=== PATIENT | male | born 1960 | race Caucasian/White ===

== ENCOUNTER 2024-09-05 13:45 | Outpatient (AMB) | payer OTHER, SELFPAY ==
--- NOTE | 2024-09-05 13:45 | MHC.PC.OV ---
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 Accompanied by: Self / Same As Patient Allergies No Known Allergies Allergy (Verified 09/05/24 13:48) Medication List - Last Reconciled 09/06/24 by Renny Burton MD dextroamphetamine sulfate 10 mg PO DAILY Tobacco use date assessed: 09/05/24 Fall risk assessment: No Falls in past year Last assessed Fall Risk: 09/05/24 Dental Screening Dental Screen Date: 09/05/24 Did you have a dental visit in the last 12 months?: Yes Did you have a dental problem in the last 6 months where you did not have access to dental care?: No Was dental information given to patient?: Patient has dentist HPI PE HPI Details ADHD on rx; doing well [facility] Medical History (Updated 09/06/24 @ 09:00 by Renny Burton MD) Elevated BP without diagnosis of hypertension Surgical History History of arthroscopy of right knee Family History Father No problems noted. Mother No problems noted. Family/Other Malignant hyperthermia Social History (Updated 11/08/20 @ 10:44 by MIHAELA Chapman) Housing: House Alcohol intake: current Alcohol intake frequency: a few times a week Alcohol type: beer Patient Tobacco Use Status: Never used Tobacco Tobacco use type: Cigarette e-Cigarette/Vaping Use: Never Used Second Hand Smoke Exposure: No service: No Current occupational status: employed Cognitive needs: No Hearing needs: No Vision needs: Yes Questionnaire PHQ-9 Over the last 2 weeks, how often have you been bothered by any of the following problems? 1. Little interest or pleasure in doing things: not at all 2. Feeling down, depressed, or hopeless: not at all 3. Trouble falling or staying asleep, or sleeping too much: not at all 4. Feeling tired or having little energy: not at all 5. Poor appetite or overeating: not at all 6. Feeling bad about yourself - or that you are a failure or have let yourself or your family down: not at all 7. Trouble concentrating on things, such as reading the newspaper or watching television: not at all 8. Moving or speaking so slowly that other people could have noticed. Or the opposite - being so fidgety or restless that you have been moving around a lot more than usual: not at all 9. Thoughts that you would be better off or of hurting yourself in some way: not at all Total score: 0 Depression Screening Interpretation: Negative Depression Screening Done: Yes 72948 - PHQ-9 Billing: Yes Source: Developed by Drs. George Dela Cruz, Ana Stanley, Clarence Sifuentes and colleagues, with an educational binta from [employer]. Thrive Questionnaire Date Thrive assessed: 09/05/24 I am a: Patient What is your living situation today?: I have a steady place to live Within the past 12 months, did the food you bought not last and you didn't have the money to get more?: Never true Within the past 12 months, did you worry whether your food would run out before you got money to buy more?: Never true THRIVE Score: 0 AUDIT C Alcohol Use Questionnaire (AUDIT-C) 1. How often do you have a drink containing alcohol?: Never Total Score: 0 Score Reviewed/Action Taken: Yes ANASTASIIA-7 AMB Questionnaire ANASTASIIA-7 Date ANASTASIIA - 7 assessed: 09/05/24 Feeling nervous, anxious, or on edge: 0 = Not at all Not being able to stop or control worryin = Not at all Worrying too much about different things: 0 = Not at all Trouble relaxin = Not at all Being so restless that it is hard to sit still: 0 = Not at all Becoming easily annoyed or irritable: 0 = Not at all Feeling afraid as if something awful might happen: 0 = Not at all Total ANASTASIIA-7 score (0-4 normal; 5-9 mild; 10-14 moderate; 15-21 severe): 0 Source: Developed by Drs. George Dela Cruz, Ana Stanley, Clarence Sifuentes and colleagues, with an educational binta from [employer]. ANASTASIIA-7 Assessment Billing ANASTASIIA-7 Assessment Tool: ANASTASIIA-7 Assessment 96698 Review of Systems Const Denies chills, Denies fatigue, Denies headache(s) and Denies weight loss Eyes Denies change in vision, Denies diplopia and Denies eye pain ENT Denies vertigo, Denies dizziness, Denies headache(s) and Denies nasal discharge Card Denies chest pain, Denies rapid heart rate and Denies dyspnea on exertion Resp Denies chest congestion, Denies cough, Denies pain with cough and Denies dyspnea on exertion GI Denies abdominal pain, Denies hematochezia and Denies change in bowel habits Musc Denies myalgias, Denies arthralgias and Denies joint swelling Skin/Breast Denies lesions and Denies unusual bruising Neuro Denies vertigo, Denies dizziness, Denies headache(s) and Denies focal weakness Endo Denies fatigue Physical exam (Primary Care) Vital Signs: Last Vital Signs Pulse 79 09/05/24 13:46 BP 156/102 H 09/05/24 13:46 Pulse Ox 92 09/05/24 13:46 Oxygen Delivery Method Room Air 09/05/24 13:46 BMI result Body Mass Index 24.8 Tobacco/Smoking Status: Tobacco use Status Tobacco use date assessed 09/05/24 09/05/24 13:51 Patient Tobacco Use Status Never used Tobacco 09/05/24 13:51 Tobacco use type Cigarette 09/05/24 13:51 e-Cigarette/Vaping Use Never Used 09/05/24 13:51 PHQ-9: PHQ-9 Score PHQ-9: Total score 0 09/05/24 13:51 Depression Screening Interpretation: Negative Thrive Assessment: Date of Thrive Assessment Date Thrive assessed 09/05/24 09/05/24 13:51 Const General: cooperative, healthy appearing and no acute distress Orientation/consciousness: oriented to person, oriented to place and oriented to time [facility] Head: Yes normal to inspection, Yes normocephalic and Yes atraumatic Mouth: Normal oral and palatal mucosa present and tongue normal Throat: Yes posterior oropharynx normal and Yes uvula midline Eyes General: appearance normal, both eyes and all related structures Neck Neck: Yes normal visual inspection, Yes full ROM and Yes no lymphadenopathy Thyroid: Thyroid normal Carotids: normal carotid upstroke Chest Chest palpation & inspection: normal inspection of the chest Resp Effort & Inspection: normal respiratory effort and able to speak in complete sentences Auscultation: clear to auscultation bilaterally Cardio Jugular venous distension: no JVD Palpation: normal PMI Rate: regular rate Rhythm: regular rhythm Heart sounds: S1 normal heart sound present and S2 normal heart sound present GI Inspection: Yes normal to inspection Palpation (GI): Soft to palpation and No hepatosplenomegaly present Auscultation: normal bowel sounds General: Yes no CVA tenderness Back/Spine/Pelvis Back: no CVA tenderness Skin General skin exam: no rashes or lesions noted Neuro General: oriented to person, oriented to place and oriented to time Extrem General: Yes normal to inspection and Yes full ROM Coding Level of Care Code Est Pt Prev Care >65y(24967) Diagnoses Physical exam Z00.00 ADHD F90.9 Additional Codes ANASTASIIA-7 Assessment Billing - ANASTASIIA-7 Assessment Tool: ANASTASIIA-7 Assessment 67840 ([id number]) Assessment & Plan Assessment & Plan (1) Physical exam: Code(s): Z00.00 - Encounter for general adult medical examination without abnormal findings Category: Medical Plan: stable; do labs (2) ADHD: Code(s): F90.9 - Attention-deficit hyperactivity disorder, unspecified type Category: Medical Plan: stable; same rx Orders: Orders Lipid Panel 09/05/24 Z13.220 - Encounter for screening for lipoid disorders Complete Blood Count Auto Diff 09/05/24 Z13.0 - Encounter for screening for diseases of the blood and blood-forming organs and certain disorders involving the immune mechanism Thyroid Stimulating Hormone 09/05/24 Z13.29 - Encounter for screening for other suspected endocrine disorder Comprehensive Shields. Panel Fast 09/05/24 Z13.9 - Encounter for screening, unspecified Medications: Refilled dextroamphetamine sulfate administer doses at least 4-6 hours apart 10 mg PO DAILY 30 tabs 0RF
[2024-09-05 13:46] VITALS: BP 156/102; PULSE 79; O2SAT 92; BMI 24.8
== END 2024-09-05 14:19 | disposition home or self-care (01) ==
PROVIDERS: PCP Internal Medicine; Visit Provider Internal Medicine
DX: Z00.00 Encounter for general adult medical examination without abnormal findings (principal); F90.9 Attention-deficit hyperactivity disorder, unspecified type

== ENCOUNTER → 2024-09-05 13:45 | Outpatient (BNVA) | payer OTHER, SELFPAY | PROVIDERS: PCP Internal Medicine; Visit Provider Internal Medicine | DX: Z00.00 Encounter for general adult medical examination without abnormal findings (principal); F90.9 Attention-deficit hyperactivity disorder, unspecified type | CPT/HCPCS: 96127 ==

== ENCOUNTER → 2024-09-29 08:03 | Outpatient (BNVA) | payer OTHER, SELFPAY | PROVIDERS: PCP Internal Medicine ==

== ENCOUNTER 2024-11-17 09:21 | Outpatient (AMB) | payer OTHER, SELFPAY ==
[2024-11-17 09:23] VITALS: BP 148/108; PULSE 84; O2SAT 98; BMI 25.6
--- NOTE | 2024-11-17 09:23 | MHC.PC.OV ---
Vital Signs 11/17/24 09:23 Height 6 ft 2 in Weight 199 lb 8 oz BMI 25.6 BP 148/108 H Blood Pressure Location Rt brachial Position Sitting Pulse 84 Pulse Source Pulse Oximeter Pulse Oximetry (%) 98 Oxygen Delivery Method Room Air Intake Visit Reasons: BP follow up Allergies No Known Allergies Allergy (Verified 11/17/24 09:27) Medication List - Last Reconciled 11/17/24 by Renny Burton MD dextroamphetamine sulfate 10 mg PO DAILY lisinopril 10 mg PO DAILY Tobacco use date assessed: 11/17/24 Fall risk assessment: No Falls in past year Last assessed Fall Risk: 11/17/24 Dental Screening Dental Screen Date: 11/17/24 Did you have a dental visit in the last 12 months?: Yes Did you have a dental problem in the last 6 months where you did not have access to dental care?: No Was dental information given to patient?: Patient has dentist HPI BP follow up HPI Details BP has been elevated for a few months [facility] Medical History Elevated BP without diagnosis of hypertension Surgical History History of arthroscopy of right knee Family History Father No problems noted. Mother No problems noted. Family/Other Malignant hyperthermia Social History Housing: House Alcohol intake: current Alcohol intake frequency: a few times a week Alcohol type: beer Patient Tobacco Use Status: Current everyday Tobacco user Tobacco use type: Cigar (2-3 a day) e-Cigarette/Vaping Use: Never Used Second Hand Smoke Exposure: No service: No Current occupational status: employed Cognitive needs: No Hearing needs: No Vision needs: Yes Questionnaire PHQ-9 Over the last 2 weeks, how often have you been bothered by any of the following problems? 1. Little interest or pleasure in doing things: not at all 2. Feeling down, depressed, or hopeless: not at all 3. Trouble falling or staying asleep, or sleeping too much: not at all 4. Feeling tired or having little energy: not at all 5. Poor appetite or overeating: not at all 6. Feeling bad about yourself - or that you are a failure or have let yourself or your family down: not at all 7. Trouble concentrating on things, such as reading the newspaper or watching television: not at all 8. Moving or speaking so slowly that other people could have noticed. Or the opposite - being so fidgety or restless that you have been moving around a lot more than usual: not at all 9. Thoughts that you would be better off or of hurting yourself in some way: not at all Total score: 0 Depression Screening Interpretation: Negative Depression Screening Done: Yes 16018 - PHQ-9 Billing: Yes Source: Developed by Drs. George Dela Cruz, Ana Stanley, Clarence Sifuentes and colleagues, with an educational binta from [employer]. Thrive Questionnaire Date Thrive assessed: 09/05/24 I am a: Patient What is your living situation today?: I have a steady place to live Within the past 12 months, did the food you bought not last and you didn't have the money to get more?: Never true Within the past 12 months, did you worry whether your food would run out before you got money to buy more?: Never true Do you have trouble paying for medicines?: No Do you have trouble getting transportation to medical appointments?: No Do you have trouble paying your heating and electricity bill?: No Do you have trouble taking care of your child, family member or friend?: No Do you have trouble with day-to-day activities such as bathing, preparing meals, shopping, managing finances, etc.?: No Are you currently unemployed and looking for a job?: No Are you interested in more education?: I choose not to answer this question Please select the resources that you would like help with: None Currently or been in a relationship where the following occur: No concerns reported THRIVE Score: 0 AUDIT C Alcohol Use Questionnaire (AUDIT-C) 1. How often do you have a drink containing alcohol?: 2-3 times a week 2. How many drinks containing alcohol do you have on a typical day when you are drinking?: 1 or 2 3. How often do you have six or more drinks on one occasion?: Never Total Score: 3 Score Reviewed/Action Taken: Yes ANASTASIIA-7 AMB Questionnaire ANASTASIIA-7 Date ANASTASIIA - 7 assessed: 09/05/24 Feeling nervous, anxious, or on edge: 0 = Not at all Not being able to stop or control worryin = Not at all Worrying too much about different things: 0 = Not at all Trouble relaxin = Not at all Being so restless that it is hard to sit still: 0 = Not at all Becoming easily annoyed or irritable: 0 = Not at all Feeling afraid as if something awful might happen: 0 = Not at all Total ANASTASIIA-7 score (0-4 normal; 5-9 mild; 10-14 moderate; 15-21 severe): 0 Source: Developed by Drs. George Dela Cruz, Ana Stanley, Clarence Sifuentes and colleagues, with an educational binta from [employer]. ANASTASIIA-7 Assessment Billing ANASTASIIA-7 Assessment Tool: ANASTASIIA-7 Assessment 70412 Review of Systems Const Denies chills, Denies headache(s) and Denies weight loss ENT Denies headache(s) Card Denies chest pain, Denies syncope, Denies irregular heart rhythm and Denies dyspnea Resp Denies chest congestion, Denies cough and Denies dyspnea GI Denies abdominal pain, Denies change in stool character, Denies nausea and Denies vomiting Musc Denies deformity and Denies joint swelling Neuro Denies syncope and Denies headache(s) Physical exam (Primary Care) Vital Signs: Last Vital Signs Pulse 84 11/17/24 09:23 BP 148/108 H 11/17/24 09:23 Pulse Ox 98 11/17/24 09:23 Oxygen Delivery Method Room Air 11/17/24 09:23 BMI result Body Mass Index 25.6 Tobacco/Smoking Status: Tobacco use Status Tobacco use date assessed 11/17/24 11/17/24 09:29 Patient Tobacco Use Status Current everyday Tobacco 11/17/24 09:29 Tobacco use type Cigar (2-3 a day) 11/17/24 09:29 e-Cigarette/Vaping Use Never Used 11/17/24 09:23 PHQ-9: PHQ-9 Score PHQ-9: Total score 0 11/17/24 09:29 Depression Screening Interpretation: Negative Thrive Assessment: Date of Thrive Assessment Date Thrive assessed 09/05/24 11/17/24 09:23 Currently or been in a relationship where the following occur: No concerns reported Const General: cooperative, comfortable, no acute distress and alert Neck Neck: Yes no lymphadenopathy Thyroid: Thyroid normal Resp Effort & Inspection: normal respiratory effort Auscultation: clear to auscultation bilaterally Percussion: percussion normal Cardio Jugular venous distension: no JVD Palpation: normal PMI Rate: regular rate Rhythm: regular rhythm Heart sounds: S1 normal heart sound present and S2 normal heart sound present GI Inspection: Yes normal to inspection Palpation (GI): No hepatosplenomegaly present Skin General skin exam: no rashes or lesions noted Extrem General: Yes no clubbing, cyanosis or edema Coding Level of Care Code Est Pt Level 3 (73710) Diagnoses Hypertension I10 Additional Codes ANASTASIIA-7 Assessment Billing - ANASTASIIA-7 Assessment Tool: ANASTASIIA-7 Assessment 34360 ([id number]) PHQ-9 - 89606 - PHQ-9 Billing: Yes ([id number]) Assessment & Plan Assessment & Plan (1) Hypertension: Code(s): I10 - Essential (primary) hypertension Category: Medical Plan: rx sent Medications: New lisinopril 10 mg PO DAILY 30 tabs 3RF Refilled dextroamphetamine sulfate administer doses at least 4-6 hours apart 10 mg PO DAILY 90 tabs 0RF
== END 2024-11-17 10:28 | disposition home or self-care (01) ==
PROVIDERS: PCP Internal Medicine; Visit Provider Internal Medicine
DX: I10 Essential (primary) hypertension (principal)

== ENCOUNTER → 2024-11-17 09:21 | Outpatient (BNVA) | payer OTHER, SELFPAY | PROVIDERS: PCP Internal Medicine; Visit Provider Internal Medicine | DX: I10 Essential (primary) hypertension (principal) | CPT/HCPCS: 96127 ==

== ENCOUNTER 2024-12-08 08:53 | Outpatient (AMB) | payer OTHER, SELFPAY ==
--- NOTE | 2024-12-08 09:00 | A.OFFPC_ITS ---
Vital Signs 12/08/24 09:02 Height 6 ft 2 in Weight 198 lb 6 oz BMI 25.5 BP 150/90 H Blood Pressure Location Lt brachial Position Sitting Pulse 141 H Pulse Source Pulse Oximeter Pulse Oximetry (%) 96 Oxygen Delivery Method Room Air Intake Visit Reasons: 3 week f/u Intake Note: Patient is here to follow up on HTN. 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 Response Group Officer: Not Required per policy Accompanied by: Self / Same As Patient Allergies No Known Allergies Allergy (Verified 12/08/24 09:02) Medication List - Last Reconciled 12/08/24 by Renny Burton MD dextroamphetamine sulfate 10 mg PO DAILY lisinopril 10 mg PO DAILY Tobacco use date assessed: 12/08/24 Fall risk assessment: No Falls in past year Last assessed Fall Risk: 12/08/24 Dental Screening Dental Screen Date: 12/08/24 Did you have a dental visit in the last 12 months?: Yes Did you have a dental problem in the last 6 months where you did not have access to dental care?: No Was dental information given to patient?: Patient has dentist HPI 3 week f/u HPI Details htn on rx; bp still too high [facility] Medical History Elevated BP without diagnosis of hypertension Surgical History History of arthroscopy of right knee Family History (Updated 12/08/24 @ 09:01 by MIHAELA Chapman) Father No problems noted. Mother No problems noted. Family/Other Malignant hyperthermia Social History Housing: House Alcohol intake: current Alcohol intake frequency: a few times a week Alcohol type: beer Patient Tobacco Use Status: Current everyday Tobacco user Tobacco use type: Cigar (2-3 a day) e-Cigarette/Vaping Use: Never Used Second Hand Smoke Exposure: No service: No Current occupational status: employed Cognitive needs: No Hearing needs: No Vision needs: Yes Questionnaire PHQ-9 Over the last 2 weeks, how often have you been bothered by any of the following problems? 1. Little interest or pleasure in doing things: not at all 2. Feeling down, depressed, or hopeless: not at all 3. Trouble falling or staying asleep, or sleeping too much: not at all 4. Feeling tired or having little energy: not at all 5. Poor appetite or overeating: not at all 6. Feeling bad about yourself - or that you are a failure or have let yourself or your family down: not at all 7. Trouble concentrating on things, such as reading the newspaper or watching television: not at all 8. Moving or speaking so slowly that other people could have noticed. Or the opposite - being so fidgety or restless that you have been moving around a lot more than usual: not at all 9. Thoughts that you would be better off or of hurting yourself in some way: not at all Total score: 0 Depression Screening Interpretation: Negative Depression Screening Done: Yes Source: Developed by Drs. George Dela Cruz, Ana Stanley, Clarence Sifuentes and colleagues, with an educational binta from [employer]. Thrive Questionnaire Date Thrive assessed: 12/08/24 AUDIT C Alcohol Use Questionnaire (AUDIT-C) 1. How often do you have a drink containing alcohol?: 2-3 times a week 2. How many drinks containing alcohol do you have on a typical day when you are drinking?: 1 or 2 Total Score: 3 ANASTASIIA-7 AMB Questionnaire ANASTASIIA-7 Date ANASTASIIA - 7 assessed: 12/08/24 Feeling nervous, anxious, or on edge: 0 = Not at all Not being able to stop or control worryin = Not at all Worrying too much about different things: 0 = Not at all Trouble relaxin = Not at all Being so restless that it is hard to sit still: 0 = Not at all Becoming easily annoyed or irritable: 0 = Not at all Feeling afraid as if something awful might happen: 0 = Not at all Total ANASTASIIA-7 score (0-4 normal; 5-9 mild; 10-14 moderate; 15-21 severe): 0 Source: Developed by Drs. George Dela Cruz, Ana Stanley, Clarence Sifuentes and colleagues, with an educational binta from [employer]. Review of Systems Const Denies chills, Denies headache(s) and Denies weight loss ENT Denies headache(s) Card Denies chest pain, Denies syncope, Denies irregular heart rhythm and Denies dyspnea Resp Denies chest congestion, Denies cough and Denies dyspnea GI Denies abdominal pain, Denies change in stool character, Denies nausea and Denies vomiting Musc Denies deformity and Denies joint swelling Neuro Denies syncope and Denies headache(s) Physical exam (Primary Care) Vital Signs: Last Vital Signs Pulse 141 H 12/08/24 09:02 BP 150/90 H 12/08/24 09:02 Pulse Ox 96 12/08/24 09:02 Oxygen Delivery Method Room Air 12/08/24 09:02 BMI result Body Mass Index 25.5 Tobacco/Smoking Status: Tobacco use Status Tobacco use date assessed 12/08/24 12/08/24 09:05 Patient Tobacco Use Status Current everyday Tobacco 12/08/24 09:00 Tobacco use type Cigar (2-3 a day) 12/08/24 09:00 e-Cigarette/Vaping Use Never Used 12/08/24 09:00 PHQ-9: PHQ-9 Score PHQ-9: Total score 0 12/08/24 09:05 Depression Screening Interpretation: Negative Thrive Assessment: Date of Thrive Assessment Date Thrive assessed 12/08/24 12/08/24 09:00 Const General: cooperative, comfortable, no acute distress and alert Neck Neck: Yes no lymphadenopathy Thyroid: Thyroid normal Resp Effort & Inspection: normal respiratory effort Auscultation: clear to auscultation bilaterally Percussion: percussion normal Cardio Jugular venous distension: no JVD Palpation: normal PMI Rate: regular rate Rhythm: regular rhythm Heart sounds: S1 normal heart sound present and S2 normal heart sound present GI Inspection: Yes normal to inspection Palpation (GI): No hepatosplenomegaly present Skin General skin exam: no rashes or lesions noted Extrem General: Yes no clubbing, cyanosis or edema Coding Level of Care Code Est Pt Level 3 (01399) Diagnoses Hypertension I10 Assessment & Plan Assessment & Plan (1) Hypertension: Code(s): I10 - Essential (primary) hypertension Category: Medical Plan: increase lisinopril to 20mg qd Medications: New lisinopril 20 mg PO DAILY 30 tabs 2RF lisinopril 20 mg PO DAILY 30 tabs 2RF Discontinued lisinopril Discontinued Reason: Doctor's Order 10 mg PO DAILY 30 tabs 3RF
[2024-12-08 09:02] VITALS: BP 150/90; PULSE 141; O2SAT 96; BMI 25.5
== END 2024-12-08 09:10 | disposition home or self-care (01) ==
PROVIDERS: PCP Internal Medicine; Visit Provider Internal Medicine
DX: I10 Essential (primary) hypertension (principal)

== ENCOUNTER 2025-01-12 10:20 | Outpatient (AMB) | payer OTHER, SELFPAY ==
--- NOTE | 2025-01-12 10:21 | MHC.PC.OV ---
Vital Signs 01/12/25 10:22 Height 6 ft 2 in Weight 188 lb 8 oz BMI 24.2 BP 110/70 Blood Pressure Location Lt brachial Position Sitting Pulse 78 Pulse Source Pulse Oximeter Temp 97.3 F Temp Source Temporal Artery Scan Pulse Oximetry (%) 98 Oxygen Delivery Method Room Air Intake Visit Reasons: 4 week f/u Intake Note: Patient is here to follow up on HTN. 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 Accompanied by: Self / Same As Patient Allergies No Known Allergies Allergy (Verified 01/12/25 10:22) Medication List - Last Reconciled 01/15/25 by Renny Burton MD apixaban (Eliquis) 5 mg PO BID carvedilol 12.5 mg PO BID dextroamphetamine sulfate 10 mg PO DAILY digoxin 0.125 mg PO DAILY folic acid 1 mg PO DAILY furosemide 20 mg PO DAILY lisinopril 20 mg PO DAILY magnesium oxide 400 mg PO DAILY nicotine topical DAILY sacubitril-valsartan 24-26 mg (Entresto) 1 tab PO BID spironolactone 12.5 mg PO DAILY thiamine HCl (vitamin B1) 100 mg PO DAILY Tobacco use date assessed: 01/12/25 Fall risk assessment: 1 Fall in past year Last assessed Fall Risk: 01/12/25 Dental Screening Dental Screen Date: 12/08/24 HPI 4 week f/u HPI Details had an admission for afib; converted to NSR ; sees cardiology; feels well [facility] Medical History Elevated BP without diagnosis of hypertension Surgical History History of arthroscopy of right knee Family History Father No problems noted. Mother No problems noted. Family/Other Malignant hyperthermia Social History Housing: House Alcohol intake: current Alcohol intake frequency: a few times a week Alcohol type: beer Patient Tobacco Use Status: Current everyday Tobacco user Tobacco use type: Cigar (2-3 a day) e-Cigarette/Vaping Use: Never Used Second Hand Smoke Exposure: No service: No Current occupational status: employed Cognitive needs: No Hearing needs: No Vision needs: Yes Questionnaire Thrive Questionnaire Date Thrive assessed: 12/08/24 ANASTASIIA-7 AMB Questionnaire ANASTASIIA-7 Date ANASTASIIA - 7 assessed: 12/08/24 Source: Developed by Drs. George Dela Cruz, Ana Stanley, Clarence Sifuentes and colleagues, with an educational binta from [employer]. Review of Systems Const Denies chills, Denies headache(s) and Denies weight loss ENT Denies headache(s) Card Denies chest pain, Denies syncope, Denies irregular heart rhythm and Denies dyspnea Resp Denies chest congestion, Denies cough and Denies dyspnea GI Denies abdominal pain, Denies change in stool character, Denies nausea and Denies vomiting Musc Denies deformity and Denies joint swelling Neuro Denies syncope and Denies headache(s) Physical exam (Primary Care) Vital Signs: Last Vital Signs Temp 97.3 F 01/12/25 10:22 Pulse 78 01/12/25 10:22 BP 110/70 01/12/25 10:22 Pulse Ox 98 01/12/25 10:22 Oxygen Delivery Method Room Air 01/12/25 10:22 BMI result Body Mass Index 24.2 Tobacco/Smoking Status: Tobacco use Status Tobacco use date assessed 01/12/25 01/12/25 10:31 Patient Tobacco Use Status Current everyday Tobacco 01/12/25 10:21 Tobacco use type Cigar (2-3 a day) 01/12/25 10:21 e-Cigarette/Vaping Use Never Used 01/12/25 10:21 Thrive Assessment: Date of Thrive Assessment Date Thrive assessed 12/08/24 01/12/25 10:21 Const General: cooperative, comfortable, no acute distress and alert Neck Neck: Yes no lymphadenopathy Thyroid: Thyroid normal Resp Effort & Inspection: normal respiratory effort Auscultation: clear to auscultation bilaterally Percussion: percussion normal Cardio Jugular venous distension: no JVD Palpation: normal PMI Rate: regular rate Rhythm: regular rhythm Heart sounds: S1 normal heart sound present and S2 normal heart sound present GI Inspection: Yes normal to inspection Palpation (GI): No hepatosplenomegaly present Skin General skin exam: no rashes or lesions noted Extrem General: Yes no clubbing, cyanosis or edema Coding Level of Care Code Est Pt Level 3 (33850) Diagnoses Atrial fibrillation I48.91 Assessment & Plan Assessment & Plan (1) Atrial fibrillation: Code(s): I48.91 - Unspecified atrial fibrillation Category: Medical Plan: as per cardiology
[2025-01-12 10:22] VITALS: BP 110/70; PULSE 78; TEMP 36.3; O2SAT 98; BMI 24.2
--- OUTSIDE RECORDS SUMMARY | 2025-01-12 11:08 | XMS_ITS | Encounter Summary ---
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 Repairer Apprentice Name Role Phone Renny Burton MD Primary Care Provider [phone] Reason for Visit * Reason Comments Shortness of Breath * Auth/Cert (Routine) Specialty Diagnoses / Procedures Referred By Contac t Referred To Contact Diagnoses Atrial fibrillation with RVR Acute heart failure, unspecified heart failure type Abnormal electrocardiogram (ECG) (EKG) Referral ID Status Reason Start Date Expiration Date Visits Re quested Visits Authorized [id number] 1 1 Encounter Details Date Type Department Care Team (Late st Contact Info) Description 12/30/2024 9:51 AM EST - 01/03/2025 12:48 PM [facility] Hospital Encounter [facility] Telemetry [address] [address] Harinder Mcleod MD [address] [place] [id number] [email or web address] Williamson MD [address] [place] [email or web address] Jocelyne Beck MD [address] [place] [id number] [email or web address] Onelia Guy MD [address] [place] [id number] [email or web address] April Martinez, DO [address] [place] [address] [email or web address] Discharge Disposition: Home or Self Care Social History Tobacco Use Types Packs/Day Years Used Date Smoking Tobacco: Every Day Cigarettes Smokeless Tobacco: Never Tobacco Cessation:Ready to Q uit: Not Asked; Counseling Given: Not Answered Alcohol Use Standard Drinks/Week Comments Yes 0 (1 standard drink = 0.6 oz pur e alcohol) Education Answer Date Recorded Are you interested in more education? Not on graciela e 12/30/2024 Are you concerned about learning? Not on file 12/30/2024 No 12/30/2024 No 12/30/2024 Digital Access Answer Date Recorded No 12/30/2024 No 12/30/2024 Reliable internet access at home? Not on file 12/30/2024 Device with a working camera? Not on file Intimate Partner Violence Answer Date R ecorded Are you denied basic needs s uch as food, clothing, or medical care? No 12/30/2024 In the past 12 months have y ou been in a relationship with a person who hurts, threatens, or tries to control you? No 12/30/2024 Are you denied basic needs s uch as food, clothing, or medical care? No 12/30/2024 In the past 12 months have y ou been in a relationship with a person who hurts, threatens, or tries to control you? No 12/30/2024 Sex and Gender Information Value Date Recorded Sex Assigned at Not on file Gender Identity Not on file Sexual Orientation Not on file documented as of this encounter Last Filed Vital Signs Vital Sign Reading Time Taken Comments Blood Pressure 113/82 01/03/2025 11:49 AM EST Pulse 84 01/03/2025 11:49 AM EST Temperature 36.6 ??C (97.9 ??F) 01/03/2025 1 1:49 AM EST Respiratory Rate 18 01/03/2025 11:4 9 AM EST Oxygen Saturation 95% 01/03/2025 11: 49 AM EST Inhaled Oxygen Concentration - - Weight 86.1 kg (189 lb 13.1 oz) 01/03/2025 4:58 AM EST Height 182.9 cm (6') 12/30/2024 9:43 AM EST Body Mass Index 25.74 12/30/2024 9:43 AM EST documented in this encounter Discharge Summaries * Michelle April Marisela, DO - 01/03/2025 11:44 AM EST Images from the original note were not included. Physician Discharge Summary Admit date: 12/30/2024 Discharge date: 01/03/2025 Patient Information Hector Gonzalez, 64 y.o. male ( = 1960) Home Address: [address] [place] [address] (home) Preferred Language: Ethiopian Written Language: Ethiopian Needs Birth Attendant: No Type of Advance Care Directive(s): Health Care Proxy Does patient have a Health Care Proxy form completed?: HCP is NOT available, patient/family will provide an existing copy Health Care Agents There are no Health Care Agents on file. Code Status at Discharge: Full Code To be discharged to: Discharged to home or self care (routine discharge) Patient/Family/Caregiver discharge preference/goals : Home Patient/Family/Caregiver participated and agreed with DC plan: Yes Historical information Reason for Admission Atrial fibrillation with RVR Acute heart failure, unspecified heart failure type Abnormal electrocardiogram (ECG) (EKG) Principal Problem: Atrial fibrillation with RVR Active Problems: Alcohol abuse Attention deficit hyperactivity disorder (ADHD), predominantly inattentive type Hyperlipidemia Hyponatremia Acute systolic heart failure Resolved Problems: * No resolved hospital problems. 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 He has a beside ECHO that showed an EF of 30%. He was seen by cards and loaded with dig for HR control. With diuresis and HR control, EF improved to 45%. Atrial fibrillation with RVR Patient presented with A-fib RVR and decompensated heart failure. He noticed increased SOB, orthopnea and edema about a week ago. 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 After a time his symptoms resolved spontaneously and patient was loaded with digoxin. He was started on Eliquis for [id number] score of 3. He was started on coreg and he tolerated it well, no digital vasoconstriction. His dose was titrated fro rate control and he is currently on 12.5 BID. He remains on Digoxin 0.125mg. Dig level 1. The plan is for cardioversion after 4 weeks of Eliquis. Acute systolic heart failure He had a bedside echo that showed an EF of around 30%. This was followed up by an official echo (after diuresis and better rate control) and EF was 45%. Likely tachycardia mediated due to A-fib from EtOH use Spironolactone and Entresto were initiated on admission. Symptoms improved with diuresis, he is currently -6 L He has a stress test that showed no ischemia/infarction. -Lisinopril stopped -Entrestos and spironolactone continued at d/c. -Lasix 20 mg PO, titrate as needed to maintain dry weight f 189lbs. Alcohol abuse This gentleman drinks daily and drinks varying amounts of alcohol including up to a pint of vodka per day or at times just some beers. Last hard alcohol was about a week ago. He is at risk for withdrawal, but given the fact he is never had any severe signs or symptoms of alcohol withdrawal in the past per his own history, no DTs or seizures we will start him on the CIWA scale with Ativan, can escalate to phenobarbital if needed, will replete thiamine multivitamin and folate Social work consult, he is quite motivated to stop and states that he would like to stop cold turkey. He has had no signs or symptoms of alcohol withdrawal He will look into o/p resources like the [facility]. Alcoholic hepatitis Patient does have a mild transaminitis, LFTs slightly increased today compared to yesterday infectious hepatitis serologies for hepatitis B and C are nonreactive. - Repeat LFTs in a.m. to continue to trend. - Abstain from alcohol use Hyponatremia Resolved. Presents tonight with a mild hyponatremia with sodium of 128. Hyponatremia is likely multifactorialincluding lisinopril, use of beer and CHF. Sodium has corrected to 138. Attention deficit hyperactivity disorder (ADHD), predominantly inattentive type patient's dextroamphetamine was held in the setting of A-fib with RVR. Patient remained stable. Hyperlipidemia Patient is not on a statin, lipid panel shows cholesterol of 108 with LDL of 50. No indication for statin at this time. Medications Allergies: Patient has no known allergies. Prior to Admission Medications Prescriptions dextroamphetamine sulfate 10 MG tablet Sig: Take 10 mg by mouth daily. lisinopril (PRINIVIL,ZESTRIL) 10 MG tablet Sig: Take 1 tablet by mouth every morning. Facility-Administered Medications: None Medication List STOP taking these medications lisinopril 10 MG tablet Commonly known as: PRINIVIL,ZESTRIL TAKE these medications Instructions apixaban 5 mg tablet Commonly known as: ELIQUIS Last time this was given: January 03, 2025 8:49 AM Take 1 tablet (5 mg total) by mouth 2 (two) times a day. carvedilol 12.5 MG tablet Commonly known as: COREG Last time this was given: January 03, 2025 8:48 AM Take 1 tablet (12.5 mg total) by mouth 2 (two) times a day with meals. dextroamphetamine sulfate 10 MG tablet Take 10 mg by mouth daily. digoxin 125 mcg tablet Commonly known as: LANOXIN Last time this was given: January 03, 2025 8:48 AM Take 1 tablet (0.125 mg total) by mouth daily. Start taking on: January 04, 2025 folic acid 1 MG tablet Commonly known as: FOLVITE Last time this was given: January 03, 2025 8:49 AM Take 1 tablet (1 mg total) by mouth daily. Start taking on: January 04, 2025 furosemide 40 MG tablet Commonly known as: LASIX Last time this was given: January 03, 2025 8:48 AM Take 0.5 tablets (20 mg total) by mouth daily. Start taking on: January 04, 2025 magnesium oxide 400 mg (241.3 mg elemental) tablet Commonly known as: MAG-OX Last time this was given: January 03, 2025 8:49 AM Take 1 tablet (400 mg total) by mouth daily. Start taking on: January 04, 2025 nicotine 21 mg/24 hr Commonly known as: NICODERM CQ Last time this was given: January 03, 2025 8:[address] 1 patch onto the skin daily. Start taking on: January 04, 2025 sacubitriL-valsartan 24-26 mg per tablet Commonly known as: ENTRESTO Last time this was given: January 03, 2025 8:48 AM Take 1 tablet by mouth 2 (two) times a day. spironolactone 25 MG tablet Commonly known as: ALDACTONE Last time this was given: January 03, 2025 8:49 AM Take 0.5 tablets (12.5 mg total) by mouth daily. Start taking on: January 04, 2025 thiamine 100 mg Tab tablet Commonly known as: Vitamin B-1 Last time this was given: January 03, 2025 9:29 AM Take 1 tablet (100 mg total) by mouth daily. Start taking on: January 04, 2025 Where to Get Your Medications These medications were sent to [facility]/pharmacy #[id number] - [place], [place] - [address] [facility] [address] [facility] [address] apixaban 5 mg tablet carvedilol 12.5 MG tablet digoxin 125 mcg tablet folic acid 1 MG tablet furosemide 40 MG tablet magnesium oxide 400 mg (241.3 mg elemental) tablet nicotine 21 mg/24 hr sacubitriL-valsartan 24-26 mg per tablet spironolactone 25 MG tablet thiamine 100 mg Tab tablet Hospital Care Team Service: Medicine Inpatient Attending: April Martinez DO Attending phys phone: Discharge Unit: [place] [address] Primary Care Physician: Renny Burton MD [phone] Transitional Plan Scheduled appointments: Your Follow-Up Appointments Renny Burton MD Specialty: Internal Medicine Relationship: PCP - [address] [place] [address] Follow up in 1 week(s) Signed Discharge Orders (From admission, onward) Ordered 01/03/25 1124 Activity as tolerated 01/03/25 1124 Discharge diet Comments: Diet Regular 01/03/25 1124 Wound care: Last inpatient order Comments: Wound Care None 01/03/25 1124 For immediate questions regarding your hospitalization, your medications, and any pending test results please contact your PCP: Renny Burton MD at [phone]. Comments: For immediate questions regarding your hospitalization, your medications, and any pendingtest results please contact your PCP: Renny Burton MD at [phone]. 01/03/25 1120 Reason for not ordering smoking cessation medication(s) Question: Reason for not ordering medication(s): Answer: Patient already on approved tobacco cessation medication Discharge instructions and important events and results You were found to have Atrial Fibrillation and a Cardiomyopathy due to chronic fast heart rate and alcohol use. You have been started on a number of new medications to control your heat rate and resolve your cardiomyopathy. You have also been started on a blood thinner to prevent stroke. Please continue to take all of your medications and follow up with Dr Barrett (cardiology) with you have questions. Dr Barrett will set you up for a cardioversion after you have been on blood thinners for 4 weeks. Exam Temperature: 36.5 ??C (97.7 ??F) (01/03/25735) Heart Rate: 94 (01/03/25 1027) BP: 122/74 (01/03/25 1027) Respiratory Rate: 18 (01/03/25 0900) SpO2: 98 % (01/03/25735) O2 Device: None (Room air) (01/03/25735) Weight: 86.1 kg (189 lb 13.1 oz) (01/03/25 0458) Height: 182.9 cm (6') (12/30/24942) BMI (Calculated): 27.12 (12/30/24942) Discharge Exam Significant Discharge Exam Findings: Alert, oriented and in no acute distress Heart, irr, irr, no murmur Lungs ctab Scant LE edema Disability Identity and Disability Accommodations Comments Disability Identity None Data/Results Results are shown for the following tests if performed (CBC, Chem 7, Mg, Coag). If the patient did not have any of these tests, no results will be shown here. Lab Results Component Value Date/Time WBC 7.19 01/02/2025516 RBC 4.98 01/02/2025516 HGB 15.2 01/02/2025516 HCT 46.8 01/02/2025516 MCH 30.5 01/02/2025516 MCV 94.0 01/02/2025516 PLT 237 01/02/2025516 RDW 13.3 01/02/2025516 Lab Results Component Value Date/Time NA 138 01/02/2025516 K 4.4 01/02/2025516 CL 101 01/02/2025516 CO2 26 01/02/2025516 BUN 16 01/02/2025516 CRE 0.90 01/02/2025516 CA 8.2 (L) 01/02/2025516 GLU 101 (H) 01/02/2025516 Lab Results Component Value Date/Time MG 1.6 2024 0607 >30 min documented in this encounter Discharge Instructions * Discharge Instructions* April Martinez DO - 01/03/2025 11:30 AM EST You were found to have Atrial Fibrillation and a Cardiomyopathy due to chronic fast heart rate and alcohol use. You have been started on a number of new medications to control your heat rate and resolve your cardiomyopathy. You have also been started on a blood thinner to prevent stroke. Please continue to take all of your medications and follow up with Dr Barrett (cardiology) with you have questions. Dr Barrett will set you up for a cardioversion after you have been on blood thinners for 4 weeks. * Attachments The following attachments cannot be sent through Care Everywhere. * Smoking Cessation: Health Benefits: General Info (Ethiopian) * 9 Ways to Cut Back on Drinking: Quick List (Ethiopian) * Sacubitril/Valsartan Oral Tablet (SACUBITRIL/VALSARTAN - ORAL) (Ethiopian) * Spironolactone Oral Tablet (SPIRONOLACTONE - ORAL) (Ethiopian) * Atrial Fibrillation (Ethiopian) * Apixaban Oral Tablet (APIXABAN - ORAL) (Ethiopian) documented in this encounter Medications at Time of Discharge Medication Sig Dispensed Refills Start Date End Date dextroamphetamine sulfate 10 MG tablet Take 10 mg by mouth daily. 12/12/2024 apixaban (ELIQUIS) 5 mg tablet Take 1 tablet (5 mg total) by mouth 2 (two) times a day. 60 tablet 1 01/03/2025 carvedilol (COREG) 12.5 MG tablet Take 1 tablet (12.5 mg total) by mouth 2 (two) times a day with meals. 60 tablet 1 01/03/2025 digoxin (LANOXIN) 125 mcg tablet Take 1 tablet (0.125 mg total) by mouth daily. 30 tablet 1 01/04/2025 folic acid (FOLVITE) 1 MG tablet Take 1 tablet (1 mg total) by mouth daily. 30 tablet 01/04/2025 furosemide (LASIX) 40 MG tablet Take 0.5 tablets (20 mg total) by mouth daily. 20 tablet 1 01/04/2025 magnesium oxide (MAG-OX) 400 mg (241.3 mg elemental) tablet Take 1 tablet (400 mg total) by mouth daily. 30 tablet 01/04/2025 nicotine (NICODERM CQ) 21 mg/[address] 1 patch onto the skin daily. 14 patch 01/04/2025 sacubitriL-valsartan (ENTRESTO) 24-26 mg per tablet Take 1 tablet by mouth 2 (two) times a day. 60 tablet 1 01/03/2025 spironolactone (ALDACTONE) 25 MG tablet Take 0.5 tablets (12.5 mg total) by mouth daily. 30 tablet 1 01/04/2025 thiamine (VITAMIN B-1) 100 mg Tab tablet Take 1 tablet (100 mg total) by mouth daily. 30 tablet 01/04/2025 documented as of this encounter Progress Notes Only the most recent of 14 notes is shown. * David Barrett MD - 01/03/2025 12:35 PM EST Images from the original note were not included. [facility] Cardiology Consultation Date: 01/03/2025 Referring Physician: No ref. provider found Primary Platform Material Handler Manager: YAMIL Reason for Initial Consultation: Atrial fibrillation History of Presenting Illness: Hector Gonzalez is a 64 y.o. male with past medical history of hypertension presenting with shortness of breath and new onset A-fib. Cardiology consulted for A-fib and possible heart failure exacerbation. Patient states has had worsening dyspnea, especially with exertion and now at rest over the past week. Patient states drinks almost on a daily basis. At least 2 beers and can be up to a pint of vodka on some days. Patient is accompanied by his . Patient states does have some chest tightness, but no relieving or exertional components. States has a fullness in his abdomen, is hungry but has no appetite. States needs to sit up to get obtain relief from shortness of breath. Patient deniesany vomiting, dizziness, palpitations, syncope, or other concerning symptoms at this time. Update 2024 Patient seen and examined. States feeling significantly better. Edema in the lower extremities has improved. Patient rate controlled in the 90s on telemetry. Patient denies any current chest pain, shortness of breath, abdominal pain, nausea, vomiting, palpitations, dizziness, syncope or other concerning symptoms. Update January 01, 2025 Patient seen and examined. States feeling significantly better. Edema in the lower extremities has improved. Patient rate controlled in the 90s on telemetry. Patient denies any current chest pain, shortness of breath, abdominal pain, nausea, vomiting, palpitations, dizziness, syncope or other concerning symptoms. Update January 03, 2025 Patient seen and examined. States feeling significantly better. Pt HR imporved on telemetry to 70'sto 80's. Has diuresed over 20lbs. Patient denies any current chest pain, shortness of breath, abdominal pain, nausea, vomiting, palpitations, dizziness, syncope or other concerning symptoms. Past Medical History: Past Medical History: Diagnosis Date ADD (attention deficit disorder) Hypertensive disorder Past Surgical History: No past surgical history on file. Current Medications: Outpatient Medications Marked as Taking for the 12/30/24 encounter (Hospital Encounter) Medication Sig Dispense Refill Last Dispense dextroamphetamine sulfate 10 MG tablet Take 10 mg by mouth daily. Unknown (patient-reported) lisinopril (PRINIVIL,ZESTRIL) 10 MG tablet Take 1 tablet by mouth every morning. Unknown (patient-reported) Allergies: No Known Allergies Family History: Family History Problem Relation Age of Onset Rheumatic fever Father Social History: Social History Social History Narrative Works in [employer] Social History Tobacco Use Smoking status: Every Day Types: Cigarettes Smokeless tobacco: Never Substance Use Topics Alcohol use: Yes Review of Systems: Constitutional: Denies subjective fever, weight loss, or chills. Eyes: Denies blurred vision or vision loss. Ear, Nose, & Throat: Denies dysphagia, sore throat, rhinorrhea, or otalgia. Respiratory: Denies cough, wheezing, or hemoptysis. Gastrointestinal: Denies diarrhea, vomiting, constipation, or abdominal pain. Genitourinary: Denies dysuria, frequency, urgency, rash, or flank pain. Musculoskeletal: Denies myalgias, arthralgias, or weakness. Hematologic: Denies abnormal bruising or bleeding. Skin: Denies rash or other lesions. Neurologic: Denies altered mental status, weakness, numbness, or paresthesias. Psychiatric: Denies agitation or psychosis. Physical Examination: Vital Signs: Vitals: 01/03/25 0736 01/03/25 0900 01/03/25 1027 01/03/25 1149 BP: 112/83 122/74 113/82 Pulse: 87 94 84 Resp: 18 18 18 Temp: 36.5 ??C (97.7 ??F) 36.6 ??C (97.9 ??F) TempSrc: Tympanic Tympanic SpO2: 98% 95% Weight: Height: BMI: Body mass index is 25.74 kg/m??. General Appearance: No acute distress, in mild discomfort due to respiratory distress Neurologic: Alert, awake, and oriented, normal affect. Eyes: No conjunctival pallor, xanthelasma, or arcus senilis. Pupils equal. ENT: Normal dentition, no pallor/cyanosis/inflammation of the oral mucosa. Neck: No JVD or hepatojugular reflux. No enlargement of the thyroid. Carotid pulse 2+ bilaterally. No carotid bruits. Cardiovascular: Irregular Respiratory: CTA B/L Musculoskeletal: Normal curvature of the spine without kyphosis or scoliosis. Normal gait. Extremities/Skin: no edema Relevant Testing: EKG: Echo: - Rhythm is atrial fibrillation - LV is normal in size - Mildly reduced LV systolic function - EF is estimated to 40 to 45% - Diffuse hypokinesis present with some regional variation-especially of the septum - Normal RV systolic function - Left atrium is mildly dilated - Right atrium is mildly dilated - Mild to moderate aortic stenosis-peak and mean gradients are 33 mmHg and 21 mmHg respectively with an area of 1.1 cm?? - Trace aortic valve regurgitation - Moderate mitral valve regurgitation - Trace tricuspid valve regurgitation - RVSP calculated at 32 mmHg no pericardial effusion present - IVC is normal Other Testing: IMPRESSION: 1. Qualitative Findings: The myocardial perfusion images reveal no evidence of ischemia or infarction. Mild inferior wall thinning is likely accounted for by diaphragmatic attenuation artifact. 2. There is diffuse hypokinesis, but the LVEF could not be accurately assessed due to significant R-R variability. 3. Stress EKG findings were interpreted by cardiology and are reported separately. Please refer to that report in Epic. Labs: Lab Results Component Value Date CHOL 108 2024 Lab Results Component Value Date HDL 44 2024 No results found for: LDLCALC Lab Results Component Value Date TRIG 72 2024 Lab Results Component Value Date CHOLHDL 2.5 (L) 2024 WBC Date Value Ref Range Status 01/02/2025 7.19 4.00 - 11.00 K/uL Final HGB Date Value Ref Range Status 01/02/2025 15.2 13.5 - 17.5 g/dL Final HCT Date Value Ref Range Status 01/02/2025 46.8 41.0 - 53.0 % Final Lab Results Component Value Date NA 138 01/02/2025 K 4.4 01/02/2025 CL 101 01/02/2025 CO2 26 01/02/2025 BUN 16 01/02/2025 CRE 0.90 01/02/2025 GLU 101 (H) 01/02/2025 CA 8.2 (L) 01/02/2025 GFR 94 01/02/2025 ANION 15 01/02/2025 Assessment: 63 y.o. male with past medical history of hypertension presenting with shortness of breath and new onset A-fib. Cardiology consulted for A-fib and possible heart failure exacerbation. Plan: Fibrillation/heart failure exacerbation - Patient with dyspnea on exertion worsening over the past week-significantly improved - EF on bedside echo 20%---> 40-45% on recent echo, thus likely tachycardia induced CM - ECG-A-fib, ventricular response of 141 bpm, possible anterior infarct, [id number] Jogre-fib on telemetry- but rate controlled - Patient unable to tolerate metoprolol tartrate due to Raynaud's phenomena - Continue Lasix 40mg oral daily - continue low-dose Entresto and spironolactone - continue coreg 12.5mg bid - PBS0CG4-ADCc score of at least 3 - Will start patient on Eliquis 5 mg twice daily - I previously had a discussion with the patient regarding anticoagulation-risks explained including those of bleeding-hematuria, melena, hematochezia, hemoptysis, arthralgias, intracranial hemorrhage versus benefits of those of stroke prevention given patient is high risk given [id number] 2 score - Patient agreeable with commencing anticoagulation - Ischemic workup needed prior to discharge---> nuclear stress test--> negative for ischemia - no need for life vest - Strict I's O's - Keep potassium above 4 and magnesium above 2 - Daily weights - Continue monitor on telemetry Thank you for allowing us to participate in the care of this patient. Will continue to follow throughout the patient is in house. Please call any questions or concerns. Electronically signed by: David Barrett MD [facility] 01/03/2025 documented in this encounter H&P Notes * Clarissa Bush NP - 12/30/2024 6:27 PM EST HOSPITALIST ADMINISTRATIVE JOB TITLES ADMIT NOTE ? Patient: Hector Gonzalez : 1960 PCP: Renny Burton MD Date of Admission: 12/30/2024 Attending Provider: Marv Soares MD History provided by: the patient Chief Complaint/Reason for Admission: Dyspnea edema History of Present Illness: This is a 63-year-old male with past medical history of ADD hypertension hyperlipidemia regular alcohol use and smoking who presented to [facility] with about a weeks worth of symptoms. Patient states he has been noticing shortness of breath, at first thought he might be coming down with a cold. His shortness of breath was present at first with activity and has progressed to being present at bedtime andwith lying flat, he has also noticed the onset of lower extremity edema which is completely new. He denies any fever or shaking chills, no cold-like symptoms. He has not had any chest pain or palpitations. The patient has not had a significant cough or body ache. He denies abdominal pain, nausea, vomiting, diarrhea although did have a decreased appetite, denies any dysuria or bleeding. Denies falls or head trauma. Patient was recently started on lisinopril for hypertension, does take medication for ADD's but that is not new. He does smoke regularly and alcohol use is fairly consistent although varies in amount, he will sometimes drink up to a pint of vodka a day that sometimes just a few beers. Denies any history of DTs seizures tremors or any severe withdrawal symptoms. ED Course: Bedside echocardiogram showed a reduced ejection fraction, chest x- ray showed small bilateral pleural effusions, proBNP was elevated at 2879, troponins in the 30s to 40s with no significant elevations, EKG showed A-fib with RVR rate 130s, questionable evidence of old infarct, patient didhave a transaminitis with an AST of 95 and ALT of 116. In the emergency department cardiology was consulted he received a dose of metoprolol and had some blue fingers and toes from this, Raynaud's phenomenon, optometric aide recommended digoxin loading Medical History: PMH PSH Patient Active Problem List Diagnosis Atrial fibrillation with RVR Alcohol abuse Attention deficit hyperactivity disorder (ADHD), predominantly inattentive type Hyperlipidemia Heart failure Hyponatremia Past Medical History: Diagnosis Date ADD (attention deficit disorder) Hypertensive disorder No past surgical history on file. 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 lisinopril (PRINIVIL,ZESTRIL) 10 MG tablet Sig: Take 1 tablet by mouth every morning. Facility-Administered Medications: None Allergies No Known Allergies Review of Systems: Review of Systems Except as above, comprehensive review of systems were performed and are negative Objective: Vitals: Vital signs with range T Temp Min: 35.9 ??C (96.6 ??F) Max: 36.4 ??C (97.5 ??F) P [109-142] 132 BP (111-168)/(84-149) 113/93 RR Respiratory Rate: [20-26] 24 SpO2 98 % O2 Flow Rate (L/min): -- FiO2 -- 90.7 kg (200 lb) Physical Exam: Gen: Alert and oriented x 3, cooperative at bedside HEENT: PERRLA EOMI, tongue midline speech clear head atraumatic CV: S1-S2 irregularly irregular heart rate around 130 no loud murmurs Neck: Supple, JVD is present Pulm: Diminished bilaterally Abd: Soft nontender positive bowel sounds Ext: Moderate edema warm and well-perfused Neuro: No tremor MSK: Independently moving on the stretcher Skin: Warm dry intact no jaundice Labs: CBC: Lab Results Component Value Date/Time WBC 8.14 12/30/2024 1140 RBC 4.73 12/30/2024 1140 HGB 14.6 12/30/2024 1140 HCT 44.2 12/30/2024 1140 MCH 30.9 12/30/2024 1140 MCV 93.4 12/30/2024 1140 PLT 237 12/30/2024 1140 RDW 13.2 12/30/2024 1140 BMP: Lab Results Component Value Date/Time NA 128 (L) 12/30/2024 1140 K 5.1 12/30/2024 1140 CL 91 (L) 12/30/2024 1140 CO2 22 12/30/2024 1140 BUN 23 (H) 12/30/2024 1140 CRE 0.90 12/30/2024 1140 CA 8.8 12/30/2024 1140 GLU 146 (H) 12/30/2024 1140 Coagulation: Cardiac markers: Lab Results Component Value Date/Time TROPTHS 48 (H) 12/30/2024 1524 LFTs: Lab Results Component Value Date/Time ALB 4.0 12/30/2024 1140 ALKP 147 (H) 12/30/2024 1140 TP 6.4 (L) 12/30/2024 1140 SGPT 116 (H) 12/30/2024 1140 SGOT 95 (H) 12/30/2024 1140 DBILI 0.3 12/30/2024 1140 TBILI 0.6 12/30/2024 1140 ABGs: : Estimated Creatinine Clearance: 90 mL/min (based on SCr of 0.9 mg/dL). Diagnostics:XR Chest Portable Result Date: 12/30/2024 XR CHEST PORTABLE Referring clinician's provided indication for this examination in Epic: Dyspnea (Shortness of Breath) COMPARISON: None FINDINGS: Devices/Tubes/Lines: None. Lungs: Bibasilar atelectasis. No focal consolidation or pulmonary edema. Pleura: Small bilateral pleural effusions. No pneumothorax. Heart/Mediastinum: Normal heart and mediastinum. Bones/Soft Tissues: No significant abnormality. Small bilateral pleural effusions. Assessment & Plan: Presented with new AFib RVR, give BB and became cyanotic in toes... Bedside echo ,EF about 30%, Cards seen in ER, rec load with Dig for HR control and admit . Assessment & Plan Atrial fibrillation with RVR Patient presented with A-fib RVR also in decompensated heart failure with volume overload orthopneaand edema. Patient thinks the symptoms have been going on for about a week but cannot be certain Heart rate noted to be in the 140s on admission, A-fib RVR. Blood pressure has been stable no significant hypotension, afebrile in the ED without hypoxia Patient does have significant risk factors of history of hypertension, hyperlipidemia and also alcohol abuse denies recent fever chills or acute illnesses Cardiology consult appreciated, patient apparently had side effect of cyanosis of the hands and feet after given metoprolol, at bedside, echocardiogram was done showing an EF of around 30%, avoid calcium channel gene, optometric aide recommended digoxin loading which we will continue overnight EKG showed possible anterior infarct age indeterminate Plan will institute recommendations as per cardiology, order formal echocardiogram, radiation monitor, continue digoxin, radiation monitor, check labs including TSH, electrolytes I will start anticoagulation, patient has normal platelet count normal CBC and no symptoms of bleeding, discussed with my attending physician, we will need to look at valvular function and echo is pending CHADS-VASc = 3 (3.2% risk of stroke per year) Congestive heart failure (1 point) Hypertension (1 point) Age 65-74 (1 point) Alcohol abuse This gentleman drinks daily and drinks varying amounts of alcohol including up to a pint of vodka per day or at times just some beers. Last hard alcohol was about a week ago. He is at risk for withdrawal, but given the fact he is never had any severe signs or symptoms of alcohol withdrawal in the past per his own history, no DTs or seizures we will start him on the CIWA scale with Ativan, can escalate to phenobarbital if needed, will replete thiamine multivitamin and folate Social work consult, he is quite motivated to stop Patient does have a mild transaminitis, will check infectious hepatitis serologies and follow closely Heart failure Patient appears to be in heart failure tonight with a bedside ultrasound showing an EF of 30%, chest x-ray shows small bilateral pleural effusions the patient has had symptoms of orthopnea as well asedema. We will order a formal echocardiogram as above, attempt rate control which may be driving decreasedcardiac output, diurese and cardiology has been consulted as above Hyponatremia Presents tonight with a mild hyponatremia, he is on lisinopril which we will hold as he is normotensive and currently receiving digoxin. Will check serum osmolality urine osmolality and urine sodium,follow BMP closely, avoid rapid overcorrection Attention deficit hyperactivity disorder (ADHD), predominantly inattentive type I will hold the patient's stimulant in the setting of A-fib RVR Hyperlipidemia Patient is not on a statin we will check a lipid panel DIET: No diet orders on file PPX: ac obs CODE STATUS: No Order Discussed with I spent a total of 65min. during this clinical encounter of which >50% was devoted to counselingand coordinating care including review of records, pertinent lab data and studies, as well as discussing diagnostic evaluation and work up, planned therapeutic interventions and future disposition ofcare. The patient agrees with the plan of care as described above. Signed: Clarissa Bush NP December 30, 2024 6:27 PM documented in this encounter Consult Notes Only the most recent of 2 notes is shown. * Mary Guardado, [facility] - 01/01/2025 2:20 PM ESTAssociated Order(s): IP CONSULT TO SOCIAL WORK [facility] Social Work Initial Note Hector Gonzalez is a 64 y.o. -speaking male who was admitted on 12/30/2024 with a chief complaint of Atrial fibrillation with RVR. The patient has a past medical history of ADD (attention deficit disorder) and Hypertensive disorder. The patient was referred to social work for CRUZ Advanced Directives No healthcare proxy on file. History of Issue PT is a 64 y/o male with a hx of alcohol abuse who presents with SOB and new onset A-fib. Pt lives in [place] with his and adult child with special needs. Pt has no hx of alcohol withdrawal symptoms and states he has periods of cessation that last one month. Pt states he can drink between a few beers and a pint of vodka, typically driven around his insomnia. Pt states he will drink shotsof vodka to get to sleep, but then feels unwell in the morning and it takes about half a day to feel good again. He states that not feeling well in the morning is the primary motivation to quit alcohol. He states it has been one week since he drank any alcohol. Pt feels his symptoms are not withdrawal related because he's never experienced withdrawal before. Current Status Met with pt at the bedside. His daughter is currently visiting. Pt has been discussing his alcohol use and his sx with his daughter and continues the conversation with this freelance copywriter. Pt alerts this freelance copywriter that I quit I'm not drinking again. He states he has never used any meetings, group or philosophy to stop drinking I just quit cold turkey. Pt is very concerned about what is happening with his heart, and he is having difficulty feeling that alcohol use has anything to do with this, especially one week out. This freelance copywriter reminded him his symptoms did not just begin and it is very possible that his withdrawal sx had an affect on his heart, however, advised him to speak to the doctor or card iologist about it. Offered him resources for continued abstinence. Pt is willing to accept them, but does not feel he needs it. Interview was interrupted by pt needing to be transported down to an echocardiogram. Interventions Met with pt and his daughter. Discussed hx of alcohol use and resources for recovery and abstinence. Pt is willing to accept resources in hand. PASRR Recommendations and Plan Expected d/c to home. Pt plans to abstain from alcohol. Contacts documented in this encounter Nursing Notes * Shante Cedeno RN - 01/03/2025 9:54 AM EST Pt alert and oriented, afib on tele monitor HR 80 - 110s while occasionally hitting 130s w/ ambulation, pt reports asymptomatic. IND in room w/ steady gait noted. CIWA scores low, no s/s of withdrawal. Educational papers and verbal information given to pt on new cardiac medications prior to discharge. A pleasure to care for. documented in this encounter ED Notes * Meghna Castellano RN - 12/30/2024 6:53 PM EST ED Admission Nursing Note ED RN Handoff (All Zhang Below Must Be Completed) Reason for Admission: SOB Diagnosis: Afib RVR, acute heart failure Type of Admission: []MedSurg [x]Telemetry []Remote Room Considerations/Precautions (ex.fever, cough, diarrhea,or any infectious process): NA Community Liaison: [x]Yes []No If yes, Cardiac Rhythm: afib Reason for Community Liaison: Current Mental Status: AOx4 Current Ambulation Status: unknown in ED IV Access: [x]Yes []No Field IV Present: []Yes [x]No History of Violence: []Yes [x]No []Unknown Fall Risk: [x]Yes []No Patient belongings inventoried []Yes [x]No Patient belongings stored in the Security closet []Yes [x]No ED Nurse Phone Number: [phone] ED Summary of Care: EKG, CXR, labs, bedside US, cardiology consult, medicated per JAN. Trops elevating, Pro BNP elevated. CIWA 7. Pt had adverse reaction to metoprolol- developed Reynauds. Submitted by: Meghna Castellano RN * Meghna Castellano RN - 12/30/2024 2:05 PM EST ED Nursing Progress Note optometric aide at bedside doing US. * Meghna Castellano RN - 12/30/2024 10:58 AM EST ED Nursing Progress Note Pt reports no hx of afib. Pt reports 10 years ago his BP machine told him he had an irregular HR, and he wore a heart monitor after that which did not show afib. * Jackie Villegas RN - 12/30/2024 9:41 AM EST Ambulated to triage c/o SOB x1 week, denies any cough, fevers or any other respiratory symptoms. Manager Diesel/ox4, speaking full sentences, tachypneac, reports dyspnea on exertion. HR in 140s new onset Afib.Bilateral lower extremitie edema noted. EKG done, read by Dr. Mcleod. PT roomed to 16 Report to Meghna BELL * Harinder Mcleod MD - 12/30/2024 9:26 AM EST Chief Complaint Chief Complaint Patient presents with Shortness of Breath History of Present Illness The patient, Hector Gonzalez,is a 63 y.o. male who presents for evaluation of Shortness of Breath 63-year-old male, history of hypertension, here today for evaluation of shortness of breath. Patient has been feeling short of breath for about a week. For the last 3 days, patient has been unable tosleep due to shortness of breath when he lies down. Patient notes increased leg swelling starting today. Patient denies chest pain. Denies fever. Denies cough. Denies muscle aches. Denies urinary symptoms. Patient was recently started on lisinopril. Patient does smoke cigars, although has not smoked for the last 2 days. Patient drinks daily, states he may have a few beers or may have a pint of vodka depending on the day. Unless otherwise specified, I have reviewed and agree with the triage and nursing notes. ROS A ten point review of systems was negative except what was noted in the HPI. Review of Systems Past Medical History No past medical history on file. Past Surgical History No past surgical history on file. Home Medications Prior to Admission medications Medication Sig dextroamphetamine sulfate 10 MG tablet 10 mg, Oral, Daily lisinopril (PRINIVIL,ZESTRIL) 10 MG tablet 1 tablet, Oral, Every morning Allergies No Known Allergies Social and Family History Social History Tobacco Use Smoking status: Not on file Smokeless tobacco: Not on file Substance Use Topics Alcohol use: Not on file Social History Substance and Sexual Activity Drug Use Not on file No family history on file. Physical Exam Vital Signs: ED Triage Vitals [12/30/24 0943] Encounter Vitals Group BP 135/84 Systolic BP Percentile Diastolic BP Percentile Heart Rate (!) 140 Respiratory Rate 24 Temperature 35.9 ??C (96.6 ??F) Temp Source Tympanic SpO2 100 % Weight 200 lb Height 6' Head Circumference Peak Flow Pain Score Pain Loc Pain Education Exclude from Growth Chart Physical Exam GENERAL APPEARANCE: Well developed, well nourished, alert and cooperative, in no acute distress. HEAD: normocephalic. Atraumatic EYES: PERRL, EOMI. Vision is grossly intact. EARS: Hearing grossly intact. External exam normal. NOSE: Midline, No nasal discharge. NECK: Neck supple, trachea midline. LUNGS: Clear to auscultation bilaterally without rales, rhonchi, wheezing or diminished breath sounds. CARDIAC: Irregularly irregular. Tachycardic. No murmurs Rubs or gallops ABDOMEN: Soft, nontender, nondistended, No guarding or rebound. No masses. BACK: No spinal tenderness. No CVA tenderness. EXTREMITIES: 2+ pitting edema bilaterally. NEUROLOGICAL: AAOX3. Normal strength and sensation. SKIN: Skin normal color, texture and turgor with no lesions or eruptions. Laboratory Testing Results for orders placed or performed during the hospital encounter of 12/30/24 ECG 12-LEAD Result Value Ref Range Ventricular Rate EKG/MIN 141 BPM Atrial Rate 85 BPM QRS Duration 90 ms QT Interval 328 ms QTC Interval 502 ms R Wave [place] -29 degrees T Wave [place] 48 degrees Troponin Specimen: Blood Result Value Ref Range Troponin-T, HS Gen5 48 (H) 0 - 14 ng/L Troponin Specimen: Blood Result Value Ref Range Troponin-T, HS Gen5 42 (H) 0 - 14 ng/L Ethanol, blood Specimen: Blood Result Value Ref Range ETHANOL <10 <10 mg/dL NT-proBNP Specimen: Blood Result Value Ref Range NT-PROBNP 2,879 (H) 0 - 125 pg/mL Troponin Specimen: Blood Result Value Ref Range Troponin-T, HS Gen5 38 (H) 0 - 14 ng/L Magnesium Specimen: Blood Result Value Ref Range MAGNESIUM 1.6 1.6 - 2.6 mg/dL LFTs (hepatic panel) Specimen: Blood Result Value Ref Range ALKALINE PHOSPHATASE 147 (H) 39 - 117 U/L TOTAL BILIRUBIN 0.6 0.0 - 1.2 mg/dL DIRECT BILIRUBIN 0.3 0 - 0.3 mg/dL Bilirubin (Indirect) 0.3 0 - 1.5 mg/dL AST 95 (H) 0 - 37 U/L ALT 116 (H) 0 - 40 U/L TOTAL PROTEIN 6.4 (L) 6.5 - 8.0 g/dL ALBUMIN 4.0 3.9 - 4.8 g/dL GLOBULIN 2.4 1 - 4.8 g/dL A/G Ratio 1.67 1.00 - 4.80 RATIO Basic metabolic panel Specimen: Blood Result Value Ref Range SODIUM 128 (L) 133 - 146 mmol/L CHLORIDE 91 (L) 96 - 108 mmol/L POTASSIUM 5.1 3.3 - 5.1 mmol/L CO2 22 21 - 35 mmol/L BUN 23 (H) 6 - 19 mg/dL CREATININE 0.90 0.5 - 1.5 mg/dL GLUCOSE 146 (H) 70 - 99 mg/dL CALCIUM 8.8 8.4 - 10.3 mg/dL EGFR 95 >59 mL/min/1.73m2 ANION GAP 20 10 - 20 mmol/L CBC and differential Specimen: Blood Result Value Ref Range WBC 8.14 4.00 - 11.00 K/uL RBC 4.73 4.50 - 5.90 M/uL HGB 14.6 13.5 - 17.5 g/dL HCT 44.2 41.0 - 53.0 % PLT 237 150 - 450 K/uL MCV 93.4 80.0 - 100.0 fL MCH 30.9 27.0 - 31.0 pg MCHC 33.0 32.0 - 36.0 g/dL RDW 13.2 11.5 - 14.5 % MPV 11.0 8.4 - 12.0 fL NRBC 0.00 0.00 /100 WBCs ABSOLUTE NRBC 0.00 0.00 K/uL DIFF METHOD Auto NEUTS 72.8 48.0 - 76.0 % LYMPHS 15.8 (L) 18.0 - 41.0 % MONOS 10.7 4.0 - 11.0 % EOS 0.2 0.0 - 5.0 % BASOS 0.4 0.0 - 1.5 % Granulocytes, immature (%) 0.1 0.0 - 0.9 % ABSOLUTE NEUTS 5.92 1.92 - 7.60 K/uL ABSOLUTE LYMPHS 1.29 0.72 - 4.10 K/uL ABSOLUTE MONOS 0.87 0.16 - 1.10 K/uL ABSOLUTE EOS 0.02 0.00 - 0.50 K/uL ABSOLUTE BASOS 0.03 0.00 - 0.15 K/uL Granulocytes, immature 0.01 0.00 - 0.09 K/uL Radiology Testing XR Chest Portable Final Result Small bilateral pleural effusions. Medication from 12/30/2024 0926 to 12/30/2024 1613 Date/Time Order Dose Route Action Action by Comments 12/30/2024 1203 EST metoprolol tartrate (LOPRESSOR) injection 5 mg 5 mg Intravenous Given Meghna Castellano RN -- 12/30/2024 1249 EST furosemide (LASIX) injection 20 mg 20 mg Intravenous Given Meghna Castellano RN -- 12/30/2024 1249 EST metoprolol tartrate (LOPRESSOR) IMMEDIATE release tablet 50 mg 50 mg Oral GivenMeghna Castellano RN -- [facility] Assessment and Plan: 63-year-old male here for evaluation of shortness of breath. Patient has 2+ pitting edema. Patient is in new A-fib with RVR. Unclear exactly when A-fib started, suspect it may have been a week ago. Patient is not a candidate for cardioversion for this reason. Will administer metoprolol for rate control. Update: Pt seen by Dr. Barrett from cardiology. Recommends 3rd troponin. Of note, patient had cyanosis of hands and feet after metoporolol. He performed bedside echo, pt has poor squeeze. Would not give diltiazem. Recommends deferring further metoprolol in favor of digoxin. Pt was evaluated by hospitalist, Dr. Owusu. Category 1: Tests, Studies or Independent Historians: Independent Historian: Independent history was obtained by spouse/partner. at bedside. Category 2 and 3: Independent Interpretation of Tests, Consideration of Tests, or External Discussion of Results: Labs: Laboratory studies were interpreted. ECG: EKG studies were independently interpreted. Rate: 141 Rhythm: atrial fibrillation Other Finding(s): No prior Risks of Complications, Morbidity, or Mortality: Risks: Risks and benefits of admission to the hospital discussed with patient. Critical Care: Total Critical Care Time (minutes) 35 is exclusive of otherwise billable procedures. Services: Tachydysrhythmia Indications: EKG showed atrial fibrillation with rapid ventricular rate, concerning for a malignant, potentially life-threatening tachyarrhythmia. Interventions: Mateus blockade was administered, to reduce heart rate and the associated myocardial oxygen demand. Course: Over the ED course, the patient???s heart rate responded to therapy. Clinical Impressions as of 12/30/24 1613 Atrial fibrillation with RVR Acute heart failure, unspecified heart failure type Critical Care Time: 35 minutes Clinical Impression Diagnosis Description Comment Final diagnoses Atrial fibrillation with RVR Atrial fibrillation with RVR -- Acute heart failure, unspecified heart failure type Acute heart failure, unspecified heart failure type -- Disposition: signed out Harinder Mcleod MD 12/30/24 1613 documented in this encounter Miscellaneous Notes Only the most recent note of each type is shown. * Hospital Course - April Martinez DO - 01/03/2025 11:43 AM EST Atrial fibrillation with RVR Patient presented with A-fib RVR and decompensated heart failure. He noticed increased SOB, orthopnea and edema about a week ago. 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 After a time his symptoms resolved spontaneously and patient was loaded with digoxin. He was started on Eliquis for [id number] score of 3. He was started on coreg and he tolerated it well, no digital vasoconstriction. His dose was titrated fro rate control and he is currently on 12.5 BID. He remains on Digoxin 0.125mg. Dig level 1. The plan is for cardioversion after 4 weeks of Eliquis. Acute systolic heart failure He had a bedside echo that showed an EF of around 30%. This was followed up by an official echo (after diuresis and better rate control) and EF was 45%. Likely tachycardia mediated due to A-fib from EtOH use Spironolactone and Entresto were initiated on admission. Symptoms improved with diuresis, he is currently -6 L He has a stress test that showed no ischemia/infarction. -Lisinopril stopped -Entrestos and spironolactone continued at d/c. -Lasix 20 mg PO, titrate as needed to maintain dry weight f 189lbs. Alcohol abuse This gentleman drinks daily and drinks varying amounts of alcohol including up to a pint of vodka per day or at times just some beers. Last hard alcohol was about a week ago. He is at risk for withdrawal, but given the fact he is never had any severe signs or symptoms of alcohol withdrawal in the past per his own history, no DTs or seizures we will start him on the CIWA scale with Ativan, can escalate to phenobarbital if needed, will replete thiamine multivitamin and folate Social work consult, he is quite motivated to stop and states that he would like to stop cold turkey. He has had no signs or symptoms of alcohol withdrawal He will look into o/p resources like the [facility]. Alcoholic hepatitis Patient does have a mild transaminitis, LFTs slightly increased today compared to yesterday infectious hepatitis serologies for hepatitis B and C are nonreactive. - Repeat LFTs in a.m. to continue to trend. - Abstain from alcohol use Hyponatremia Resolved. Presents tonight with a mild hyponatremia with sodium of 128. Hyponatremia is likely multifactorialincluding lisinopril, use of beer and CHF. Sodium has corrected to 138. Attention deficit hyperactivity disorder (ADHD), predominantly inattentive type patient's dextroamphetamine was held in the setting of A-fib with RVR. Patient remained stable. Hyperlipidemia Patient is not on a statin, lipid panel shows cholesterol of 108 with LDL of 50. No indication for statin at this time. * Plan of Care - Josette Deng RN - 01/03/2025 6:03 AM EST Patient not ready for DC at this time. Further diureses planned. Stress test results pending. No s/s of bleeding noted. BP and HR stable with HR improving from the 100s to the 70s overnight. No edema noted. Labs for the AM still pending. * Assessment & Plan Note - April Martinez DO - 01/02/2025 3:56 PM ESTOnly the most recent of 24 notes of type Assessment & Plan Note is shown. Associated Problem(s): Atrial fibrillation with RVR Patient presented with A-fib RVR and decompensated heart failure. He noticed increased SOB, orthopnea and edema about a week ago. 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 After a time his symptoms resolved spontaneously and patient was loaded with digoxin. He had a bedside echo that showed an EF of around 30%. Patient started on anticoagulation given [id number] score of 3. He tolerated coreg 3.125mg -Will continue with digoxin 0.125 mg daily -Continue to monitor on telemetry. -Follow-up formal echocardiogram. - Titrate Coreg for rate control -Continue apixaban 5 mg twice daily -rpt dig level documented in this encounter Plan of Treatment Upcoming Encounters Date Type Department Care Team (Late st Contact Info) Description 02/02/2025 2:40 PM EST Office Visit [facility] [address] [place] [address] [address] [place] [address] David Barrett MD [address] [place] [id number] [email or web address] documented as of this encounter Procedures Procedure Name Priority Date/Time Associated Diagnosis Comments DIGOXIN LEVEL Routine 01/03/2025 7:07 AM EST NC MYOCARDIAL PERFUSION PHARMACOLOGIC STRESS MULTIPLE Routine 01/02/2025 2:20 PM EST Acute heart failure, unspecified heart failure type NC100 (TECH ORDER ONLY) NC STRESS TEST WITH NUCLEAR IMAGING Routine 01/02/2025 12:13 PM EST Acute heart failure, unspecified heart failure type CBC Routine 01/02/2025 5:17 AM EST BASIC METABOLIC PANEL Routine 01/02/2025 5:17 AM EST TTE COMPREHENSIVE Routine 01/01/2025 2:4 7 PM EST Abnormal electrocardiogram (ECG) (EKG) LFTS (HEPATIC PANEL) Routine 01/01/2025 5:33 AM EST CBC Routine 01/01/2025 5:33 AM EST BASIC METABOLIC PANEL Routine 01/01/2025 5:33 AM EST SODIUM, RANDOM URINE Routine 2024 8:00 AM EST OSMOLALITY (URINE, RANDOM) Routine 2024 8:00 AM EST COMPREHENSIVE METABOLIC PANEL Routine 2024 6:07 AM EST HEPATITIS C ANTIBODY, QUALITATIVE Routine 2024 6:07 AM EST HEPATITIS B CORE ANTIBODY, TOTAL Routine 2024 6:07 AM EST HEPATITIS B SURFACE ANTIGEN Routine 2024 6:07 AM EST CBC AND DIFFERENTIAL Routine 2024 6:07 AM EST TSH Routine 2024 6:07 AM EST PHOSPHORUS Routine 2024 6:07 AM EST OSMOLALITY, SERUM Routine 2024 6:0 7 AM EST MAGNESIUM Routine 2024 6:07 AM EST DIGOXIN LEVEL Routine 2024 6:07 AM EST LIPID PANEL Routine 2024 6:07 AM EST TROPONIN STAT 12/30/2024 3:24 PM EST TROPONIN STAT 12/30/2024 12:41 PM EST XR CHEST PORTABLE Routine 12/30/2024 11: 55 AM EST ETHANOL, BLOOD STAT 12/30/2024 11:40 AM EST LFTS (HEPATIC PANEL) STAT 12/30/2024 11:40 AM EST CBC AND DIFFERENTIAL STAT 12/30/2024 11:40 AM EST TROPONIN STAT 12/30/2024 11:40 AM EST NT-PROBNP STAT 12/30/2024 11:40 AM EST MAGNESIUM STAT 12/30/2024 11:40 AM EST BASIC METABOLIC PANEL STAT 12/30/2024 11:40 AM EST ECG 12-LEAD STAT 12/30/2024 9:49 AM EST documented in this encounter Results * Digoxin level (01/03/2025 7:07 AM EST) DIGOXIN 1.0 0.9 - 2.0 ng/mL [facility] Blood 01/03/2025 7:07 AM EST 01/03/2025 7:19 AM EST April Martinez DO LAB BLOOD ORDERABL ES [facility] [address] [place] [address] * NC Myocardial Perfusion Pharmacologic Stress Multiple (01/02/2025 2:20 PM EST) Anatomical Region Laterality Modality Heart, Vascular Nuclear Medicine 01/02/2025 2:30 PM EST Impressions 01/02/2025 2:37 PM EST 1. ??Qualitative Findings: The myocardial perfusion images reveal no evidence of ischemia or infarction. Mild inferior wall thinning is likely accounted for by diaphragmatic attenuation artifact. 2. ??There is diffuse hypokinesis, but the LVEF could not be accurately assessed due to significant R-R variability. 3. ??Stress EKG findings were interpreted by cardiology and are reported separately. Please refer to that report in [facility]. Narrative 01/02/2025 2:37 PM EST Dictate modality (CT, fluoro, IR, MR, ultrasound, or X-Ray) or choose one from the echo NM EXAM: NC MYOCARDIAL PERFUSION PHARMACOLOGIC STRESS MULTIPLE CLINICAL INDICATION: * Dyspnea on exertion (FARRAR). TECHNIQUE: According to standard departmental protocol, the patient was injected with 10.9 mCi of TC-99M Sestamibi IV at rest and ungated SPECT myocardial images were obtained. Subsequently, a stress test was performed and 30.8 mCi of TC-99M Sestamibi was injected at peak stress. After 30 to 60 minutes, gated SPECT images were obtained and assessed for myocardial perfusion and left ventricular function. Stress EKG findings were interpreted by cardiology and are reported separately. Please refer to that report in [facility]. COMPARISON: None. FINDINGS: Imaging Findings Myocardial Perfusion Zone ??Defect/Change Inferior ??Thinning. Perfusion: Regional Wall Motion: Diffuse hypokinesis. Ventricular Size and Global Function: Left ventricular contractile function cannot be accurately assessed due to variable R-R intervals. Normal left ventricular size. TID Stress 1.02 TID greater than 1.2-1.25 is generally considered abnormal. Incidental Findings: Artifacts: Patient motion. Diaphragm. Image Quality: Good. Procedure Note Cresencio Hamilton MD - 01/02/2025 Dictate modality (CT, fluoro, IR, MR, ultrasound, or X-Ray) or choose onefrom the echo NM EXAM: NC MYOCARDIAL PERFUSION PHARMACOLOGIC STRESSMULTIPLE CLINICAL INDICATION: * Dyspnea on exertion (FARRAR). TECHNIQUE: According to standard departmental protocol, the patient wasinjected with 10.9 mCi of TC-99M Sestamibi IV at rest and ungated SPECTmyocardial images were obtained. Subsequently, a stress test was performedand 30.8 mCi of TC-99M Sestamibi was injected at peak stress. After 30 to60 minutes, gated SPECT images were obtained and assessed for myocardialperfusion and left ventricular function. Stress EKG findings were interpreted by cardiology and are reportedseparately. Please refer to that report in [facility]. COMPARISON: None. FINDINGS: Imaging Findings Myocardial Perfusion Zone Defect/Change Inferior Thinning. Perfusion: Regional Wall Motion: Diffuse hypokinesis. Ventricular Size and Global Function: Left ventricular contractilefunction cannot be accurately assessed due to variable R-R intervals.Normal left ventricular size. TID Stress 1.02 TID greater than 1.2-1.25 is generally considered abnormal. Incidental Findings: Artifacts: Patient motion. Diaphragm. Image Quality: Good. IMPRESSION: 1. Qualitative Findings: The myocardial perfusion images reveal noevidence of ischemia or infarction. Mild inferior wall thinning is likelyaccounted for by diaphragmatic attenuation artifact. 2. There is diffuse hypokinesis, but the LVEF could not be accuratelyassessed due to significant R-R variability. 3. Stress EKG findings were interpreted by cardiology and are reportedseparately. Please refer to that report in [facility]. David Barrett MD CV NM CARDIAC * NC Stress Result for Nuclear Stress Test (01/02/2025 12:13 PM EST) Max Predicted Heart Rate 154 bpm [facility] Max BP Systolic 130 mmHg [facility] Max BP Diastolic 80 mmHg [facility] Max HR 164 BPM [facility] Resting HR 111 BPM [facility] Resting BP Systolic 122 mmHg [facility] Resting BP Diastolic 80 mmHg [facility] Peak METS 1.0 METS [facility] Peak HR 117 BPM [facility] Peak BP Systolic 130 mmHg [facility] Peak BP Diastolic 80 mmHg [facility] Anatomical Region Laterality Modality Heart Other 01/02/2025 10:4 3 AM EST 01/02/2025 12:12 PM EST Narrative 01/02/2025 3:27 PM EST Stress Findings The resting heart rate was 111 BPM. The resting BP was 122/80 mmHg. A peak heart rate of 117 BPM was achieved. Peak BP was 130/80 mmHg. 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 Test done as a pharmacologic test due to rapid ventricular rates. 1. EKG - Baseline EKG showed A-fib with RVR, LAD, nonspecific ST-T wave abnormalities. After the injection of Lexiscan, there were no EKG changes that met strict criteria for ischemia. 2. SYMPTOMS - After the injection of Lexiscan, the patient reported some heavy breathing which spontaneously resolved by 2 to 3 minutes into the recovery period. 3. PHYSIOLOGY - Resting HR was 127 bpm. After Lexiscan injection, HR 164 bpm. 4. ARRHYTHMIAS - Atrial fibrillation throughout. Occasional isolated PACs. Conclusion - There were no ischemic EKG changes with pharmacologic testing. Rapid ventricular rates noted throughout testing. Nuclear images pending and will be reported separately. See attached stress report for full details. Kay Sheehan PA-C with Dr. Barrett Response to Stress The patient exercised for minutes and seconds, achieving 1.0 METS at peak exercise. Baseline blood pressure was 122/80 mmHg, and baseline heart rate was 111 bpm. Peak blood pressure was 130/80 mmHg. The patient achieved a peak heart rate of 117 bpm, which is% of their maximum predicted heart rate. Rate pressure product was [id number]. David Barrett MD CV NM CARDIAC * (ABNORMAL) Basic metabolic panel (01/02/2025 5:17 AM EST) SODIUM 138 133 - 146 mmol/L [facility] CHLORIDE 101 96 - 108 mmol/L [facility] POTASSIUM 4.4 3.3 - 5.1 mmol/L [facility] CO2 26 21 - 35 mmol/L [facility] BUN 16 6 - 19 mg/dL [facility] CREATININE 0.90 0.5 - 1.5 mg/dL [facility] GLUCOSE 101(H) 70 - 99 mg/dL [facility] CALCIUM 8.2(L) 8.4 - 10.3 mg/dL [facility] EGFR 94 >59 mL/min/1.7 3m2 [facility] Comment:Estimated glomerular filtration rate calculated using the CKD-EPI refit equation. ANION GAP 15 10 - 20 mmol/L [facility] Blood 01/02/2025 5:17 AM EST 01/02/2025 6:15 AM EST April Martinez DO LAB BLOOD ORDERABL ES Performing Organization Address City/State/[facility] Co de Phone Number [address] [phone] * CBC (01/02/2025 5:17 AM EST) WBC 7.19 4.00 - 11.00 K/uL [facility] RBC 4.98 4.50 - 5.90 M/uL [facility] HGB 15.2 13.5 - 17.5 g/dL [facility] HCT 46.8 41.0 - 53.0 % [facility] PLT 237 150 - 450 K/uL [facility] MCV 94.0 80.0 - 100.0 [facility] MCH 30.5 27.0 - 31.0 pg [facility] MCHC 32.5 32.0 - 36.0 g/dL [facility] RDW 13.3 11.5 - 14.5 % [facility] MPV 10.8 8.4 - 12.0 [facility] NRBC 0.00 0.00 /100 WBCs [facility] ABSOLUTE NRBC 0.00 0.00 K/uL [facility] Blood 01/02/2025 5:17 AM EST 01/02/2025 6:15 AM EST April Martinez DO LAB BLOOD ORDERABL ES [address] [address] * TTE COMPREHENSIVE (01/01/2025 2:47 PM EST) Body Surface Area 2.16 m2 Height 183 cm Weight 94 kg Interventricular Septum Thickness 10 6 - 11 mm Left Ventricle Internal Diameter End Diastole 55 42 - 58 mm Left Ventricle Internal Diameter End Systole 40 <40 mm Left Ventricular Outflow Tract Diameter 21.0 mm LVOT VTI REST 147.0 mm Left Ventricular Outflow Tract Velocity 0.9 m/s Left Ventricular Outflow Tract Gradient at Rest 3 mmHg Left Ventricular Posterior Wall Thickness 11 6 - 11 mm Ejection Fraction 42 50 - 75 Percent Aortic Valve Mean Gradient 21 mmHg Aortic Valve Time Velocity Integral 507.0 mm Aortic Valve Peak Velocity 288.0 cm/s Aortic Valve Peak Gradient 33 mmHg Aortic Sinus Diameter 34 <40 mm Ascending Aorta Diameter 39 <36 mm Tricuspid Valve Peak Velocity 2.7 m/s Raw LV EF% 47 % Relative Wall Thickness 0.40 0.22 - 0.42 Aortic Valve Prosthetic Peak Gradient 33 mmHg Aortic Valve Prosthetic Mean Gradient 21 mmHg Aortic Valve Sinus Index by BSA 16 mm/m2 Aorta Sinus Index by Height 1.86 cm/m Aorta Sinus CSA index by Height 4.96 cm2/m Ascending Aorta Index 18 mm/m2 Asc Aorta CSA Index by Height 6.52 cm2/m Right Ventricle to Right Atrium Pressure Gradient 29 mmHg Right Ventricle Peak Systolic Pressure (Assuming RAP 10) 39 mmHg MGB CV ECHO TV RVSP (ASSUMING RAP OF 5) 34 mmHg RVSP (Exclusive of RAP) 29 mmHg Ascending Aorta Index 18 mm Aortic Sinus Index 16 mm Ascending Aorta Diameter 18 mm Aortic Valve Sinus Index 1 16 20 - 32 mm AO ASC DIAM BSA INDEX 18.06 Right Ventricle Peak Systolic Pressure 32 mmHg Aortic Valve Peak Velocity 33.0 m/s Right Atrium Pressure Estimated 3 mmHg Anatomical Region Laterality Modality Heart Ultrasound Narrative 01/02/2025 12:00 AM EST Images from the original result were not included. - Rhythm is atrial fibrillation - LV is normal in size - Mildly reduced LV systolic function - EF is estimated to 40 to 45% - Diffuse hypokinesis present with some regional variation-especially of the septum - Normal RV systolic function - Left atrium is mildly dilated - Right atrium is mildly dilated - Mild to moderate aortic stenosis-peak and mean gradients are 33 mmHg and 21 mmHg respectively with an area of 1.1 cm?? - Trace aortic valve regurgitation - Moderate mitral valve regurgitation - Trace tricuspid valve regurgitation - RVSP calculated at 32 mmHg no pericardial effusion present - IVC is normal Left Ventricle The left ventricle is normal in size. There is mildly reduced left ventricular systolic function. The LV ejection fraction is 42% (calculated via biplane measurement). There is mild diffuse hypokinesis with regional variation. Right Ventricle The right ventricle is normal in size. There is normal right ventricular systolic function. Left Atrium The left atrium is moderately dilated. Right Atrium The right atrium is moderately dilated. Mitral Valve The mitral valve appears normal without prolapse. There is moderate mitral regurgitation with a posterolaterally eccentrically directed jet. Tricuspid Valve The tricuspid valve appears normal. There is trace tricuspid regurgitation. The RV systolic pressure was calculated at 32 mmHg (using TR peak velocity of 2.7 m/s and assuming an RA pressure of 3 mmHg). Aortic Valve The morphology of the valve cannot be determined (cannot rule out bicuspid valve). There is mild leaflet thickening. There is [id number]-cs-varccmmi aortic stenosis. The peak and mean aortic valve gradients are 33 mmHg and 21 mmHg respectively. The maximal transaortic gradients were obtained in the apical 5 view. The aortic valve area is 1.1 cm2. There is trace aortic regurgitation. The aortic sinuses are normal in size. The ascending aorta is mildly dilated. Pulmonic Valve The pulmonic valve appears normal. There is trace to mild pulmonic regurgitation. Pericardium There is no pericardial effusion. There is a pleural effusion. General Findings The image quality was fair (3). The predominant rhythm during the study was atrial fibrillation. Comparison Findings There are no prior studies for comparison. Clarissa Bush NP CV ECHO ORDERAB LES * (ABNORMAL) LFTs (hepatic panel) (01/01/2025 5:33 AM EST) ALKALINE PHOSPHATASE 116 39 - 117 U/L [facility] TOTAL BILIRUBIN 0.4 0.0 - 1.2 mg/dL [facility] DIRECT BILIRUBIN <0.2 0 - 0.3 mg/dL [facility] Bilirubin (Indirect) NOT CALCULATED 0 - 1.5 mg/dL [facility] AST 96(H) 0 - 37 U/L [facility] ALT 142(H) 0 - 40 U/L [facility] TOTAL PROTEIN 5.3(L) 6.5 - 8.0 g/dL [facility] ALBUMIN 3.2(L) 3.9 - 4.8 g/dL [facility] GLOBULIN 2.1 1 - 4.8 g/dL [facility] A/G Ratio 1.52 1.00 - 4.80 RATIO [facility] Blood 01/01/2025 5:33 AM EST 01/01/2025 6:19 AM EST Onelia Guy MD LAB BLOOD ORDERABLES Performing Organization Address City/State/[facility] Co de Phone Number [address] [address] * CBC (01/01/2025 5:33 AM EST) WBC 8.18 4.00 - 11.00 K/uL [facility] RBC 4.86 4.50 - 5.90 M/uL [facility] HGB 15.0 13.5 - 17.5 g/dL [facility] HCT 45.2 41.0 - 53.0 % [facility] PLT 230 150 - 450 K/uL [facility] MCV 93.0 80.0 - 100.0 fL [facility] MCH 30.9 27.0 - 31.0 pg [facility] MCHC 33.2 32.0 - 36.0 g/dL [facility] RDW 13.2 11.5 - 14.5 % [facility] MPV 11.0 8.4 - 12.0 fL [facility] NRBC 0.00 0.00 /100 WBCs [facility] ABSOLUTE NRBC 0.00 0.00 K/uL [facility] Blood 01/01/2025 5:33 AM EST 01/01/2025 6:19 AM EST Onelia Guy MD LAB BLOOD ORDERABLES [address] [address] * (ABNORMAL) Basic metabolic panel (01/01/2025 5:33 AM EST) SODIUM 136 133 - 146 mmol/L [facility] CHLORIDE 100 96 - 108 mmol/L [facility] POTASSIUM 4.0 3.3 - 5.1 mmol/L [facility] CO2 25 21 - 35 mmol/L [facility] BUN 17 6 - 19 mg/dL [facility] CREATININE 0.80 0.5 - 1.5 mg/dL [facility] GLUCOSE 107(H) 70 - 99 mg/dL [facility] CALCIUM 8.3(L) 8.4 - 10.3 mg/dL [facility] EGFR 98 >59 mL/min/1.7 3m2 [facility] Comment:Estimated glomerular filtration rate calculated using the CKD-EPI refit equation. ANION GAP 15 10 - 20 mmol/L [facility] Blood 01/01/2025 5:33 AM EST 01/01/2025 6:19 AM EST Onelia Guy MD LAB BLOOD ORDERABLES [address] [address] * Sodium, random urine (2024 8:00 AM EST) URINE SODIUM <20 mmol/L [facility] Urine (Urine) 2024 8:0 0 AM EST 2024 10:30 AM EST Clarissa Bush ADMINISTRATIVE JOB [employer]ITLES URINE ORDERABLE S [address] [address] * Osmolality, Random Urine (2024 8:00 AM EST) URINE OSMOLALITY 249 mOsm/kg water [facility] Urine (Urine) 2024 8:0 0 AM EST 2024 10:30 AM EST Clarissa Lyn Rachelle ADMINISTRATIVE JOB TITLES URINE ORDERABLE S Performing Organization Address [facility] Co de Phone Number [address] [address] * Digoxin level (2024 6:07 AM EST) DIGOXIN 1.4 0.9 - 2.0 ng/mL [facility] 2024 6:07 AM EST 2024 6:13 AM EST Clarissa Farrisperance ADMINISTRATIVE JOB TITLES LAB BLOOD ORDER MALLY Performing Organization Address [facility] de Phone Number [address] [address] * (ABNORMAL) Lipid panel (2024 6:07 AM EST) HDL 44 mg/dL [facility] Comment: ? Interpretation <40 mg/dL: Low HDL cholesterol (major risk factor for CHD) Greater than or equal to 60 mg/dL: High HDL cholesterol ( negative risk factor for CHD) HDL - cholesterol is affected by a number of factors, e.g. smoking, excerise, hormones, sex and age. CHOLESTEROL 108 0 - 240 mg/dL [facility] TRIGLYCERIDES 72 30 - 160 mg/dL [facility] LDL 50 50 - 129 mg/dL [facility] Comment: LDL levels in terms of risk for coronary heart disease: <100 mg/dL: Optimal 100-129 mg/dL: Near or above optimal 130-159 mg/dL: Borderline high 160-189 mg/dL: High >190 mg/dL: Very High CARDIAC RISK RATIO 2.5(L) 3.4 - 5.0 [facility] Blood 2024 6:07 AM EST 2024 6:13 AM EST Clarissa Ferminance ADMINISTRATIVE JOB TITLES LAB BLOOD ORDER MALLY [address] [address] * Hepatitis B core antibody, total (2024 6:07 AM EST) HEP B CORE AB, TOT NON-REACTI VE NON-REACTI VE [facility] Blood 2024 6:07 AM EST 2024 6:13 AM EST Clarissa Bush ADMINISTRATIVE J[employer] TITLES LAB BLOOD ORDER MALLY Performing Organization Address City/[facility]/ZIP Co de Phone Number [address] [address] * Hepatitis B surface antigen (2024 6:07 AM EST) HBV SURFACE ANTIGEN NON-REACTI VE NON-REACTI VE [facility] Blood 2024 6:07 AM EST 2024 6:13 AM EST Clarissa Bush ADMINISTRATIVE JOB TITLES LAB BLOOD ORDER MALLY Performing Organization Address City/[facility]/ZIP Co de Phone Number [address] [address] * Hepatitis C antibody, qualitative (2024 6:07 AM EST) HCV NON-REACTIV E NON-REACTI VE [facility] Blood 2024 6:07 AM EST 2024 6:13 AM EST Clarissa Ferminance ADMINISTRATIVE JOB TITLES LAB BLOOD ORDER MALLY Performing Organization Address City/[facility]/ZIP Co de Phone Number [address] [address] * (ABNORMAL) Osmolality, serum (2024 6:07 AM EST) OSMOLALITY 279(L) 289 - 308 mOsm/kg water [facility] Blood 2024 6:07 AM EST 2024 6:13 AM EST Clarissa Bush ADMINISTRATIVE JOB TITLES LAB BLOOD ORDER MALLY Performing Organization Address City/State/[facility] Co de Phone Number [address] [address] * (ABNORMAL) Comprehensive metabolic panel (2024 6:07 AM EST) SODIUM 131(L) 133 - 146 mmol/L [facility] POTASSIUM 4.9 3.3 - 5.1 mmol/L [facility] CHLORIDE 96 96 - 108 mmol/L [facility] CO2 25 21 - 35 mmol/L [facility] BUN 23(H) 6 - 19 mg/dL [facility] CREATININE 1.10 0.5 - 1.5 mg/dL [facility] GLUCOSE 112(H) 70 - 99 mg/dL [facility] ALBUMIN 3.2(L) 3.9 - 4.8 g/dL [facility] TOTAL PROTEIN 5.4(L) 6.5 - 8.0 g/dL [facility] CALCIUM 8.6 8.4 - 10.3 mg/dL [facility] ALKALINE PHOSPHATASE 127(H) 39 - 117 U/L [facility] TOTAL BILIRUBIN 0.8 0.0 - 1.2 mg/dL [facility] AST 159(H) 0 - 37 U/L [facility] ALT 156(H) 0 - 40 U/L [facility] GLOBULIN 2.2 1 - 4.8 g/dL [facility] EGFR 74 >59 mL/min/1.7 3m2 [facility] Comment:Estimated glomerular filtration rate calculated using the CKD-EPI refit equation. ANION GAP 15 10 - 20 mmol/L [facility] Blood 2024 6:07 AM EST 2024 6:13 AM EST Clarissa Bush ADMINISTRATIVE JOB TITLES LAB BLOOD ORDER MALLY [facility] [address] [place] [address] * (ABNORMAL) CBC and differential (2024 6:07 AM EST) WBC 9.35 4.00 - 11.00 K/uL [facility] RBC 4.40(L) 4.50 - 5.90 M/uL [facility] HGB 13.6 13.5 - 17.5 g/dL [facility] HCT 39.9(L) 41.0 - 53.0 % [facility] PLT 217 150 - 450 K/uL [facility] MCV 90.7 80.0 - 100.0 fL [facility] MCH 30.9 27.0 - 31.0 pg [facility] MCHC 34.1 32.0 - 36.0 g/dL [facility] RDW 13.1 11.5 - 14.5 % [facility] MPV 10.7 8.4 - 12.0 fL [facility] NRBC 0.00 0.00 /100 WBCs [facility] ABSOLUTE NRBC 0.00 0.00 K/uL [facility] DIFF METHOD Auto [facility] NEUTS 70.3 48.0 - 76.0 % [facility] LYMPHS 16.5(L) 18.0 - 41.0 % [facility] MONOS 11.9(H) 4.0 - 11.0 % [facility] EOS 0.6 0.0 - 5.0 % [facility] [facility] BASOS 0.4 0.0 - 1.5 % [facility] Granulocytes, immature (%) 0.3 0.0 - 0.9 % [facility] ABSOLUTE NEUTS 6.57 1.92 - 7.60 K/uL [facility] ABSOLUTE LYMPHS 1.54 0.72 - 4.10 K/uL [facility] ABSOLUTE MONOS 1.11(H) 0.16 - 1.10 K/uL [facility] ABSOLUTE EOS 0.06 0.00 - 0.50 K/uL [facility] ABSOLUTE BASOS 0.04 0.00 - 0.15 K/uL [facility] Granulocytes, immature 0.03 0.00 - 0.09 K/uL [facility] Blood 2024 6:07 AM EST 2024 6:13 AM EST Clarissa Bush ADMINISTRATIVE JOB TITLES LAB BLOOD ORDER MALLY Performing Organization Address City/[facility] Co de Phone Number [address] [address] * Phosphorus (2024 6:07 AM EST) PHOSPHORUS 4.1 2.7 - 4.5 mg/dL [facility] Blood 2024 6:07 AM EST 2024 6:13 AM EST Clarissa Ferminance ADMINISTRATIVE JOB TITLES LAB BLOOD ORDER MALLY Performing Organization Address [facility] Co pa Phone Number [address] [address] * TSH (2024 6:07 AM EST) TSH 2.60 0.27 - 4.20 uIU/mL [facility] Blood 2024 6:07 AM EST 2024 6:13 AM EST Clarissa Bush ADMINISTRATIVE JOB TITLES LAB BLOOD ORDER MALLY Performing Organization Address City/[facility]/ZIP Co de Phone Number [address] [address] * Magnesium (2024 6:07 AM EST) MAGNESIUM 1.6 1.6 - 2.6 mg/dL [facility] Blood 2024 6:07 AM EST 2024 6:13 AM EST Clarissa Ferminance ADMINISTRATIVE JOB TITLES LAB BLOOD ORDER MALLY Performing Organization Address City/[facility]/ZIP Co de Phone Number [address] [address] * (ABNORMAL) Troponin (12/30/2024 3:24 PM EST) Troponin-T, HS Gen5 48(H) 0 - 14 ng/L [facility] Blood 12/30/2024 3:24 PM EST 12/30/2024 3:27 PM EST Harinder Mcleod MD LAB BLOOD ORDERABLES [address] [address] * (ABNORMAL) Troponin (12/30/2024 12:41 PM EST) Troponin-T, HS Gen5 42(H) 0 - 14 ng/L [facility] Blood 12/30/2024 12:4 1 PM EST 12/30/2024 1:00 PM EST Harinder Mcleod MD LAB BLOOD ORDERABLES [address] [address] * XR Chest Portable (12/30/2024 11:55 AM EST) Anatomical Region Laterality Modality Chest Computed Radiogr aphy 12/30/2024 1:26 PM EST Impressions 12/30/2024 1:27 PM EST Small bilateral pleural effusions. Narrative 12/30/2024 1:27 PM EST XR CHEST PORTABLE Referring clinician's provided indication for this examination in [facility]: Dyspnea (Shortness of Breath) COMPARISON: None FINDINGS: Devices/Tubes/Lines: None. Lungs: Bibasilar atelectasis. No focal consolidation or pulmonary edema. Pleura: Small bilateral pleural effusions. No pneumothorax. Heart/Mediastinum: Normal heart and mediastinum. Bones/Soft Tissues: No significant abnormality. Procedure Note Clarissa Donovan MD - 12/30/2024 XR CHEST PORTABLE Referring clinician's provided indication for this examination in Epic:Dyspnea (Shortness of Breath) COMPARISON: None FINDINGS: Devices/Tubes/Lines: None. Lungs: Bibasilar atelectasis. No focal consolidation or pulmonary edema. Pleura: Small bilateral pleural effusions. No pneumothorax. Heart/Mediastinum: Normal heart and mediastinum. Bones/Soft Tissues: No significant abnormality. IMPRESSION: Small bilateral pleural effusions. Harinder Mcleod MD IMG XR CH EST * Ethanol, blood (12/30/2024 11:40 AM EST) ETHANOL <10 <10 mg/dL [facility] Blood 12/30/2024 11:4 0 AM EST 12/30/2024 11:49 AM EST Harinder Mcleod MD LAB BLOOD ORDERABLES [address] [address] * (ABNORMAL) NT-proBNP (12/30/2024 11:40 AM EST) NT-PROBNP 2,879(H) 0 - 125 pg/mL [facility] Blood 12/30/2024 11:4 0 AM EST 12/30/2024 11:49 AM EST Harinder Mcleod MD LAB BLOOD ORDERABLES Performing Organization Address City/[facility]/ZIP Co de Phone Number [address] [address] * (ABNORMAL) Troponin (12/30/2024 11:40 AM EST) Troponin-T, HS Gen5 38(H) 0 - 14 ng/L [facility] Blood 12/30/2024 11:4 0 AM EST 12/30/2024 11:49 AM EST Harinder Mcleod MD LAB BLOOD ORDERABLES Performing Organization Address [facility] Co de Phone Number [address] [address] * Magnesium (12/30/2024 11:40 AM EST) MAGNESIUM 1.6 1.6 - 2.6 mg/dL [facility] Blood 12/30/2024 11:4 0 AM EST 12/30/2024 11:49 AM EST Harinder Mcleod MD LAB BLOOD ORDERABLES Performing Organization Address [facility] Phone Number [address] [address] * (ABNORMAL) LFTs (hepatic panel) (12/30/2024 11:40 AM EST) ALKALINE PHOSPHATASE 147(H) 39 - 117 U/L [facility] TOTAL BILIRUBIN 0.6 0.0 - 1.2 mg/dL [facility] DIRECT BILIRUBIN 0.3 0 - 0.3 mg/dL [facility] Bilirubin (Indirect) 0.3 0 - 1.5 mg/dL [facility] AST 95(H) 0 - 37 U/L [facility] ALT 116(H) 0 - 40 U/L [facility] TOTAL PROTEIN 6.4(L) 6.5 - 8.0 g/dL [facility] ALBUMIN 4.0 3.9 - 4.8 g/dL [facility] GLOBULIN 2.4 1 - 4.8 g/dL [facility] A/G Ratio 1.67 1.00 - 4.80 RATIO [facility] Blood 12/30/2024 11:4 0 AM EST 12/30/2024 11:49 AM EST Harinder Mcleod MD LAB BLOOD ORDERABLES Performing Organization Address City/[facility] Co pa Phone Number [address] [address] * (ABNORMAL) Basic metabolic panel (12/30/2024 11:40 AM EST) SODIUM 128(L) 133 - 146 mmol/L [facility] CHLORIDE 91(L) 96 - 108 mmol/L [facility] POTASSIUM 5.1 3.3 - 5.1 mmol/L [facility] CO2 22 21 - 35 mmol/L [facility] BUN 23(H) 6 - 19 mg/dL [facility] CREATININE 0.90 0.5 - 1.5 mg/dL [facility] GLUCOSE 146(H) 70 - 99 mg/dL [facility] CALCIUM 8.8 8.4 - 10.3 mg/dL [facility] EGFR 95 >59 mL/min/1.7 3m2 [facility] Comment:Estimated glomerular filtration rate calculated using the CKD-EPI refit equation. ANION GAP 20 10 - 20 mmol/L [facility] Blood 12/30/2024 11:4 0 AM EST 12/30/2024 11:49 AM EST Harinder Mcleod MD LAB BLOOD ORDERABLES [address] [address] * (ABNORMAL) CBC and differential (12/30/2024 11:40 AM EST) WBC 8.14 4.00 - 11.00 K/uL [facility] RBC 4.73 4.50 - 5.90 M/uL [facility] HGB 14.6 13.5 - 17.5 g/dL [facility] HCT 44.2 41.0 - 53.0 % [facility] PLT 237 150 - 450 K/uL [facility] MCV 93.4 80.0 - 100.0 fL [facility] MCH 30.9 27.0 - 31.0 pg [facility] MCHC 33.0 32.0 - 36.0 g/dL [facility] RDW 13.2 11.5 - 14.5 % [facility] MPV 11.0 8.4 - 12.0 fL [facility] NRBC 0.00 0.00 /100 WBCs [facility] ABSOLUTE NRBC 0.00 0.00 K/uL [facility] DIFF METHOD Auto [facility] NEUTS 72.8 48.0 - 76.0 % [facility] LYMPHS 15.8(L) 18.0 - 41.0 % [facility] MONOS 10.7 4.0 - 11.0 % [facility] EOS 0.2 0.0 - 5.0 % [facility] BASOS 0.4 0.0 - 1.5 % [facility] Granulocytes, immature (%) 0.1 0.0 - 0.9 % [facility] ABSOLUTE NEUTS 5.92 1.92 - 7.60 K/uL [facility] ABSOLUTE LYMPHS 1.29 0.72 - 4.10 K/uL [facility] ABSOLUTE MONOS 0.87 0.16 - 1.10 K/uL [facility] ABSOLUTE EOS 0.02 0.00 - 0.50 K/uL [facility] ABSOLUTE BASOS 0.03 0.00 - 0.15 K/uL [facility] Granulocytes, immature 0.01 0.00 - 0.09 K/uL [facility] Blood 12/30/2024 11:4 0 AM EST 12/30/2024 11:49 AM EST Harinder Mcleod MD LAB BLOOD ORDERABLES Performing Organization Address City/State/[facility] Co de Phone Number [address] [address] * ECG 12-LEAD (12/30/2024 9:49 AM EST) Ventricular Rate EKG/MIN 141 BPM [facility] Atrial Rate 85 BPM [facility] QRS Duration 90 ms [facility] QT Interval 328 ms [facility] QTC Interval 502 ms [facility] R Wave [place] -29 degrees [facility] T Wave [place] 48 degrees [facility] 12/30/2024 9:49 AM EST 12/30/2024 11:44 AM EST Narrative [facility] - 12/30/2024 11:44 AM EST Critical Test Result: High HR Atrial fibrillation with rapid ventricular response with premature ventricular or aberrantly conducted complexes Possible Anterior infarct , age undetermined Abnormal ECG No previous ECGs available Confirmed by David BARRETT ([id number]) on 12/30/2024 11:44:08 AM Harinder Mcleod MD ECG ORDER MALLY TODD_MYESHA documented in this encounter Visit Diagnoses Diagnosis Atrial fibrillation with RVR- Primary Atrial fibrillation with RVR Acute heart failure, unspecified heart failure type Abnormal electrocardiogram (ECG) (EKG) Alcohol abuse Nondependent alcohol abuse, unspecified drinking behavior Hyperlipidemia Other and unspecified hyperlipidemia Attention deficit hyperactivity disorder (ADHD), predominantly inattentive type Hyponatremia Hyposmolality and/or hyponatremia Acute systolic heart failure documented in this encounter Admitting Diagnoses Diagnosis Atrial fibrillation with RVR documented in this encounter Administered Medications Inactive Administered Medications - up to 3 most recent administrations Medication Order MAR Action Action Date Dose Rate Site apixaban (ELIQUIS) tablet 5 mg 5 mg, Oral, 2 times daily, First dose on Wed12/30/24 at 2100, Take with or without food Given 01/03/2025 8:49 AM EST 5 mg Given 01/02/2025 8:28 PM EST 5 mg Given 01/02/2025 1:10 PM EST 5 mg carvedilol (COREG) tablet 12.5 mg 12.5 mg, Oral, 2 times daily with meals, First dose (after last modification) on Wed01/02/25 at 2100, Hold Parameters: Systolic BP LESS than 100 mmHg, Hold Parameters: Heart Rate LESS than 60 bpm Given 01/03/2025 8:48 AM EST 12.5 mg Given 01/02/2025 8:28 PM EST 12.5 mg carvedilol (COREG) tablet 3.125 mg 3.125 mg, Oral, 2 times daily with meals, First dose (after last modification) on Wed01/01/25 at 1500 Given 01/01/2025 2:10 PM EST 3.125 mg carvedilol (COREG) tablet 6.25 mg 6.25 mg, Oral, 2 times daily with meals, First dose (after last modification) on Wed01/02/25 at 1100, Hold Parameters: Systolic BP LESS than 100 mmHg, Hold Parameters: Heart Rate LESS than 60 bpm Given 01/02/2025 1:10 PM EST 6.25 mg digoxin (LANOXIN) injection 0.25 mg 0.25 mg, Intravenous, Once, On 12/31/24 at 0100, For 1 dose Given 2024 1:30 AM EST 0.25 mg digoxin (LANOXIN) injection 0.25 mg 0.25 mg, Intravenous, Once, On 12/30/24 at 1900, For 1 dose Given 12/30/2024 9:12 PM EST 0.25 mg digoxin (LANOXIN) injection 0.5 mg 0.5 mg, Intravenous, Once, On 12/30/24 at 1645, For 1 dose Given 12/30/2024 5:33 PM EST 0.5 mg digoxin (LANOXIN) tablet 0.125 mg 0.125 mg, Oral, Daily, First dose on Maud 12/31/24 at 1015 Given 01/03/2025 8:48 AM EST 0.125 mg Given 01/02/2025 1:10 PM EST 0.125 mg Given 01/01/2025 8:45 AM EST 0.125 mg folic acid (FOLVITE) tablet 1 mg 1 mg, Oral, Daily, First dose on 12/30/24 at 1900 Given 01/03/2025 8:49 AM EST 1 mg Given 01/02/2025 1:10 PM EST 1 mg Given 01/01/2025 8:45 AM EST 1 mg furosemide (LASIX) injection 20 mg 20 mg, Intravenous, Once, On 12/30/24 at 1245, For 1 dose Given 12/30/2024 12:49 PM EST 20 mg furosemide (LASIX) injection 20 mg 20 mg, Intravenous, Every 12 hours, First dose on 12/30/24 at 2200 Given 01/01/2025 8:17 PM EST 20 mg Given 01/01/2025 8:44 AM EST 20 mg Given 2024 9:19 PM EST 20 mg furosemide (LASIX) tablet 40 mg 40 mg, Oral, Daily, First dose on 01/02/25 at 1130 Given 01/03/2025 8:48 AM EST 40 mg Given 01/02/2025 1:10 PM EST 40 mg LORazepam (ATIVAN) tablet 0-4 mg 0-4 mg, Oral, Every 4 hours PRN, withdrawal signs/symptoms, Starting on Wed12/30/24 at 1852, CIWA 0 to 7 = no medication needed Continue administering CIWA every 4 hours. Stop CIWA after 6 consecutive scores less than 8. CIWA 8 to 15 = 2 mg Continue CIWA every 4 hours. If no improvement in CIWA after 2 consecutive dosings or if patient shows worsening of symptoms, contact RC to change regimen. CIWA greater than 15 = 4 mg Call RC to reassess. Given 01/02/2025 1:58 AM EST 1 mg LORazepam (ATIVAN) tablet 0.5 mg 0.5 mg, Oral, Once, On Wed01/02/25 at 2245, For 1 dose Given 01/02/2025 10:08 PM EST 0.5 mg magnesium oxide (MAG-OX) tablet 400 mg 400 mg, Oral, Daily, First dose on Wed12/30/24 at 1730, Dose is expressed in magnesium oxide salt. Magnesium oxide salt 1.67 mg = elemental magnesium 1 mg. Given 01/03/2025 8:49 AM EST 400 mg Given 01/02/2025 1:10 PM EST 400 mg Given 01/01/2025 8:45 AM EST 400 mg metoprolol tartrate (LOPRESSOR) IMMEDIATE release tablet 25 mg 25 mg, Oral, Once, On Wed12/31/24 at 2300, For 1 dose Given 2024 10:31 PM EST 25 mg metoprolol tartrate (LOPRESSOR) IMMEDIATE release tablet 50 mg 50 mg, Oral, Once, On Wed12/30/24 at 1245, For 1 dose Given 12/30/2024 12:49 PM EST 50 mg metoprolol tartrate (LOPRESSOR) injection 5 mg 5 mg, Intravenous, Every 5 min PRN, other (free text field), HR>100, Starting on Wed12/30/24 at 1121, For 3 doses, Hold for systolic bp <100 or HR<100 Given 12/30/2024 12:03 PM EST 5 mg multivitamin (MVI) oral 1 each 1 each, Oral, Daily, First dose on Wed12/30/24 at 1900 Given 01/03/2025 8:48 AM EST 1 each Given 01/02/2025 1:10 PM EST 1 each Given 01/01/2025 8:45 AM EST 1 each nicotine (NICODERM CQ) 21 mg/24 hr 1 patch 1 patch, Transdermal, Administer over 24 Hours, Daily, First dose on Wed12/31/24 at 0900 Patch Applied 01/03/2025 8:55 AM EST 1 patch Ri ght Arm Patch Applied 01/02/2025 1:14 PM EST 1 patch Left Shoulder Patch Applied 01/01/2025 8:49 AM EST 1 patch Right Shoulder regadenoson (LEXISCAN) injection syringe 0.4 mg 0.4 mg, Intravenous, Once as needed, pre procedure/treatment, Starting on Wed01/02/25 at 1033, For 1 dose, Cardiology Procedural Contrast Given 01/02/2025 11:58 AM EST 0.4 mg sacubitriL-valsartan (ENTRESTO) 24-26 mg per tablet 1 tablet 1 tablet, Oral, 2 times daily, First dose on Wed12/31/24 at 1200 Given 01/03/2025 8:48 AM EST 1 tablet Given 01/02/2025 8:28 PM EST 1 tablet Given 01/02/2025 1:10 PM EST 1 tablet spironolactone (ALDACTONE) tablet 12.5 mg 12.5 mg, Oral, Daily, First dose on Wed12/31/24 at 1200, Administer with meals. THIS IS A LOW RISK HAZARDOUS AGENT. Must use appropriate precautions when handling and disposing of this agent. Given 01/03/2025 8:49 AM EST 12.5 mg Given 01/02/2025 1:10 PM EST 12.5 mg Given 01/01/2025 8:45 AM EST 12.5 mg technetium Tc-99m sestamibi (CARDIOLITE/MIRALUMA) injection kit 10.9 millicurie 10.9 millicurie, Intravenous, Once as needed, pre procedure/treatment, Starting on Wed01/02/25 at 0845, For 1 dose, Procedural Contrast/Med Active Now, Is this dose derived from a Low Enriched Uranium (HILLARY) generator? Yes Given 01/02/2025 8:45 AM EST 10.9 millicuries technetium Tc-99m sestamibi (CARDIOLITE/MIRALUMA) injection kit 30.8 millicurie 30.8 millicurie, Intravenous, Once as needed, pre procedure/treatment, Starting on Wed01/02/25 at 1140, For 1 dose, Procedural Contrast/Med Active Now, Is this dose derived from a Low Enriched Uranium (HILLARY) generator? Yes Given 01/02/2025 11:40 AM EST 30.8 millicuries thiamine (Vitamin B-1) tablet 100 mg 100 mg, Oral, Daily, First dose on Wed12/30/24 at 1900 Given 01/03/2025 9:29 AM EST 100 mg Given 01/02/2025 1:10 PM EST 100 mg Given 01/01/2025 8:45 AM EST 100 mg documented in this encounter Active and Recently Administered Medications Times are shown in EST. Scheduled Medication Order 01/01/2025 01/02/2025 01/03/2025 apixaban (ELIQUIS) tablet 5 mg 5 mg, Oral, 2 times daily, First dose on Wed12/30/24 at 2100, Take with or without food 0845 (Given - Provider: Shante Cedeno, ARABELLA)2016 (Given - Provider: Garrett Gallardo RN) 1310 (Given - Provider: Shante Cedeno, ARABELLA)2027 (Given - Provider: Josette Deng, ARABELLA) 0849 (Given - Provider: Lisa Carter) carvedilol (COREG) tablet 12.5 mg 12.5 mg, Oral, 2 times daily with meals, First dose (after last modification) on Wed01/02/25 at 2100, Hold Parameters: Systolic BP LESS than 100 mmHg, Hold Parameters: Heart Rate LESS than 60 bpm 2027 (Given - Provider: Josette Deng, ARABELLA) 0848 (Given - Provider: Lisa Carter) carvedilol (COREG) tablet 3.125 mg (CANCELED) 3.125 mg, Oral, 2 times daily with meals, First dose (after last modification) on Wed01/01/25 at 1500 1410 (Given - Provider: Shante Cedeno, ARABELLA) 1112 (Not Given - Provider: Shante Cedeno, ARABELLA - Reason: Per MD/MOUSTAPHA Order) carvedilol (COREG) tablet 6.25 mg (CANCELED) 6.25 mg, Oral, 2 times daily with meals, First dose (after last modification) on Wed01/02/25 at 1100, Hold Parameters: Systolic BP LESS than 100 mmHg, Hold Parameters: Heart Rate LESS than 60 bpm 1310 (Given - Provider: Shante Cedeno RN)1731 (Not Given - Provider: Shante Cedeno RN - Reason: Contraindicated - Comment: AM dose given late, approx 1300.. rescheduled dose) digoxin (LANOXIN) tablet 0.125 mg 0.125 mg, Oral, Daily, First dose on Wed12/31/24 at 1015 0845 (Given - Provider: Shante Cedeno RN) 1310 (Given - Provider: Shante Cedeno RN) 0848 (Given - Provider: Lisa Carter) folic acid (FOLVITE) tablet 1 mg 1 mg, Oral, Daily, First dose on Wed12/30/24 at 1900 0845 (Given - Provider: Shante Cedeno RN) 1310 (Given - Provider: Shante Cedeno RN) 0849 (Given - Provider: Lisa Carter) furosemide (LASIX) injection 20 mg (CANCELED) 20 mg, Intravenous, Every 12 hours, First dose on Wed12/30/24 at 2200 0844 (Given - Provider: Shante Cedeno RN)2017 (Given - Provider: Garrett Gallardo RN) 1113 (Not Given - Provider: Shante Cedeno RN - Reason: Per MD/MOUSTAPHA Order) furosemide (LASIX) tablet 40 mg 40 mg, Oral, Daily, First dose on Wed01/02/25 at 1130 1310 (Given - Provider: Shante Cedeno RN) 0848 (Given - Provider: Lisa Carter) LORazepam (ATIVAN) tablet 0.5 mg (COMPLETED) 0.5 mg, Oral, Once, On Wed01/02/25 at 2245, For 1 dose 2208 (Given - Provider: Garrett Gallardo RN) magnesium oxide (MAG-OX) tablet 400 mg 400 mg, Oral, Daily, First dose on Wed12/30/24 at 1730, Dose is expressed in magnesium oxide salt. Magnesium oxide salt 1.67 mg = elemental magnesium 1 mg. 0845 (Given - Provider: Shante Cdeeno RN) 1310 (Given - Provider: Shante Cedeno RN) 0849 (Given - Provider: Lisa Carter) multivitamin (MVI) oral 1 each 1 each, Oral, Daily, First dose on 12/30/24 at 1900 0845 (Given - Provider: Shante Cedeno RN) 1310 (Given - Provider: Shante Cedeno RN) 0848 (Given - Provider: Lisa Carter) nicotine (NICODERM CQ) 21 mg/24 hr 1 patch 1 patch, Transdermal, Administer over 24 Hours, Daily, First dose on 12/31/24 at 0900 0848 (Patch Removed - Provider: Shante Cedeno RN)0849 (Patch Applied - Provider: Shante Cedeno RN) 1313 (Patch Removed - Provider: Shante Cedeno RN)1314 (Patch Applied - Provider: Shante Cedeno RN) 0849 (Patch Removed - Provider: Lisa Carter)0855 (Patch Applied - Provider: Lisa Carter)1248 (Due: Patch Removed - Provider: Automatic Discharge Provider - Comment: Time automatically adjusted from order being discontinued) sacubitriL-valsartan (ENTRESTO) 24-26 mg per tablet 1 tablet 1 tablet, Oral, 2 times daily, First dose on 12/31/24 at 1200 0845 (Given - Provider: Shante Cedeno RN)2017 (Given - Provider: Garrett Gallardo RN) 1310 (Given - Provider: Shante Cedeno RN)2027 (Given - Provider: Josette Deng RN) 0848 (Given - Provider: Lisa Carter) spironolactone (ALDACTONE) tablet 12.5 mg 12.5 mg, Oral, Daily, First dose on 12/31/24 at 1200, Administer with meals. THIS IS A LOW RISK HAZARDOUS AGENT. Must use appropriate precautions when handling and disposing of this agent. 0845 (Given - Provider: Shante Cedeno RN) 1310 (Given - Provider: Shante Cedeno RN) 0849 (Given - Provider: Lisa Carter) thiamine (Vitamin B-1) tablet 100 mg 100 mg, Oral, Daily, First dose on 12/30/24 at 1900 0845 (Given - Provider: Shante Cedeno RN) 1310 (Given - Provider: Shante Cedeno RN) 7834 (Given - Provider: Lisa Carter) PRN Medication Order 01/01/2025 01/02/2025 01/03/2025 LORazepam (ATIVAN) tablet 0-4 mg 0-4 mg, Oral, Every 4 hours PRN, withdrawal signs/symptoms, Starting on 12/30/24 at 1852, CIWA 0 to 7 = no medication needed Continue administering CIWA every 4 hours. Stop CIWA after 6 consecutive scores less than 8. CIWA 8 to 15 = 2 mg Continue CIWA every 4 hours. If no improvement in CIWA after 2 consecutive dosings or if patient shows worsening of symptoms, contact RC to change regimen. CIWA greater than 15 = 4 mg Call RC to reassess. 0158 (Given - Provider: Garrett Gallardo RN - Comment: 2mg per ciwa scale, pt requested 1mg) regadenoson (LEXISCAN) injection syringe 0.4 mg (COMPLETED) 0.4 mg, Intravenous, Once as needed, pre procedure/treatment, Starting on Wed01/02/25 at 1033, For 1 dose, Cardiology Procedural Contrast 1158 (Given - Provider: Kay Sheehan PA-C) sodium chloride (NS) 0.9 % syringe flush 3 mL 3 mL, Intravenous, As needed, line care, Starting on 12/30/24 at 1852, Per Institutional IV Line Care Policy. technetium Tc-99m sestamibi (CARDIOLITE/MIRALUMA) injection kit 10.9 millicurie (COMPLETED) 10.9 millicurie, Intravenous, Once as needed, pre procedure/treatment, Starting on Wed01/02/25 at 0845, For 1 dose, Procedural Contrast/Med Active Now, Is this dose derived from a Low Enriched Uranium (HILLARY) generator? Yes 0845 (Given - Provider: Jose Ramon Saab) technetium Tc-99m sestamibi (CARDIOLITE/MIRALUMA) injection kit 30.8 millicurie (COMPLETED) 30.8 millicurie, Intravenous, Once as needed, pre procedure/treatment, Starting on Wed01/02/25 at 1140, For 1 dose, Procedural Contrast/Med Active Now, Is this dose derived from a Low Enriched Uranium (HILLARY) generator? 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 It is not the complete legal health record.[facility]
--- OUTSIDE RECORDS SUMMARY | 2025-01-12 11:08 | XMS_ITS | Clinical Summary ---
Author Organization [facility] Address [phone] [facility] [place] [address] Care Team Providers Care Jewel Cupping Machine Operator Name Role Phone Renny Burton MD Primary Care Provider [phone] Allergies No known active allergies Medications Medication Sig Dispensed Refills Start Date End Date Status dextroamphetamine sulfate 10 MG tablet Take 10 mg by mouth daily. 12/12/2024 Active apixaban (ELIQUIS) 5 mg tablet Take 1 tablet (5 mg total) by mouth 2 (two) times a day. 60 tablet 1 01/03/2025 Active carvedilol (COREG) 12.5 MG tablet Take 1 tablet (12.5 mg total) by mouth 2 (two) times a day with meals. 60 tablet 1 01/03/2025 Active digoxin (LANOXIN) 125 mcg tablet Take 1 tablet (0.125 mg total) by mouth daily. 30 tablet 1 01/04/2025 Active folic acid (FOLVITE) 1 MG tablet Take 1 tablet (1 mg total) by mouth daily. 30 tablet 01/04/2025 Active furosemide (LASIX) 40 MG tablet Take 0.5 tablets (20 mg total) by mouth daily. 20 tablet 1 01/04/2025 Active magnesium oxide (MAG-OX) 400 mg (241.3 mg elemental) tablet Take 1 tablet (400 mg total) by mouth daily. 30 tablet 01/04/2025 Active nicotine (NICODERM CQ) 21 mg/[address] 1 patch onto the skin daily. 14 patch 01/04/2025 Active sacubitriL-valsar almaguer (ENTRESTO) 24-26 mg per tablet Take 1 tablet by mouth 2 (two) times a day. 60 tablet 1 01/03/2025 Active spironolactone (ALDACTONE) 25 MG tablet Take 0.5 tablets (12.5 mg total) by mouth daily. 30 tablet 1 01/04/2025 Active thiamine (VITAMIN B-1) 100 mg Tab tablet Take 1 tablet (100 mg total) by mouth daily. 30 tablet 01/04/2025 Active lisinopril (PRINIVIL,ZESTRIL ) 10 MG tablet Take 1 tablet by mouth every morning. 11/17/2024 01/03/2025 Discontinued (Stop Taking at Discharge) Active Problems Problem Noted Date Diagnosed Date Acute systolic heart failure 2024 Assessment & Plan (01/02/2025 3:56 PM EST): Bedside echo indicated EF of 30%. Likely tachycardia mediated due to A-fib from EtOH use Spironolactone and Entresto were initiated on admission. Symptoms improved with diuresis, he is currently -6 L -transition to lasix 40 mg po daily -Will need an outpatient ischemic workup Assessment & Plan (01/01/2025 6:26 PM EST): Bedside echo indicated EF of 30%. Likely tachycardia mediated due to A-fib from EtOH use Spironolactone and Entresto were initiated on admission. Symptoms improved with diuresis, he is currently -6 L -Continue diuresis with IV Lasix 20 mg twice daily. -Will need an outpatient ischemic workup Assessment & Plan (2024 5:08 PM EST): Bedside echo indicated EF of 30%. Formal echo pending Discussed with cardiology and plans to start on spironolactone and Entresto. Patient continues with shortness of breath is diuresed overnight approximately 1700 mL. Legs show 1+ edema lungs with fine rales at the bases indicating continued volume overload. chest x-ray shows small bilateral pleural effusions the patient has had symptoms of orthopnea as well as edema. -Continue diuresis with IV Lasix 20 mg twice daily. Atrial fibrillation with RVR 12/30/2024 Assessment & Plan (01/02/2025 3:56 PM EST): Patient presented with A-fib RVR and decompensated [...] around 30%. Patient started on anticoagulation given [id number] score of 3. He tolerated coreg 3.125mg -Will continue with digoxin 0.125 mg daily -Continue to monitor on telemetry. -Follow-up formal echocardiogram. - Titrate Coreg for rate control -Continue apixaban 5 mg twice daily -rpt dig level Assessment & Plan (01/01/2025 6:26 PM EST): Patient presented with A-fib RVR (HR 140s) and decompensated heart failure. He noticed increased SOB, orthopnea and edema about a week ago. 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 After a time his symptoms resolved spontaneously and patient was loaded with digoxin. He had a bedside echo that showed an EF of around 30%. Patient started on anticoagulation given [id number] score of 3. - Will continue with digoxin 0.125 mg daily -Continue to monitor on telemetry. -Follow-up formal echocardiogram. -trial low dose coreg fro improved rate control -Continue apixaban 5 mg twice daily Assessment & Plan (2024 5:08 PM EST): Patient presented with A-fib RVR also in decompensated heart failure with volume overload orthopnea and edema. Patient thinks the symptoms have been [...] denies recent fever chills or acute illnesses Seen by cardiology in the ED and given metoprolol- had side effect of cyanosis of the hands and feet after given metoprolol. Symptoms resolved spontaneously and patient was loaded with digoxin for rate control. Bedside, echocardiogram was done showing an EF of around 30%, avoid calcium channel gene, supervisor dehydrogenation recommended digoxin loading which we will continue overnight EKG revealed A-fib, ventricular response rate of 141 bpm, possible anterior infarct age-indeterminate. TSH is 2.60 Dig level is 1.4 after load. Patient with increased heart rates in 140s with ambulation this morning. - Will continue with digoxin 0.125 mg daily -Continue to monitor on telemetry. -Follow-up formal echocardiogram. Patient started on anticoagulation given [id number] score of 3. -Continue apixaban 5 mg twice daily Assessment & Plan (12/30/2024 6:32 PM EST): Patient presented with A-fib RVR also in decompensated heart failure with volume overload orthopnea and edema. Patient thinks the symptoms have been [...] of around 30%, avoid calcium channel gene, supervisor dehydrogenation recommended digoxin loading which we will continue overnight EKG showed possible anterior infarct age indeterminate Plan will institute recommendations as per cardiology, order formal echocardiogram, salesperson used cars, continue digoxin, salesperson used cars, check labs including TSH, electrolytes I will start anticoagulation, patient has normal platelet count normal CBC and no symptoms of bleeding, discussed with my attending physician, we will need to look at valvular function and echo is pending CHADS-VASc = 3 (3.2% risk of stroke per year) Congestive heart failure (1 point) Hypertension (1 point) Age 65-74 (1 point) Alcohol abuse 12/30/2024 Assessment & Plan (01/02/2025 3:56 PM EST): This gentleman drinks daily and drinks varying [...] no signs or symptoms of alcohol withdrawal - Keep monitoring on CIWA scale Alcoholic hepatitis Patient does have a mild transaminitis, LFTs slightly increased today compared to yesterday infectious hepatitis serologies for hepatitis B and C are nonreactive. - Repeat LFTs in a.m. to continue to trend. - Abstain from alcohol use Assessment & Plan (01/01/2025 6:26 PM EST): This gentleman drinks daily and drinks varying [...] no signs or symptoms of alcohol withdrawal - Keep monitoring on CIWA scale Alcoholic hepatitis Patient does have a mild transaminitis, LFTs slightly increased today compared to yesterday infectious hepatitis serologies for hepatitis B and C are nonreactive. - Repeat LFTs in a.m. to continue to trend. - Abstain from alcohol use Assessment & Plan (2024 5:08 PM EST): This gentleman drinks daily and drinks varying [...] no signs or symptoms of alcohol withdrawal - Keep monitoring on CIWA scale Alcoholic hepatitis Patient does have a mild transaminitis, LFTs slightly increased today compared to yesterday infectious hepatitis serologies for hepatitis B and C are nonreactive. - Repeat LFTs in a.m. to continue to trend. - Abstain from alcohol use Assessment & Plan (12/30/2024 6:32 PM EST): This gentleman drinks daily and drinks varying [...] check infectious hepatitis serologies and follow closely Attention deficit hyperactiv ity disorder (ADHD), predominantly inattentive type 12/30/2024 Assessment & Plan (01/02/2025 3:56 PM EST): patient's dextroamphetamine was held in the setting of A-fib with RVR. Patient remained stable. Assessment & Plan (01/01/2025 6:26 PM EST): patient's dextroamphetamine was held in the setting of A-fib with RVR. Patient remained stable. Assessment & Plan (2024 5:08 PM EST): patient's dextroamphetamine was held in the setting of A-fib with RVR. Patient remained stable. Assessment & Plan (12/30/2024 6:32 PM EST): I will hold the patient's stimulant in the setting of A-fib RVR Hyperlipidemia 12/30/2024 Assessment & Plan (01/02/2025 3:56 PM EST): Patient is not on a statin, lipid panel shows cholesterol of 108 with LDL of 50. No indication for statin at this time. Assessment & Plan (01/01/2025 6:26 PM EST): Patient is not on a statin, lipid panel shows cholesterol of 108 with LDL of 50. No indication for statin at this time. Assessment & Plan (2024 5:08 PM EST): Patient is not on a statin, lipid panel shows cholesterol of 108 with LDL of 50. No indication for statin at this time. Assessment & Plan (12/30/2024 6:32 PM EST): Patient is not on a statin we will check a lipid panel Hyponatremia 12/30/2024 Assessment & Plan (01/02/2025 3:56 PM EST): Resolved. Presents tonight with a mild hyponatremia with sodium of 128. Hyponatremia is likely multifactorial including lisinopril, use of beer and CHF. Sodium has corrected to 138. - Repeat labs in AM. Assessment & Plan (01/01/2025 6:26 PM EST): Presents tonight with a mild hyponatremia with sodium of 128. Hyponatremia is likely multifactorial including lisinopril, use of beer and CHF. Sodium has corrected to 131 with treatment. - Repeat labs in AM. Assessment & Plan (2024 5:08 PM EST): Presents tonight with a mild hyponatremia with sodium of 128. Hyponatremia is likely multifactorial including lisinopril, use of beer and CHF. Sodium has corrected to 131 with treatment. - Repeat labs in AM. Assessment & Plan (12/30/2024 6:32 PM EST): Presents tami with a mild hyponatremia, he is on lisinopril which we will hold as he is normotensive and currently receiving digoxin. Will check serum osmolality urine osmolality and urine sodium, follow BMP closely, avoid rapid overcorrection Encounters Date Type Department Care Team Description 12/30/2024 9:51 AM EST - 01/03/2025 12:48 PM EST Hospital Encounter [facility] [address] [place] [address] Harinder Mcleod MD Devries, Marv Choi, MD Beck, MD Malena Marin, Onelia Antonio, MD Martinez, April C, DO Discharge Disposition: Home or Self Care 12/30/2024 Procedure Pass [facility] [address] [place] [address] from Last 3 Months Family History Medical History Relation Comments Rheumatic fever Father Relation Status Comments Father Social History Tobacco Use Types Packs/Day Years [...] on file Sexual Orientation Not on file Last Filed Vital Signs Vital Sign Reading [...] Mass Index 25.74 12/30/2024 9:43 AM EST Plan of Treatment Upcoming Encounters Date Type Department Care Team (Late st Contact Info) Description 02/02/2025 2:40 PM EST Office Visit [facility] [address] [place] [address] [facility] [address] [place] [address] David Barrett MD [address] [place] [phone] [email or web address] Health Maintenance Due Date Last Done Comments Adult Td,Tdap Booster 1958 DEPRESSION SCREENING 1970 SMOKING Hx and SMOKELESS TOBACCO SCREENING 1971 PNEUMOCOCCAL VACCINES (50+ years) (1 of 2 - PCV) 1977 COLOGUARD 2003 COLONOSCOPY 2003 COLORECTAL CANCER SCREENING 2003 FIT TEST 2003 FOBT 2003 SIGMOIDOSCOPY 2003 VIRTUAL COLONOSCOPY 2003 ZOSTER VACCINES (1 of 2) 2008 RSV VACCINE (1 - Risk 60-74 years 1-dose series) 2018 ABDOMINAL AORTIC ANEURYSM (AAA) SCREENING 2023 INFLUENZA VACCINE (#1) 2024 COVID-19 VACCINE ( season) 2024 CREATININE LEVEL 01/02/2026 01/02/2025, 01/2025, 2024, Additional history exists POTASSIUM LEVEL 01/02/2026 01/02/2025, 01/2025, 2024, Additional history exists SCREENING FOR DIABETES 01/02/2028 01/02/2025 LIPID PANEL 2029 2024 HEPATITIS B SCREENING Completed 2024 HEPATITIS C SCREENING Completed 2024 HEPATITIS A VACCINES Aged Out No long er eligible based on patient's age to complete this topic HEPATITIS B VACCINES Aged Out No long er eligible based on patient's age to complete this topic HIB VACCINES Aged Out No longer eligi ble based on patient's age to complete this topic MENINGOCOCCAL VACCINES (ACWY) Aged Out No longer eligible based on patient's age to complete this topic Medical Devices Not on file Procedures Procedure Name Priority Date/Time Associated Diagnosis Comments DIGOXIN LEVEL Routine 01/03/2025 7:07 AM EST NC MYOCARDIAL PERFUSION PHARMACOLOGIC STRESS MULTIPLE Routine 01/02/2025 2:20 PM EST Acute heart failure, unspecified heart failure type NC100 (TECH ORDER ONLY) NC STRESS TEST WITH NUCLEAR IMAGING Routine 01/02/2025 12:13 PM EST Acute heart failure, unspecified heart failure type BASIC METABOLIC PANEL Routine 01/02/2025 5:17 AM EST CBC Routine 01/02/2025 5:17 AM EST TTE COMPREHENSIVE Routine 01/01/2025 2:4 7 PM EST Abnormal electrocardiogram (ECG) (EKG) LFTS (HEPATIC PANEL) Routine 01/01/2025 5:33 AM EST CBC Routine 01/01/2025 5:33 AM EST BASIC METABOLIC PANEL Routine 01/01/2025 5:33 AM EST SODIUM, RANDOM URINE Routine 2024 8:00 AM EST OSMOLALITY (URINE, RANDOM) Routine 2024 8:00 AM EST DIGOXIN LEVEL Routine 2024 6:07 AM EST LIPID PANEL Routine 2024 6:07 AM EST OSMOLALITY, SERUM Routine 2024 6:0 7 AM EST COMPREHENSIVE METABOLIC PANEL Routine 2024 6:07 AM EST CBC AND DIFFERENTIAL Routine 2024 6:07 AM EST PHOSPHORUS Routine 2024 6:07 AM EST TSH Routine 2024 6:07 AM EST MAGNESIUM Routine 2024 6:07 AM EST HEPATITIS B CORE ANTIBODY, TOTAL Routine 2024 6:07 AM EST HEPATITIS B SURFACE ANTIGEN Routine 2024 6:07 AM EST HEPATITIS C ANTIBODY, QUALITATIVE Routine 2024 6:07 AM EST TROPONIN STAT 12/30/2024 3:24 PM EST TROPONIN STAT 12/30/2024 12:41 PM EST XR CHEST PORTABLE Routine 12/30/2024 11: 55 AM EST ETHANOL, BLOOD STAT 12/30/2024 11:40 AM EST NT-PROBNP STAT 12/30/2024 11:40 AM EST TROPONIN STAT 12/30/2024 11:40 AM EST MAGNESIUM STAT 12/30/2024 11:40 AM EST LFTS (HEPATIC PANEL) STAT 12/30/2024 11:40 AM EST BASIC METABOLIC PANEL STAT 12/30/2024 11:40 AM EST CBC AND DIFFERENTIAL STAT 12/30/2024 11:40 AM EST ECG 12-LEAD STAT 12/30/2024 9:49 AM EST from Last 3 Months Results * Digoxin level (01/03/2025 7:07 AM EST) Only the most recent of2 resultswithin the time period is included. DIGOXIN 1.0 0.9 - 2.0 ng/mL [facility] Blood 01/03/2025 7:07 AM EST 01/03/2025 7:19 AM EST April Martinez DO LAB BLOOD ORDERABL ES Performing Organization Address City/State/[facility] Co de Phone Number [address] [address] * NC Myocardial Perfusion Pharmacologic Stress Multiple [...] Please refer to that report in Epic. Narrative 01/02/2025 2:37 PM EST Dictate modality [...] separately. Please refer to that report in [facility]. COMPARISON: None. FINDINGS: Imaging Findings Myocardial [...] reportedseparately. Please refer to that report in [facility]. COMPARISON: None. FINDINGS: Imaging Findings Myocardial [...] reportedseparately. Please refer to that report in [facility]. David Barrett MD CV NM CARDIAC * NC Stress Result for Nuclear Stress Test (01/02/2025 12:13 PM EST) Max Predicted Heart Rate 154 bpm [facility] Max BP Systolic 130 mmHg [facility] Max BP Diastolic 80 mmHg [facility] Max HR 164 BPM [facility] Resting HR 111 BPM [facility] Resting BP Systolic 122 mmHg [facility] Resting BP Diastolic 80 mmHg [facility] Peak METS 1.0 METS [facility] Peak HR 117 BPM [facility] Peak BP Systolic 130 mmHg [facility] Peak BP Diastolic 80 mmHg [facility] Anatomical Region Laterality Modality Heart Other 01/02/2025 [...] injection of Tc99m Sestamibi by Lauryn nuclear physics teacher. Test done as a pharmacologic test due [...] predicted heart rate. Rate pressure product was [id number]. David Barrett MD CV NM CARDIAC * CBC (01/02/2025 5:17 AM EST) Only the most recent of2 resultswithin the time period is included. WBC 7.19 4.00 - 11.00 K/uL [facility] RBC 4.98 4.50 - 5.90 M/uL [facility] HGB 15.2 13.5 - 17.5 g/dL [facility] HCT 46.8 41.0 - 53.0 % [facility] PLT 237 150 - 450 K/uL [facility] MCV 94.0 80.0 - 100.0 fL [facility] MCH 30.5 27.0 - 31.0 pg [facility] MCHC 32.5 32.0 - 36.0 g/dL [facility] RDW 13.3 11.5 - 14.5 % [facility] MPV 10.8 8.4 - 12.0 fL [facility] NRBC 0.00 0.00 /100 WBCs [facility] ABSOLUTE NRBC 0.00 0.00 K/uL [facility] Blood 01/02/2025 5:17 AM EST 01/02/2025 6:15 AM EST April Martinez DO LAB BLOOD ORDERABL ES [address] [address] * (ABNORMAL) Basic metabolic panel (01/02/2025 5:17 AM EST) Only the most recent of3 resultswithin the time period is included. SODIUM 138 133 - 146 mmol/L [facility] CHLORIDE 101 96 - 108 mmol/L [facility] POTASSIUM 4.4 3.3 - 5.1 mmol/L [facility] CO2 26 21 - 35 mmol/L [facility] BUN 16 6 - 19 mg/dL [facility] CREATININE 0.90 0.5 - 1.5 mg/dL [facility] GLUCOSE 101(H) 70 - 99 mg/dL [facility] CALCIUM 8.2(L) 8.4 - 10.3 mg/dL [facility] EGFR 94 >59 mL/min/1.7 3m2 [facility] Comment:Estimated glomerular filtration rate calculated using the CKD-EPI refit equation. ANION GAP 15 10 - 20 mmol/L [facility] Blood 01/02/2025 5:17 AM EST 01/02/2025 6:15 AM EST April Martinez DO LAB BLOOD ORDERABL ES [address] [address] * TTE COMPREHENSIVE (01/01/2025 2:47 PM EST) [...] There is mild leaflet thickening. There is jagb-la-bafbjhkz aortic stenosis. The peak and mean aortic [...] no prior studies for comparison. Clarissa Bush CAR SEALER CV ECHO ORDERAB LES * (ABNORMAL) LFTs (hepatic panel) (01/01/2025 5:33 AM EST) Only the most recent of2 resultswithin the time period is included. ALKALINE PHOSPHATASE 116 39 - 117 U/L [facility] TOTAL BILIRUBIN 0.4 0.0 - 1.2 mg/dL [facility] DIRECT BILIRUBIN <0.2 0 - 0.3 mg/dL [facility] Bilirubin (Indirect) NOT CALCULATED 0 - 1.5 mg/dL [facility] AST 96(H) 0 - 37 U/L [facility] ALT 142(H) 0 - 40 U/L [facility] TOTAL PROTEIN 5.3(L) 6.5 - 8.0 g/dL [facility] ALBUMIN 3.2(L) 3.9 - 4.8 g/dL [facility] GLOBULIN 2.1 1 - 4.8 g/dL [facility] A/G Ratio 1.52 1.00 - 4.80 RATIO [facility] Blood 01/01/2025 5:33 AM EST 01/01/2025 6:19 AM EST Onelia Guy MD LAB BLOOD ORDERABLES [address] [address] * Sodium, random urine (2024 8:00 AM EST) URINE SODIUM <20 mmol/L [facility] Urine (Urine) 2024 8:0 0 AM EST 2024 10:30 AM EST Clarissa Bush CAR SEALER URINE ORDERABLE S [address] [place] [address] * Osmolality, Random Urine (2024 8:00 AM EST) URINE OSMOLALITY 249 mOsm/kg water [facility] Urine (Urine) 2024 8:0 0 AM EST 2024 10:30 AM EST Clarissa Bush CAR SEALER URINE ORDERABLE S [address] [address] * (ABNORMAL) Comprehensive metabolic panel (2024 6:07 AM EST) SODIUM 131(L) 133 - 146 mmol/L [facility] POTASSIUM 4.9 3.3 - 5.1 mmol/L [facility] CHLORIDE 96 96 - 108 mmol/L [facility] CO2 25 21 - 35 mmol/L [facility] BUN 23(H) 6 - 19 mg/dL [facility] CREATININE 1.10 0.5 - 1.5 mg/dL [facility] GLUCOSE 112(H) 70 - 99 mg/dL [facility] ALBUMIN 3.2(L) 3.9 - 4.8 g/dL [facility] TOTAL PROTEIN 5.4(L) 6.5 - 8.0 g/dL [facility] CALCIUM 8.6 8.4 - 10.3 mg/dL [facility] ALKALINE PHOSPHATASE 127(H) 39 - 117 U/L [facility] TOTAL BILIRUBIN 0.8 0.0 - 1.2 mg/dL [facility] AST 159(H) 0 - 37 U/L [facility] ALT 156(H) 0 - 40 U/L [facility] GLOBULIN 2.2 1 - 4.8 g/dL [facility] EGFR 74 >59 mL/min/1.7 3m2 [facility] Comment:Estimated glomerular filtration rate calculated using the CKD-EPI refit equation. ANION GAP 15 10 - 20 mmol/L [facility] Blood 2024 6:07 AM EST 2024 6:13 AM EST Clarissa Bush CAR SEALER LAB BLOOD ORDER MALLY Performing Organization Address City/[facility]/ZIP Co de Phone Number [address] [address] * Hepatitis C antibody, qualitative (2024 6:07 AM EST) HCV NON-REACTIV E NON-REACTI VE [facility] Blood 2024 6:07 AM EST 2024 6:13 AM EST Clarissa Bush CAR SEALER LAB BLOOD ORDER MALLY Performing Organization Address [facility] Co de Phone Number [address] [address] * Hepatitis B core antibody, total (2024 6:07 AM EST) HEP B CORE AB, TOT NON-REACTI VE NON-REACTI VE [facility] Blood 2024 6:07 AM EST 2024 6:13 AM EST Clarissa Bush CAR SEALER LAB BLOOD ORDER MALLY Performing Organization Address City/[facility] Co de Phone Number [address] [address] * Hepatitis B surface antigen (2024 6:07 AM EST) HBV SURFACE ANTIGEN NON-REACTI VE NON-REACTI VE [facility] Blood 2024 6:07 AM EST 2024 6:13 AM EST Clarissa Ferminance CAR SEALER LAB BLOOD ORDER MALLY Performing Organization Address City/[facility]/ZIP Co de Phone Number [address] [address] * (ABNORMAL) CBC and differential (2024 6:07 AM EST) Only the most recent of2 resultswithin the time period is included. WBC 9.35 4.00 - 11.00 K/uL [facility] RBC 4.40(L) 4.50 - 5.90 M/uL [facility] HGB 13.6 13.5 - 17.5 g/dL [facility] HCT 39.9(L) 41.0 - 53.0 % [facility] PLT 217 150 - 450 K/uL [facility] MCV 90.7 80.0 - 100.0 fL [facility] MCH 30.9 27.0 - 31.0 pg [facility] MCHC 34.1 32.0 - 36.0 g/dL [facility] RDW 13.1 11.5 - 14.5 % [facility] MPV 10.7 8.4 - 12.0 fL [facility] NRBC 0.00 0.00 /100 WBCs [facility] ABSOLUTE NRBC 0.00 0.00 K/uL [facility] DIFF METHOD Auto [facility] NEUTS 70.3 48.0 - 76.0 % [facility] LYMPHS 16.5(L) 18.0 - 41.0 % [facility] MONOS 11.9(H) 4.0 - 11.0 % [facility] EOS 0.6 0.0 - 5.0 % [facility] BASOS 0.4 0.0 - 1.5 % [facility] Granulocytes, immature (%) 0.3 0.0 - 0.9 % [facility] ABSOLUTE NEUTS 6.57 1.92 - 7.60 K/uL [facility] ABSOLUTE LYMPHS 1.54 0.72 - 4.10 K/uL [facility] ABSOLUTE MONOS 1.11(H) 0.16 - 1.10 K/uL [facility] ABSOLUTE EOS 0.06 0.00 - 0.50 K/uL [facility] ABSOLUTE BASOS 0.04 0.00 - 0.15 K/uL [facility] Granulocytes, immature 0.03 0.00 - 0.09 K/uL [facility] Blood 2024 6:07 AM EST 2024 6:13 AM EST Clarissa Ferminance CAR SEALER LAB BLOOD ORDER MALLY Performing Organization Address City/[facility] Co de Phone Number [address] [address] * TSH (2024 6:07 AM EST) TSH 2.60 0.27 - 4.20 uIU/mL [facility] Blood 2024 6:07 AM EST 2024 6:13 AM EST Clarissa Ferminance CAR SEALER LAB BLOOD ORDER MALLY Performing Organization Address [facility] Phone Number [address] [address] * Phosphorus (2024 6:07 AM EST) PHOSPHORUS 4.1 2.7 - 4.5 mg/dL [facility] Blood 2024 6:07 AM EST 2024 6:13 AM EST Clarissa Ferminance CAR SEALER LAB BLOOD ORDER MALLY Performing Organization Address [facility] Phone Number [address] [address] * (ABNORMAL) Osmolality, serum (2024 6:07 AM EST) OSMOLALITY 279(L) 289 - 308 mOsm/kg water [facility] Blood 2024 6:07 AM EST 2024 6:13 AM EST Clarissa Farrisperance CAR SEALER LAB BLOOD ORDER MALLY Performing Organization Address [facility] [facility] Co de Phone Number [address] [address] * Magnesium (2024 6:07 AM EST) Only the most recent of2 resultswithin the time period is included. MAGNESIUM 1.6 1.6 - 2.6 mg/dL [facility] Blood 2024 6:07 AM EST 2024 6:13 AM EST Clarissa Bush CAR SEALER LAB BLOOD ORDER MALLY [address] [address] * (ABNORMAL) Lipid panel (2024 6:07 AM EST) [facility] HDL 44 mg/dL [facility] Comment: ? Interpretation <40 mg/dL: Low HDL cholesterol (major risk factor for CHD) Greater than or equal to 60 mg/dL: High HDL cholesterol ( negative risk factor for CHD) HDL - cholesterol is affected by a number of factors, e.g. smoking, excerise, hormones, sex and age. CHOLESTEROL 108 0 - 240 mg/dL [facility] TRIGLYCERIDES 72 30 - 160 mg/dL [facility] LDL 50 50 - 129 mg/dL [facility] Comment: LDL levels in terms of risk for coronary heart disease: <100 mg/dL: Optimal 100-129 mg/dL: Near or above optimal 130-159 mg/dL: Borderline high 160-189 mg/dL: High >190 mg/dL: Very High CARDIAC RISK RATIO 2.5(L) 3.4 - 5.0 [facility] Blood 2024 6:07 AM EST 2024 6:13 AM EST Clarissa Bush NP LAB BLOOD ORDER MALLY [address] [address] * (ABNORMAL) Troponin (12/30/2024 3:24 PM EST) Only the most recent of3 resultswithin the time period is included. Troponin-T, HS Gen5 48(H) 0 - 14 ng/L [facility] Blood 12/30/2024 3:24 PM EST 12/30/2024 3:27 PM EST Harinder Mcleod MD LAB BLOOD ORDERABLES [address] [address] * XR Chest Portable (12/30/2024 11:55 AM EST) Anatomical Region Laterality Modality Chest Computed Radiogr aphy 12/30/2024 1:26 PM EST Impressions 12/30/2024 1:27 PM EST Small bilateral pleural effusions. Narrative 12/30/2024 1:27 PM EST XR CHEST PORTABLE Referring clinician's provided indication for this examination in [facility]: Dyspnea (Shortness of Breath) COMPARISON: None FINDINGS: Devices/Tubes/Lines: None. Lungs: Bibasilar atelectasis. No focal consolidation or pulmonary edema. Pleura: Small bilateral pleural effusions. No pneumothorax. Heart/Mediastinum: Normal heart and mediastinum. Bones/Soft Tissues: No significant abnormality. Procedure Note Clarissa Donovan MD - 12/30/2024 XR CHEST PORTABLE Referring clinician's provided indication for this examination in [facility]:Dyspnea (Shortness of Breath) COMPARISON: None FINDINGS: Devices/Tubes/Lines: None. Lungs: Bibasilar atelectasis. No focal consolidation or pulmonary edema. Pleura: Small bilateral pleural effusions. No pneumothorax. Heart/Mediastinum: Normal heart and mediastinum. Bones/Soft Tissues: No significant abnormality. IMPRESSION: Small bilateral pleural effusions. Harinder Mcleod MD IMG XR CH EST * Ethanol, blood (12/30/2024 11:40 AM EST) ETHANOL <10 <10 mg/dL [facility] Blood 12/30/2024 11:4 0 AM EST 12/30/2024 11:49 AM EST Harinder Mcleod MD LAB BLOOD ORDERABLES Performing Organization Address City/[facility] Co de Phone Number [address] [address] * (ABNORMAL) NT-proBNP (12/30/2024 11:40 AM EST) NT-PROBNP 2,879(H) 0 - 125 pg/mL [facility] Blood 12/30/2024 11:4 0 AM EST 12/30/2024 11:49 AM EST Harinder Mcleod MD LAB BLOOD ORDERABLES Performing Organization Address [facility] Co de Phone Number [address] [address] * ECG 12-LEAD (12/30/2024 9:49 AM EST) Ventricular Rate EKG/MIN 141 BPM [facility] Atrial Rate 85 BPM [facility] QRS Duration 90 ms [facility] QT Interval 328 ms [facility] QTC Interval 502 ms [facility] R Wave [place] -29 degrees [facility] T Wave [place] 48 degrees [facility] 12/30/2024 9:49 AM EST 12/30/2024 11:44 AM EST Narrative [facility] - 12/30/2024 11:44 AM EST Critical Test Result: High HR Atrial fibrillation with rapid ventricular response with premature ventricular or aberrantly conducted complexes Possible Anterior infarct , age undetermined Abnormal ECG No previous ECGs available Confirmed by David BARRETT ([id number]) on 12/30/2024 11:44:08 AM Harinder Mcleod MD ECG ORDER MALLY Performing Organization Address City/[facility] Co de Phone Number [facility] from Last 3 Months Advance Directives Documents on File Type Date Recorded Patient Recruiting Consultant Expl anation Healthcare Proxy 01/04/2025 2:52 PM * Full Code (Latest Code Status on File) Date Activated Date Inactivated Comments 12/30/2024 6:52 PM Question Answer Comments Code Status Confirmed With: Patient Care Teams 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 It is not the complete legal health record.[facility]
--- OUTSIDE RECORDS SUMMARY | 2025-01-12 11:10 | XMS_ITS | Encounter Summary ---
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 Name Role Phone Renny Burton MD Primary Care Provider [phone] Encounter Details Date Type Department Care Team (Late st Contact Info) Description 12/30/2024 Procedure Pass [facility] [address] [place] [address] Social History Tobacco Use Types Packs/Day Years Used Date Smoking Tobacco: Every Day Cigarettes Smokeless Tobacco: Never Alcohol Use Standard Drinks/Week Comments Yes 0 [...] on file documented as of this encounter Plan of Treatment Upcoming Encounters Date Type Department Care Team (Late st Contact Info) Description 02/02/2025 2:40 PM EST Office Visit [facility] [address] [place] [address] [address] [place] [address] David Barrett MD [address] [place] [phone] documented as of this encounter Visit Diagnoses Not on filedocumented in this encounter Care Teams Sql Server Architect Relationship Specialty Start Date End Date Renny Burton MD [address] [place] [address] [address] [place] [address] PCP - General Internal Medicine 12/30/24 documented as of this encounter Additional Source Comments The information contained in this document represents components of the legal health record. It is not the complete legal health record.[facility]
== END 2025-01-12 10:52 | disposition home or self-care (01) ==
LOC: HO.HMCH 10:20
PROVIDERS: PCP Internal Medicine; Visit Provider Internal Medicine
DX: I48.91 Unspecified atrial fibrillation (principal)

== ENCOUNTER → 2025-01-12 10:20 | Outpatient (BNVA) | payer OTHER, SELFPAY | PROVIDERS: PCP Internal Medicine; Visit Provider Internal Medicine ==

== ENCOUNTER 2025-01-26 08:36 | Outpatient (AMB) | payer OTHER, SELFPAY ==
[2025-01-26 08:41] VITALS: BP 120/84; BMI 24.3
--- NOTE | 2025-01-26 08:41 | A.OFFPC_ITS ---
Vital Signs 01/26/25 08:41 Height 6 ft 2 in Weight 189 lb BMI 24.3 BP 120/84 Blood Pressure Location Lt brachial Position Sitting Pulse Source Pulse Oximeter Oxygen Delivery Method Room Air Intake Visit Reasons: Follow Up Publishing Agent Required: No Accompanied by: Self / Same As Patient Allergies No Known Allergies Allergy (Verified 01/26/25 08:41) Medication List - Last Reconciled 01/26/25 by Renny Burton MD apixaban (Eliquis) 5 mg PO BID carvedilol 12.5 mg PO BID dextroamphetamine sulfate 10 mg PO DAILY digoxin 0.125 mg PO DAILY folic acid 1 mg PO DAILY furosemide 20 mg PO DAILY lisinopril 20 mg PO DAILY magnesium oxide 400 mg PO DAILY nicotine topical DAILY sacubitril-valsartan 24-26 mg (Entresto) 1 tab PO BID spironolactone 12.5 mg PO DAILY thiamine HCl (vitamin B1) 100 mg PO DAILY Tobacco use date assessed: 01/26/25 Fall risk assessment: 2 + Falls in past year Last assessed Fall Risk: 01/26/25 Dental Screening Dental Screen Date: 01/26/25 Did you have a dental visit in the last 12 months?: Yes Did you have a dental problem in the last 6 months where you did not have access to dental care?: No Was dental information given to patient?: Patient has dentist HPI Follow Up HPI Details Afib on rx; seeing cardiology; feels well [facility] Medical History Elevated BP without diagnosis of hypertension Surgical History History of arthroscopy of right knee Family History Father No problems noted. Mother No problems noted. Family/Other Malignant hyperthermia Social History Housing: House Alcohol intake: current Alcohol intake frequency: a few times a week Alcohol type: beer Patient Tobacco Use Status: Current everyday Tobacco user Tobacco use type: Cigar (2-3 a day) e-Cigarette/Vaping Use: Never Used Second Hand Smoke Exposure: No service: No Current occupational status: employed Cognitive needs: No Hearing needs: No Vision needs: Yes Questionnaire PHQ-9 Over the last 2 weeks, how often have you been bothered by any of the following problems? 1. Little interest or pleasure in doing things: not at all 2. Feeling down, depressed, or hopeless: not at all 3. Trouble falling or staying asleep, or sleeping too much: not at all 4. Feeling tired or having little energy: not at all 5. Poor appetite or overeating: not at all 6. Feeling bad about yourself - or that you are a failure or have let yourself or your family down: not at all 7. Trouble concentrating on things, such as reading the newspaper or watching television: not at all 8. Moving or speaking so slowly that other people could have noticed. Or the opposite - being so fidgety or restless that you have been moving around a lot more than usual: not at all 9. Thoughts that you would be better off or of hurting yourself in some way: not at all Total score: 0 Depression Screening Interpretation: Negative Depression Screening Done: Yes Source: Developed by Drs. George Dela Cruz, Ana Stanley, Clarence Sifuentes and colleagues, with an educational binta from [employer]. Thrive Questionnaire Date Thrive assessed: 01/26/25 I am a: Patient What is your living situation today?: I have a steady place to live Within the past 12 months, did the food you bought not last and you didn't have the money to get more?: Never true Within the past 12 months, did you worry whether your food would run out before you got money to buy more?: Never true Do you have trouble paying for medicines?: No Do you have trouble getting transportation to medical appointments?: No Do you have trouble paying your heating and electricity bill?: No Do you have trouble taking care of your child, family member or friend?: No Do you have trouble with day-to-day activities such as bathing, preparing meals, shopping, managing finances, etc.?: No Are you currently unemployed and looking for a job?: No Are you interested in more education?: No Please select the resources that you would like help with: None Currently or been in a relationship where the following occur: No concerns reported THRIVE Score: 0 AUDIT C Alcohol Use Questionnaire (AUDIT-C) 1. How often do you have a drink containing alcohol?: 2-3 times a week 2. How many drinks containing alcohol do you have on a typical day when you are drinking?: 1 or 2 Total Score: 3 ANASTASIIA-7 AMB Questionnaire ANASTASIIA-7 Date ANASTASIIA - 7 assessed: 01/26/25 Feeling nervous, anxious, or on edge: 0 = Not at all Not being able to stop or control worryin = Not at all Worrying too much about different things: 0 = Not at all Trouble relaxin = Not at all Being so restless that it is hard to sit still: 0 = Not at all Becoming easily annoyed or irritable: 0 = Not at all Feeling afraid as if something awful might happen: 0 = Not at all Total ANASTASIIA-7 score (0-4 normal; 5-9 mild; 10-14 moderate; 15-21 severe): 0 Source: Developed by Drs. George Dela Cruz, Ana Stanley, Clarence Sifuentes and colleagues, with an educational binta from [employer]. Review of Systems Const Denies chills, Denies headache(s) and Denies weight loss ENT Denies headache(s) Card Denies chest pain, Denies syncope, Denies irregular heart rhythm and Denies dyspnea Resp Denies chest congestion, Denies cough and Denies dyspnea GI Denies abdominal pain, Denies change in stool character, Denies nausea and Denies vomiting Musc Denies deformity and Denies joint swelling Neuro Denies syncope and Denies headache(s) Physical exam (Primary Care) Vital Signs: Last Vital Signs BP 120/84 01/26/25 08:41 Oxygen Delivery Method Room Air 01/26/25 08:41 BMI result Body Mass Index 24.3 Tobacco/Smoking Status: Tobacco use Status Tobacco use date assessed 01/26/25 01/26/25 08:47 Patient Tobacco Use Status Current everyday Tobacco 01/26/25 08:47 Tobacco use type Cigar (2-3 a day) 01/26/25 08:47 e-Cigarette/Vaping Use Never Used 01/26/25 08:47 PHQ-9: PHQ-9 Score PHQ-9: Total score 0 01/26/25 08:47 Depression Screening Interpretation: Negative Thrive Assessment: Date of Thrive Assessment Date Thrive assessed 01/26/25 01/26/25 08:47 Currently or been in a relationship where the following occur: No concerns reported Const General: cooperative, comfortable, no acute distress and alert Neck Neck: Yes no lymphadenopathy Thyroid: Thyroid normal Resp Effort & Inspection: normal respiratory effort Auscultation: clear to auscultation bilaterally Percussion: percussion normal Cardio Jugular venous distension: no JVD Palpation: normal PMI Rate: regular rate Rhythm: regular rhythm Heart sounds: S1 normal heart sound present and S2 normal heart sound present GI Inspection: Yes normal to inspection Palpation (GI): No hepatosplenomegaly present Skin General skin exam: no rashes or lesions noted Extrem General: Yes no clubbing, cyanosis or edema Coding Level of Care Code Est Pt Level 3 (73521) Diagnoses Atrial fibrillation I48.91 Assessment & Plan Assessment & Plan (1) Atrial fibrillation: Code(s): I48.91 - Unspecified atrial fibrillation Category: Medical Plan: per cardiology
--- OUTSIDE RECORDS SUMMARY | 2025-01-26 08:49 | XMS_ITS | Clinical Summary ---
Author Organization [facility] Address [phone] [facility] [place] [address] Care Team Providers Care Criminal Investigator Name Role Phone Renny Burton MD Primary Care Provider [phone] Allergies No known active allergies Medications Medication [...] around 30%. Patient started on anticoagulation given [id number] score of 3. He tolerated coreg 3.125mg [...] around 30%. Patient started on anticoagulation given [id number] score of 3. - Will continue with [...] of around 30%, avoid calcium channel gene, corporate statistical financial analyst recommended digoxin loading which we will continue overnight EKG revealed A-fib, ventricular response rate of 141 bpm, possible anterior infarct age-indeterminate. TSH is 2.60 Dig level is 1.4 after load. Patient with increased heart rates in 140s with ambulation this morning. - Will continue with digoxin 0.125 mg daily -Continue to monitor on telemetry. -Follow-up formal echocardiogram. Patient started on anticoagulation given [id number] score of 3. -Continue apixaban 5 mg [...] of around 30%, avoid calcium channel gene, corporate statistical financial analyst recommended digoxin loading which we will continue overnight EKG showed possible anterior infarct age indeterminate Plan will institute recommendations as per cardiology, order formal echocardiogram, school lunch monitor, continue digoxin, school lunch monitor, check labs including TSH, electrolytes I [...] Hospital Encounter [facility] [address] [place] [address] Harinder Mcleod MD Devries, Marv Choi, MD Beck, MD Malena Marin, Onelia Antonio, MD Martinez, April C, DO Discharge Disposition: Home or Self Care 12/30/2024 Procedure Pass [facility] [address] [place] [address] from Last 3 Months Family History Medical [...] Description 02/02/2025 2:40 PM EST Office Visit [facility] [address] [place] [address] [facility] [address] [place] [address] David Barrett MD [address] [place] [email or web address] Health Maintenance Due Date Last Done Comments [...] included. DIGOXIN 1.0 0.9 - 2.0 ng/mL [facility] Blood 01/03/2025 7:07 AM EST 01/03/2025 7:19 AM EST April Martinez DO LAB BLOOD ORDERABL ES Performing Organization Address City/State/[facility] Co de Phone Number [address] [address] * NC Myocardial Perfusion Pharmacologic Stress Multiple [...] separately. Please refer to that report in [facility]. COMPARISON: None. FINDINGS: Imaging Findings [...] reportedseparately. Please refer to that report in [facility]. COMPARISON: None. FINDINGS: Imaging Findings [...] reportedseparately. Please refer to that report in [facility]. David Barrett MD CV NM CARDIAC * NC Stress Result for Nuclear Stress Test (01/02/2025 12:13 PM EST) Max Predicted Heart Rate 154 bpm [facility] Max BP Systolic 130 mmHg [facility] Max BP Diastolic 80 mmHg [facility] Max HR 164 BPM [facility] Resting HR 111 BPM [facility] Resting BP Systolic 122 mmHg [facility] Resting BP Diastolic 80 mmHg [facility] Peak METS 1.0 METS [facility] Peak HR 117 BPM [facility] Peak BP Systolic 130 mmHg [facility] Peak BP Diastolic 80 mmHg [facility] Anatomical Region Laterality Modality Heart Other 01/02/2025 [...] by injection of Tc99m Sestamibi by Lauryn licensed nuclear operator. Test done as a pharmacologic test [...] predicted heart rate. [place] was [id number]. David Barrett MD CV NM CARDIAC * CBC (01/02/2025 5:17 AM EST) Only the most recent of2 resultswithin the time period is included. WBC 7.19 4.00 - 11.00 K/uL [facility] RBC 4.98 4.50 - 5.90 M/uL [facility] HGB 15.2 13.5 - 17.5 g/dL [facility] HCT 46.8 41.0 - 53.0 % [facility] PLT 237 150 - 450 K/uL [facility] MCV 94.0 80.0 - 100.0 fL [facility] MCH 30.5 27.0 - 31.0 pg [facility] MCHC 32.5 32.0 - 36.0 g/dL [facility] RDW 13.3 11.5 - 14.5 % [facility] MPV 10.8 8.4 - 12.0 fL [facility] NRBC 0.00 0.00 /100 WBCs [facility] ABSOLUTE NRBC 0.00 0.00 K/uL [facility] Blood 01/02/2025 5:17 AM EST 01/02/2025 6:15 AM EST April Martinez DO LAB BLOOD ORDERABL ES [address] [address] * (ABNORMAL) Basic metabolic panel (01/02/2025 5:17 AM EST) Only the most recent of3 resultswithin the time period is included. SODIUM 138 133 - 146 mmol/L [facility] CHLORIDE 101 96 - 108 mmol/L [facility] POTASSIUM 4.4 3.3 - 5.1 mmol/L [facility] CO2 26 21 - 35 mmol/L [facility] BUN 16 6 - 19 mg/dL [facility] CREATININE 0.90 0.5 - 1.5 mg/dL [facility] GLUCOSE 101(H) 70 - 99 mg/dL [facility] CALCIUM 8.2(L) 8.4 - 10.3 mg/dL [facility] EGFR 94 >59 mL/min/1.7 3m2 [facility] Comment:Estimated glomerular filtration rate calculated using the CKD-EPI refit equation. ANION GAP 15 10 - 20 mmol/L [facility] Blood 01/02/2025 5:17 AM EST 01/02/2025 6:15 AM EST April Martinez DO LAB BLOOD ORDERABL ES [address] [address] * TTE COMPREHENSIVE (01/01/2025 2:47 PM EST) [...] There is mild leaflet thickening. There is wokz-oc-slwujley aortic stenosis. The peak and mean aortic [...] no prior studies for comparison. Clarissa Bush CATEGORY DIRECTOR CV ECHO ORDERAB LES * (ABNORMAL) LFTs (hepatic panel) (01/01/2025 5:33 AM EST) Only the most recent of2 resultswithin the time period is included. ALKALINE PHOSPHATASE 116 39 - 117 U/L [facility] TOTAL BILIRUBIN 0.4 0.0 - 1.2 mg/dL [facility] DIRECT BILIRUBIN <0.2 0 - 0.3 mg/dL [facility] Bilirubin (Indirect) NOT CALCULATED 0 - 1.5 mg/dL [facility] AST 96(H) 0 - 37 U/L [facility] ALT 142(H) 0 - 40 U/L [facility] TOTAL PROTEIN 5.3(L) 6.5 - 8.0 g/dL [facility] ALBUMIN 3.2(L) 3.9 - 4.8 g/dL [facility] GLOBULIN 2.1 1 - 4.8 g/dL [facility] A/G Ratio 1.52 1.00 - 4.80 RATIO [facility] Blood 01/01/2025 5:33 AM EST 01/01/2025 6:19 AM EST Onelia Guy MD LAB BLOOD ORDERABLES [address] [address] * Sodium, random urine (2024 8:00 AM EST) URINE SODIUM <20 mmol/L [facility] Urine (Urine) 2024 8:0 0 AM EST 2024 10:30 AM EST Clarissa Bush CATEGORY DIRECTOR URINE ORDERABLE S [address] [place] [address] * Osmolality, Random Urine (2024 8:00 AM EST) URINE OSMOLALITY 249 mOsm/kg water [facility] Urine (Urine) 2024 8:0 0 AM EST 2024 10:30 AM EST Clarissa Bush CATEGORY DIRECTOR URINE ORDERABLE S [address] [address] * (ABNORMAL) Comprehensive metabolic panel (2024 6:07 AM EST) SODIUM 131(L) 133 - 146 mmol/L [facility] POTASSIUM 4.9 3.3 - 5.1 mmol/L [facility] CHLORIDE 96 96 - 108 mmol/L [facility] CO2 25 21 - 35 mmol/L [facility] BUN 23(H) 6 - 19 mg/dL [facility] CREATININE 1.10 0.5 - 1.5 mg/dL [facility] GLUCOSE 112(H) 70 - 99 mg/dL [facility] ALBUMIN 3.2(L) 3.9 - 4.8 g/dL [facility] TOTAL PROTEIN 5.4(L) 6.5 - 8.0 g/dL [facility] CALCIUM 8.6 8.4 - 10.3 mg/dL [facility] ALKALINE PHOSPHATASE 127(H) 39 - 117 U/L [facility] TOTAL BILIRUBIN 0.8 0.0 - 1.2 mg/dL [facility] AST 159(H) 0 - 37 U/L [facility] ALT 156(H) 0 - 40 U/L [facility] GLOBULIN 2.2 1 - 4.8 g/dL [facility] EGFR 74 >59 mL/min/1.7 3m2 [facility] Comment:Estimated glomerular filtration rate calculated using the CKD-EPI refit equation. ANION GAP 15 10 - 20 mmol/L [facility] Blood 2024 6:07 AM EST 2024 6:13 AM EST Clarissa Bush CATEGORY DIRECTOR LAB BLOOD ORDER MALLY Performing Organization Address City/[facility]/ZIP Co de Phone Number [address] [address] * Hepatitis C antibody, qualitative (2024 6:07 AM EST) HCV NON-REACTIV E NON-REACTI VE [facility] Blood 2024 6:07 AM EST 2024 6:13 AM EST Clarissa Bush CATEGORY DIRECTOR LAB BLOOD ORDER MALLY Performing Organization Address [facility] Co de Phone Number [address] [address] * Hepatitis B core antibody, total (2024 6:07 AM EST) HEP B CORE AB, TOT NON-REACTI VE NON-REACTI VE [facility] Blood 2024 6:07 AM EST 2024 6:13 AM EST Clarissa Bush CATEGORY DIRECTOR LAB BLOOD ORDER MALLY Performing Organization Address City/[facility] Co de Phone Number [address] [address] * Hepatitis B surface antigen (2024 6:07 AM EST) HBV SURFACE ANTIGEN NON-REACTI VE NON-REACTI VE [facility] Blood 2024 6:07 AM EST 2024 6:13 AM EST Clarissa Ferminance CATEGORY DIRECTOR LAB BLOOD ORDER MALLY Performing Organization Address City/[facility]/ZIP Co de Phone Number [address] [address] * (ABNORMAL) CBC and differential (2024 6:07 AM EST) Only the most recent of2 resultswithin the time period is included. WBC 9.35 4.00 - 11.00 K/uL [facility] RBC 4.40(L) 4.50 - 5.90 M/uL [facility] HGB 13.6 13.5 - 17.5 g/dL [facility] HCT 39.9(L) 41.0 - 53.0 % [facility] PLT 217 150 - 450 K/uL [facility] MCV 90.7 80.0 - 100.0 fL [facility] MCH 30.9 27.0 - 31.0 pg [facility] MCHC 34.1 32.0 - 36.0 g/dL [facility] RDW 13.1 11.5 - 14.5 % [facility] MPV 10.7 8.4 - 12.0 fL [facility] NRBC 0.00 0.00 /100 WBCs [facility] ABSOLUTE NRBC 0.00 0.00 K/uL [facility] DIFF METHOD Auto [facility] NEUTS 70.3 48.0 - 76.0 % [facility] LYMPHS 16.5(L) 18.0 - 41.0 % [facility] MONOS 11.9(H) 4.0 - 11.0 % [facility] EOS 0.6 0.0 - 5.0 % [facility] BASOS 0.4 0.0 - 1.5 % [facility] Granulocytes, immature (%) 0.3 0.0 - 0.9 % [facility] ABSOLUTE NEUTS 6.57 1.92 - 7.60 K/uL [facility] ABSOLUTE LYMPHS 1.54 0.72 - 4.10 K/uL [facility] ABSOLUTE MONOS 1.11(H) 0.16 - 1.10 K/uL [facility] ABSOLUTE EOS 0.06 0.00 - 0.50 K/uL [facility] ABSOLUTE BASOS 0.04 0.00 - 0.15 K/uL [facility] Granulocytes, immature 0.03 0.00 - 0.09 K/uL [facility] Blood 2024 6:07 AM EST 2024 6:13 AM EST Clarissa Ferminance CATEGORY DIRECTOR LAB BLOOD ORDER MALLY Performing Organization Address City/[facility] Co de Phone Number [address] [address] * TSH (2024 6:07 AM EST) TSH 2.60 0.27 - 4.20 uIU/mL [facility] Blood 2024 6:07 AM EST 2024 6:13 AM EST Clarissa Ferminance CATEGORY DIRECTOR LAB BLOOD ORDER MALLY Performing Organization Address [facility] Phone Number [address] [address] * Phosphorus (2024 6:07 AM EST) PHOSPHORUS 4.1 2.7 - 4.5 mg/dL [facility] Blood 2024 6:07 AM EST 2024 6:13 AM EST Clarissa Ferminance CATEGORY DIRECTOR LAB BLOOD ORDER MALLY Performing Organization Address [facility] Phone Number [address] [address] * (ABNORMAL) Osmolality, serum (2024 6:07 AM EST) OSMOLALITY 279(L) 289 - 308 mOsm/kg water [facility] Blood 2024 6:07 AM EST 2024 6:13 AM EST Clarissa Farrisperance CATEGORY DIRECTOR LAB BLOOD ORDER MALLY Performing Organization Address [facility] Co de Phone Number [address] [address] * Magnesium (2024 6:07 AM EST) Only the most recent of2 resultswithin the time period is included. MAGNESIUM 1.6 1.6 - 2.6 mg/dL [facility] Blood 2024 6:07 AM EST 2024 6:13 AM EST Clarissa Bush CATEGORY DIRECTOR LAB BLOOD ORDER MALLY [address] [address] * (ABNORMAL) Lipid panel (2024 6:07 AM EST) [facility] HDL 44 mg/dL [facility] Comment: ? Interpretation <40 mg/dL: Low HDL cholesterol (major risk factor for CHD) Greater than or equal to 60 mg/dL: High HDL cholesterol ( negative risk factor for CHD) HDL - cholesterol is affected by a number of factors, e.g. smoking, excerise, hormones, sex and age. CHOLESTEROL 108 0 - 240 mg/dL [facility] TRIGLYCERIDES 72 30 - 160 mg/dL [facility] LDL 50 50 - 129 mg/dL [facility] Comment: LDL levels in terms of risk for coronary heart disease: <100 mg/dL: Optimal 100-129 mg/dL: Near or above optimal 130-159 mg/dL: Borderline high 160-189 mg/dL: High >190 mg/dL: Very High CARDIAC RISK RATIO 2.5(L) 3.4 - 5.0 C [facility] Blood 2024 6:07 AM EST 2024 6:13 AM EST Clarissa Bush NP LAB BLOOD ORDER MALLY [address] [address] * (ABNORMAL) Troponin (12/30/2024 3:24 PM EST) Only the most recent of3 resultswithin the time period is included. Troponin-T, HS Gen5 48(H) 0 - 14 ng/L [facility] Blood 12/30/2024 3:24 PM EST 12/30/2024 3:27 PM EST Harinder Mcleod MD LAB BLOOD ORDERABLES [address] [address] * XR Chest Portable (12/30/2024 11:55 AM EST) Anatomical Region Laterality Modality Chest Computed Radiogr aphy 12/30/2024 1:26 PM EST Impressions 12/30/2024 1:27 PM EST Small bilateral pleural effusions. Narrative 12/30/2024 1:27 PM EST XR CHEST PORTABLE Referring clinician's provided indication for this examination in [facility]: Dyspnea (Shortness of Breath) COMPARISON: None FINDINGS: Devices/Tubes/Lines: None. Lungs: Bibasilar atelectasis. No focal consolidation or pulmonary edema. Pleura: Small bilateral pleural effusions. No pneumothorax. Heart/Mediastinum: Normal heart and mediastinum. Bones/Soft Tissues: No significant abnormality. Procedure Note Clarissa Donovan MD - 12/30/2024 XR CHEST PORTABLE Referring clinician's provided indication for this examination in [facility]:Dyspnea (Shortness of Breath) COMPARISON: None FINDINGS: Devices/Tubes/Lines: None. Lungs: Bibasilar atelectasis. No focal consolidation or pulmonary edema. Pleura: Small bilateral pleural effusions. No pneumothorax. Heart/Mediastinum: Normal heart and mediastinum. Bones/Soft Tissues: No significant abnormality. IMPRESSION: Small bilateral pleural effusions. Harinder Mcleod MD IMG XR CH EST * Ethanol, blood (12/30/2024 11:40 AM EST) ETHANOL <10 <10 mg/dL [facility] Blood 12/30/2024 11:4 0 AM EST 12/30/2024 11:49 AM EST Harinder Mcleod MD LAB BLOOD ORDERABLES Performing Organization Address City/[facility] Co de Phone Number [address] [address] * (ABNORMAL) NT-proBNP (12/30/2024 11:40 AM EST) NT-PROBNP 2,879(H) 0 - 125 pg/mL [facility] Blood 12/30/2024 11:4 0 AM EST 12/30/2024 11:49 AM EST Harinder Mcleod MD LAB BLOOD ORDERABLES Performing Organization Address [facility] Co de Phone Number [address] [address] * ECG 12-LEAD (12/30/2024 9:49 AM EST) Ventricular Rate EKG/MIN 141 BPM [facility] Atrial Rate 85 BPM [facility] QRS Duration 90 ms [facility] QT Interval 328 ms [facility] QTC Interval 502 ms [facility] R Wave [place] -29 degrees [facility] T Wave [place] 48 degrees [facility] 12/30/2024 9:49 AM EST [...] MD ECG ORDER MALLY Performing Organization Address City/[facility] Co de Phone Number [facility] from Last 3 Months Advance Directives Documents on File Type Date Recorded Patient [employer] Healthcare Proxy 01/04/2025 2:52 PM * Full Code (Latest Code Status on File) Date Activated Date Inactivated Comments 12/30/2024 6:52 PM Question Answer Comments Code Status Confirmed With: Patient Care Teams Criminal Investigator Relationship Specialty Start Date End Date Renny Burton MD [address] [place] [address] [place] [address] PCP - General Internal Medicine 12/30/24 Additional Source Comments The information contained in this document represents components of the legal health record. It is not the complete legal health record.[facility]
--- OUTSIDE RECORDS SUMMARY | 2025-01-26 08:49 | XMS_ITS | Encounter Summary ---
Author Organization [facility] Address [phone] [facility] [place] [address] Care Team Providers Care Fitting Room Inspector Name Role Phone Renny Burton MD Primary Care Provider Reason for Visit * Reason Comments Shortness of Breath * Auth/Cert (Routine) Specialty Diagnoses / Procedures Referred By Contac t Referred To Contact Diagnoses Atrial fibrillation with RVR Acute heart failure, unspecified heart failure type Abnormal electrocardiogram (ECG) (EKG) Referral ID Status Reason Start Date Expiration Date Visits Re quested Visits Authorized [id number] 1 1 Encounter Details Date Type Department Care Team (Late st Contact Info) Description 12/30/2024 9:51 AM EST - 01/03/2025 12:48 PM [facility] Hospital Encounter [facility] Telemetry [facility] [address] [place] [address] Harinder Mcleod MD [address] [place] [id number] [email or web address] Williamson MD [address] [place] [id number] [email or web address] Jocelyne Beck MD [address] [place] [id number] [email or web address] Onelia Guy MD [address] [place] [address] April Martinez, DO [address] [place] [address] [email or web address] Discharge Disposition: Home or Self Care Social [...] y.o. male ( = 1960) Home Address: [address] [place] [address] (home) Preferred Language: Taiwanese Written Language: Taiwanese Needs Right Of Way Clearer: No Type of Advance Care Directive(s): Health [...] digoxin. He was started on Eliquis for [id number] score of 3. He was started on [...] will look into o/p resources like the [facility]. Alcoholic hepatitis Patient does have a [...] Your Medications These medications were sent to [facility]/pharmacy #[id number] - [place], [place] - [address] [facility] [address] [facility], [facility] [address] apixaban 5 mg tablet carvedilol 12.5 MG tablet digoxin 125 mcg tablet folic acid 1 MG tablet furosemide 40 MG tablet magnesium oxide 400 mg (241.3 mg elemental) tablet nicotine 21 mg/24 hr sacubitriL-valsartan 24-26 mg per tablet spironolactone 25 MG tablet thiamine 100 mg Tab tablet Hospital Care Team Service: Medicine Inpatient Attending: April Martinez DO Attending phys phone: Discharge Unit: [place] [id number] Primary Care Physician: Renny Burton MD [phone] Transitional Plan Scheduled appointments: Your Follow-Up Appointments Renny Burton MD Specialty: Internal Medicine Relationship: PCP - [address] [place] [address] Follow up in 1 week(s) Signed Discharge Orders (From admission, onward) Ordered 01/03/25 1124 Activity as tolerated 01/03/25 1124 Discharge diet Comments: Diet Regular 01/03/25 1124 Wound care: Last inpatient order Comments: Wound Care None 01/03/25 1124 For immediate questions regarding your hospitalization, your medications, and any pending test results please contact your PCP: Renny Burton MD at [phone]. Comments: For immediate questions regarding your hospitalization, your medications, and any pendingtest results please contact your PCP: Renny Burton MD at [phone]. 01/03/25 1121 Reason for not ordering smoking cessation medication(s) [...] * Smoking Cessation: Health Benefits: General Info (Taiwanese) * 9 Ways to Cut Back on Drinking: Quick List (Taiwanese) * Sacubitril/Valsartan Oral Tablet (SACUBITRIL/VALSARTAN - ORAL) (Taiwanese) * Spironolactone Oral Tablet (SPIRONOLACTONE - ORAL) (Taiwanese) * Atrial Fibrillation (Taiwanese) * Apixaban Oral Tablet (APIXABAN - ORAL) (Taiwanese) documented in this encounter Medications at Time [...] from the original note were not included. [facility] Cardiology Consultation Date: 01/03/2025 Referring Physician: No ref. provider found Primary Screw Machine Set Up Operator: YAMIL Reason for Initial Consultation: Atrial fibrillation [...] Social History Social History Narrative Works in [employer] Social History Tobacco Use Smoking status: Every [...] response of 141 bpm, possible anterior infarct, jbh-irgfhsqweqbef-wqoft Jorge-fib on telemetry- but rate controlled - Patient unable to tolerate metoprolol tartrate due to Raynaud's phenomena - Continue Lasix 40mg oral daily - continue low-dose Entresto and spironolactone - continue coreg 12.5mg bid - [id number] score of at least 3 - Will start patient on Eliquis 5 mg twice daily - I previously had a discussion with the patient regarding anticoagulation-risks explained including those of bleeding-hematuria, melena, hematochezia, hemoptysis, arthralgias, intracranial hemorrhage versus benefits of those of stroke prevention given patient is high risk given IEA4SL7-PJRq 2 score - Patient agreeable with commencing [...] concerns. Electronically signed by: David Barrett MD [facility] 01/03/2025 documented in this encounter H&P Notes * Clarissa Bush NP - 12/30/2024 6:27 PM EST HOSPITALIST ENGROSSER ADMIT NOTE ? Patient: Hector Gonzalez : 1960 PCP: Renny Burton MD Date of Admission: 12/30/2024 Attending Provider: Marv Soares MD History provided by: the patient Chief Complaint/Reason for Admission: Dyspnea edema History of Present Illness: This is a 63-year-old male with past medical history of ADD hypertension hyperlipidemia regular alcohol use and smoking who presented to [facility] with about a weeks worth of [...] fingers and toes from this, Raynaud's phenomenon, aviation boatswain's mate recommended digoxin loading Medical History: PMH PSH [...] of around 30%, avoid calcium channel gene, aviation boatswain's mate recommended digoxin loading which we will continue overnight EKG showed possible anterior infarct age indeterminate Plan will institute recommendations as per cardiology, order formal echocardiogram, cardiac monitor technician, continue digoxin, cardiac monitor technician, check labs including TSH, electrolytes I will [...] 2 notes is shown. * Mary Guardado, [facility] - 01/01/2025 2:20 PM ESTAssociated Order(s): IP [...] and new onset A-fib. Pt lives in [place] with his and adult child with special [...] daughter and continues the conversation with this technical publications writer. Pt alerts this technical publications writer that I quit I'm not drinking again. He states he has never used any meetings, group or philosophy to stop drinking I just quit cold turkey. Pt is very concerned about what is happening with his heart, and he is having difficulty feeling that alcohol use has anything to do with this, especially one week out. This technical publications writer reminded him his symptoms did not just [...] (ex.fever, cough, diarrhea,or any infectious process): NA Bacteriology Research Assistant: [x]Yes []No If yes, Cardiac Rhythm: afib Reason for Bacteriology Research Assistant: Current Mental Status: AOx4 Current Ambulation Status: unknown in ED IV Access: [x]Yes []No Field IV Present: []Yes [x]No History of Violence: []Yes [x]No []Unknown Fall Risk: [x]Yes []No Patient belongings inventoried []Yes [x]No Patient belongings stored in the Security closet []Yes [x]No ED Nurse Phone Number: [phone] ED Summary of Care: EKG, CXR, labs, bedside US, cardiology consult, medicated per JAN. Trops elevating, Pro BNP elevated. CIWA 7. Pt had adverse reaction to metoprolol- developed Reynauds. Submitted by: Meghna Castellano RN * Meghna Castellano RN - 12/30/2024 2:05 PM EST ED Nursing Progress Note aviation boatswain's mate at bedside doing US. * Meghna Castellano [...] cough, fevers or any other respiratory symptoms. Yoga Coordinator/ox4, speaking full sentences, tachypneac, reports dyspnea on [...] ms QTC Interval 502 ms R Wave [place] -29 degrees T Wave [place] 48 degrees Troponin Specimen: Blood Result Value [...] 50 mg Oral GivenMeghna Castellano RN -- [facility] Assessment and Plan: 63-year-old male here for [...] digoxin. He was started on Eliquis for [id number] score of 3. He was started on [...] will look into o/p resources like the [facility]. Alcoholic hepatitis Patient does have a [...] around 30%. Patient started on anticoagulation given YLT6LN1-YAQf score of 3. He tolerated coreg 3.125mg -Will continue with digoxin 0.125 mg daily -Continue to monitor on telemetry. -Follow-up formal echocardiogram. - Titrate Coreg for rate control -Continue apixaban 5 mg twice daily -rpt dig level documented in this encounter Plan of Treatment Upcoming Encounters Date Type Department Care Team (Late st Contact Info) Description 02/02/2025 2:40 PM EST Office Visit [facility] [address] [place] [address] [address] [place] [address] David Barrett MD [address] [place] [email or web address] documented as of this encounter Procedures Procedure [...] EST) DIGOXIN 1.0 0.9 - 2.0 ng/mL [facility] Blood 01/03/2025 7:07 AM EST 01/03/2025 7:19 AM EST April Martinez DO LAB BLOOD ORDERABL ES [facility] [address] [place] [address] * NC Myocardial Perfusion Pharmacologic Stress Multiple [...] separately. Please refer to that report in [facility]. Narrative 01/02/2025 2:37 PM EST Dictate modality [...] separately. Please refer to that report in [facility]. COMPARISON: None. FINDINGS: Imaging Findings Myocardial Perfusion [...] reportedseparately. Please refer to that report in [facility]. COMPARISON: None. FINDINGS: Imaging Findings Myocardial Perfusion [...] reportedseparately. Please refer to that report in [facility]. David Barrett MD CV NM CARDIAC * NC Stress Result for Nuclear Stress Test (01/02/2025 12:13 PM EST) Max Predicted Heart Rate 154 bpm [facility] Max BP Systolic 130 mmHg [facility] Max BP Diastolic 80 mmHg [facility] Max HR 164 BPM [facility] Resting HR 111 BPM [facility] Resting BP Systolic 122 mmHg [facility] Resting BP Diastolic 80 mmHg [facility] Peak METS 1.0 METS [facility] Peak HR 117 BPM [facility] Peak BP Systolic 130 mmHg [facility] Peak BP Diastolic 80 mmHg [facility] Anatomical Region Laterality Modality Heart Other [...] by injection of Tc99m Sestamibi by Lauryn certified surgical technologist. Test done as a pharmacologic test due [...] predicted heart rate. Rate pressure product was [id number]. David Barrett MD CV [facility] CARDIAC * (ABNORMAL) Basic metabolic panel (01/02/2025 5:17 AM EST) SODIUM 138 133 - 146 mmol/L [facility] CHLORIDE 101 96 - 108 mmol/L [facility] POTASSIUM 4.4 3.3 - 5.1 mmol/L [facility] CO2 26 21 - 35 mmol/L [facility] BUN 16 6 - 19 mg/dL [facility] CREATININE 0.90 0.5 - 1.5 mg/dL [facility] GLUCOSE 101(H) 70 - 99 mg/dL [facility] CALCIUM 8.2(L) 8.4 - 10.3 mg/dL [facility] EGFR 94 >59 mL/min/1.7 3m2 [facility] Comment:Estimated glomerular filtration rate calculated using the CKD-EPI refit equation. ANION GAP 15 10 - 20 mmol/L [facility] Blood 01/02/2025 5:17 AM EST 01/02/2025 6:15 AM EST April Martinez DO LAB BLOOD ORDERABL ES Performing Organization Address City/State/[facility] Co de Phone Number [address] [phone] * CBC (01/02/2025 5:17 AM EST) WBC 7.19 4.00 - 11.00 K/uL [facility] RBC 4.98 4.50 - 5.90 M/uL [facility] HGB 15.2 13.5 - 17.5 g/dL [facility] HCT 46.8 41.0 - 53.0 % [facility] PLT 237 150 - 450 K/uL [facility] MCV 94.0 80.0 - 100.0 [facility] MCH 30.5 27.0 - 31.0 pg [facility] MCHC 32.5 32.0 - 36.0 g/dL [facility] RDW 13.3 11.5 - 14.5 % [facility] MPV 10.8 8.4 - 12.0 [facility] NRBC 0.00 0.00 /100 WBCs [facility] ABSOLUTE NRBC 0.00 0.00 K/uL [facility] Blood 01/02/2025 5:17 AM EST 01/02/2025 6:15 AM EST April Martinez DO LAB BLOOD ORDERABL ES [address] [address] * TTE COMPREHENSIVE (01/01/2025 2:47 [...] There is mild leaflet thickening. There is deiy-yh-kinxxebz aortic stenosis. The peak and mean aortic [...] ALKALINE PHOSPHATASE 116 39 - 117 U/L [facility] TOTAL BILIRUBIN 0.4 0.0 - 1.2 mg/dL [facility] DIRECT BILIRUBIN <0.2 0 - 0.3 mg/dL [facility] Bilirubin (Indirect) NOT CALCULATED 0 - 1.5 mg/dL [facility] AST 96(H) 0 - 37 U/L [facility] ALT 142(H) 0 - 40 U/L [facility] TOTAL PROTEIN 5.3(L) 6.5 - 8.0 g/dL [facility] ALBUMIN 3.2(L) 3.9 - 4.8 g/dL [facility] GLOBULIN 2.1 1 - 4.8 g/dL [facility] A/G Ratio 1.52 1.00 - 4.80 RATIO [facility] Blood 01/01/2025 5:33 AM EST 01/01/2025 6:19 AM EST Onelia Guy MD LAB BLOOD ORDERABLES Performing Organization Address City/State/[facility] Co de Phone Number [address] [address] * CBC (01/01/2025 5:33 AM EST) WBC 8.18 4.00 - 11.00 K/uL [facility] RBC 4.86 4.50 - 5.90 M/uL [facility] HGB 15.0 13.5 - 17.5 g/dL [facility] HCT 45.2 41.0 - 53.0 % [facility] PLT 230 150 - 450 K/uL [facility] MCV 93.0 80.0 - 100.0 fL [facility] MCH 30.9 27.0 - 31.0 pg [facility] MCHC 33.2 32.0 - 36.0 g/dL [facility] RDW 13.2 11.5 - 14.5 % [facility] MPV 11.0 8.4 - 12.0 fL [facility] NRBC 0.00 0.00 /100 WBCs [facility] ABSOLUTE NRBC 0.00 0.00 K/uL [facility] Blood 01/01/2025 5:33 AM EST 01/01/2025 6:19 AM EST Onelia Guy MD LAB BLOOD ORDERABLES [address] [address] * (ABNORMAL) Basic metabolic panel (01/01/2025 5:33 AM EST) SODIUM 136 133 - 146 mmol/L [facility] CHLORIDE 100 96 - 108 mmol/L [facility] POTASSIUM 4.0 3.3 - 5.1 mmol/L [facility] CO2 25 21 - 35 mmol/L [facility] BUN 17 6 - 19 mg/dL [facility] CREATININE 0.80 0.5 - 1.5 mg/dL [facility] GLUCOSE 107(H) 70 - 99 mg/dL [facility] CALCIUM 8.3(L) 8.4 - 10.3 mg/dL [facility] EGFR 98 >59 mL/min/1.7 3m2 [facility] Comment:Estimated glomerular filtration rate calculated using the CKD-EPI refit equation. ANION GAP 15 10 - 20 mmol/L [facility] Blood 01/01/2025 5:33 AM EST 01/01/2025 6:19 AM EST Onelia Guy MD LAB BLOOD ORDERABLES [address] [address] * Sodium, random urine (2024 8:00 AM EST) URINE SODIUM <20 mmol/L [facility] Urine (Urine) 2024 8:0 0 AM EST 2024 10:30 AM EST Clarissa Bush ENGROSSER URINE ORDERABLE S [address] [address] * Osmolality, Random Urine (2024 8:00 AM EST) URINE OSMOLALITY 249 mOsm/kg water [facility] Urine (Urine) 2024 8:0 0 AM EST 2024 10:30 AM EST Clarissa Lyn Rachelle ENGROSSER URINE ORDERABLE S Performing Organization Address [facility] Co de Phone Number [address] [address] * Digoxin level (2024 6:07 AM EST) DIGOXIN 1.4 0.9 - 2.0 ng/mL [facility] 2024 6:07 AM EST 2024 6:13 AM EST Clarissa Farrisperance ENGROSSER LAB BLOOD ORDER MALLY Performing Organization Address [facility] de Phone Number [address] [address] * (ABNORMAL) Lipid panel (2024 6:07 AM EST) HDL 44 mg/dL [facility] Comment: ? Interpretation <40 mg/dL: Low HDL cholesterol (major risk factor for CHD) Greater than or equal to 60 mg/dL: High HDL cholesterol ( negative risk factor for CHD) HDL - cholesterol is affected by a number of factors, e.g. smoking, excerise, hormones, sex and age. CHOLESTEROL 108 0 - 240 mg/dL [facility] TRIGLYCERIDES 72 30 - 160 mg/dL [facility] LDL 50 50 - 129 mg/dL [facility] Comment: LDL levels in terms of risk for coronary heart disease: <100 mg/dL: Optimal 100-129 mg/dL: Near or above optimal 130-159 mg/dL: Borderline high 160-189 mg/dL: High >190 mg/dL: Very High CARDIAC RISK RATIO 2.5(L) 3.4 - 5.0 C [facility] Blood 2024 6:07 AM EST 2024 6:13 AM EST Clarissa Ferminance ENGROSSER LAB BLOOD ORDER MALLY [address] [address] * Hepatitis B core antibody, total (2024 6:07 AM EST) HEP B CORE AB, TOT NON-REACTI VE NON-REACTI VE [facility] Blood 2024 6:07 AM EST 2024 6:13 AM EST Clarissa Bush ENGROSSER LAB BLOOD ORDER MALLY Performing Organization Address City/[facility]/ZIP Co de Phone Number [address] [address] * Hepatitis B surface antigen (2024 6:07 AM EST) HBV SURFACE ANTIGEN NON-REACTI VE NON-REACTI VE [facility] Blood 2024 6:07 AM EST 2024 6:13 AM EST Clarissa Bush ENGROSSER LAB BLOOD ORDER MALLY Performing Organization Address City/[facility]/ZIP Co de Phone Number [address] [address] * Hepatitis C antibody, qualitative (2024 6:07 AM EST) HCV NON-REACTIV E NON-REACTI VE [facility] Blood 2024 6:07 AM EST 2024 6:13 AM EST Clarissa Ferminance ENGROSSER LAB BLOOD ORDER MALLY Performing Organization Address City/[facility]/ZIP Co de Phone Number [address] [address] * (ABNORMAL) Osmolality, serum (2024 6:07 AM EST) OSMOLALITY 279(L) 289 - 308 mOsm/kg water [facility] Blood 2024 6:07 AM EST 2024 6:13 AM EST Clarissa Bush ENGROSSER LAB BLOOD ORDER MALLY Performing Organization Address City/State/[facility] Co de Phone Number [address] [address] * (ABNORMAL) Comprehensive metabolic panel (2024 6:07 AM EST) SODIUM 131(L) 133 - 146 mmol/L [facility] POTASSIUM 4.9 3.3 - 5.1 mmol/L [facility] CHLORIDE 96 96 - 108 mmol/L [facility] CO2 25 21 - 35 mmol/L [facility] BUN 23(H) 6 - 19 mg/dL [facility] CREATININE 1.10 0.5 - 1.5 mg/dL [facility] GLUCOSE 112(H) 70 - 99 mg/dL [facility] ALBUMIN 3.2(L) 3.9 - 4.8 g/dL [facility] TOTAL PROTEIN 5.4(L) 6.5 - 8.0 g/dL [facility] CALCIUM 8.6 8.4 - 10.3 mg/dL [facility] ALKALINE PHOSPHATASE 127(H) 39 - 117 U/L [facility] TOTAL BILIRUBIN 0.8 0.0 - 1.2 mg/dL [facility] AST 159(H) 0 - 37 U/L [facility] ALT 156(H) 0 - 40 U/L [facility] GLOBULIN 2.2 1 - 4.8 g/dL [facility] EGFR 74 >59 mL/min/1.7 3m2 [facility] Comment:Estimated glomerular filtration rate calculated using the CKD-EPI refit equation. ANION GAP 15 10 - 20 mmol/L [facility] Blood 2024 6:07 AM EST 2024 6:13 AM EST Clarissa Bush ENGROSSER LAB BLOOD ORDER MALLY [facility] [address] [place] [address] * (ABNORMAL) CBC and differential (2024 6:07 AM EST) WBC 9.35 4.00 - 11.00 K/uL [facility] RBC 4.40(L) 4.50 - 5.90 M/uL [facility] HGB 13.6 13.5 - 17.5 g/dL [facility] HCT 39.9(L) 41.0 - 53.0 % [facility] PLT 217 150 - 450 K/uL [facility] MCV 90.7 80.0 - 100.0 fL [facility] MCH 30.9 27.0 - 31.0 pg [facility] MCHC 34.1 32.0 - 36.0 g/dL [facility] RDW 13.1 11.5 - 14.5 % [facility] MPV 10.7 8.4 - 12.0 fL [facility] NRBC 0.00 0.00 /100 WBCs [facility] ABSOLUTE NRBC 0.00 0.00 K/uL [facility] DIFF METHOD Auto [facility] NEUTS 70.3 48.0 - 76.0 % [facility] LYMPHS 16.5(L) 18.0 - 41.0 % [facility] MONOS 11.9(H) 4.0 - 11.0 % [facility] EOS 0.6 0.0 - 5.0 % [facility] BASOS 0.4 0.0 - 1.5 % [facility] Granulocytes, immature (%) 0.3 0.0 - 0.9 % [facility] ABSOLUTE NEUTS 6.57 1.92 - 7.60 K/uL [facility] ABSOLUTE LYMPHS 1.54 0.72 - 4.10 K/uL [facility] ABSOLUTE MONOS 1.11(H) 0.16 - 1.10 K/uL [facility] ABSOLUTE EOS 0.06 0.00 - 0.50 K/uL [facility] ABSOLUTE BASOS 0.04 0.00 - 0.15 K/uL [facility] Granulocytes, immature 0.03 0.00 - 0.09 K/uL [facility] Blood 2024 6:07 AM EST 2024 6:13 AM EST Clarissa Bush ENGROSSER LAB BLOOD ORDER MALLY Performing Organization Address City/[facility] Co de Phone Number [address] [address] * Phosphorus (2024 6:07 AM EST) PHOSPHORUS 4.1 2.7 - 4.5 mg/dL [facility] Blood 2024 6:07 AM EST 2024 6:13 AM EST Clarissa Ferminance ENGROSSER LAB BLOOD ORDER MALLY Performing Organization Address [facility] Co ar Phone Number [address] [address] * TSH (2024 6:07 AM EST) TSH 2.60 0.27 - 4.20 uIU/mL [facility] Blood 2024 6:07 AM EST 2024 6:13 AM EST Clarissa Bush ENGROSSER LAB BLOOD ORDER MALLY Performing Organization Address City/[facility]/ZIP Co de Phone Number [address] [address] * Magnesium (2024 6:07 AM EST) MAGNESIUM 1.6 1.6 - 2.6 mg/dL [facility] Blood 2024 6:07 AM EST 2024 6:13 AM EST Clarissa Ferminance ENGROSSER LAB BLOOD ORDER MALLY Performing Organization Address City/[facility]/ZIP Co de Phone Number [address] [address] * (ABNORMAL) Troponin (12/30/2024 3:24 PM EST) Troponin-T, HS Gen5 48(H) 0 - 14 ng/L [facility] Blood 12/30/2024 3:24 PM EST 12/30/2024 3:27 PM EST Harinder Mcleod MD LAB BLOOD ORDERABLES [address] [address] * (ABNORMAL) Troponin (12/30/2024 12:41 PM EST) Troponin-T, HS Gen5 42(H) 0 - 14 ng/L [facility] Blood 12/30/2024 12:4 1 PM EST 12/30/2024 1:00 PM EST Harinder Mcleod MD LAB BLOOD ORDERABLES [address] [address] * XR Chest Portable (12/30/2024 11:55 AM EST) Anatomical Region Laterality Modality Chest Computed Radiogr aphy 12/30/2024 1:26 PM EST Impressions 12/30/2024 1:27 PM EST Small bilateral pleural effusions. Narrative 12/30/2024 1:27 PM EST XR CHEST PORTABLE Referring clinician's provided indication for this examination in [facility]: Dyspnea (Shortness of Breath) COMPARISON: None FINDINGS: [...] 11:40 AM EST) ETHANOL <10 <10 mg/dL [facility] Blood 12/30/2024 11:4 0 AM EST 12/30/2024 11:49 AM EST Harinder Mcleod MD LAB BLOOD ORDERABLES [address] [address] * (ABNORMAL) NT-proBNP (12/30/2024 11:40 AM EST) NT-PROBNP 2,879(H) 0 - 125 pg/mL [facility] Blood 12/30/2024 11:4 0 AM EST 12/30/2024 11:49 AM EST Harinder Mcleod MD LAB BLOOD ORDERABLES Performing Organization Address City/[facility]/ZIP Co de Phone Number [address] [address] * (ABNORMAL) Troponin (12/30/2024 11:40 AM EST) Troponin-T, HS Gen5 38(H) 0 - 14 ng/L [facility] Blood 12/30/2024 11:4 0 AM EST 12/30/2024 11:49 AM EST Harinder Mcleod MD LAB BLOOD ORDERABLES Performing Organization Address [facility] Co de Phone Number [address] [address] * Magnesium (12/30/2024 11:40 AM EST) MAGNESIUM 1.6 1.6 - 2.6 mg/dL [facility] Blood 12/30/2024 11:4 0 AM EST 12/30/2024 11:49 AM EST Harinder Mcleod MD LAB BLOOD ORDERABLES Performing Organization Address [facility] Phone Number [address] [address] * (ABNORMAL) LFTs (hepatic panel) (12/30/2024 11:40 AM EST) ALKALINE PHOSPHATASE 147(H) 39 - 117 U/L [facility] TOTAL BILIRUBIN 0.6 0.0 - 1.2 mg/dL [facility] DIRECT BILIRUBIN 0.3 0 - 0.3 mg/dL [facility] Bilirubin (Indirect) 0.3 0 - 1.5 mg/dL [facility] AST 95(H) 0 - 37 U/L [facility] ALT 116(H) 0 - 40 U/L [facility] TOTAL PROTEIN 6.4(L) 6.5 - 8.0 g/dL [facility] ALBUMIN 4.0 3.9 - 4.8 g/dL [facility] GLOBULIN 2.4 1 - 4.8 g/dL [facility] A/G Ratio 1.67 1.00 - 4.80 RATIO [facility] Blood 12/30/2024 11:4 0 AM EST 12/30/2024 11:49 AM EST Harinder Mcleod MD LAB BLOOD ORDERABLES Performing Organization Address City/[facility] Co ar Phone Number [address] [address] * (ABNORMAL) Basic metabolic panel (12/30/2024 11:40 AM EST) SODIUM 128(L) 133 - 146 mmol/L [facility] CHLORIDE 91(L) 96 - 108 mmol/L [facility] POTASSIUM 5.1 3.3 - 5.1 mmol/L [facility] CO2 22 21 - 35 mmol/L [facility] BUN 23(H) 6 - 19 mg/dL [facility] CREATININE 0.90 0.5 - 1.5 mg/dL [facility] GLUCOSE 146(H) 70 - 99 mg/dL [facility] CALCIUM 8.8 8.4 - 10.3 mg/dL [facility] EGFR 95 >59 mL/min/1.7 3m2 [facility] Comment:Estimated glomerular filtration rate calculated using the CKD-EPI refit equation. ANION GAP 20 10 - 20 mmol/L [facility] Blood 12/30/2024 11:4 0 AM EST 12/30/2024 11:49 AM EST Harinder Mcleod MD LAB BLOOD ORDERABLES [address] [address] * (ABNORMAL) CBC and differential (12/30/2024 11:40 AM EST) WBC 8.14 4.00 - 11.00 K/uL [facility] RBC 4.73 4.50 - 5.90 M/uL [facility] HGB 14.6 13.5 - 17.5 g/dL [facility] HCT 44.2 41.0 - 53.0 % [facility] PLT 237 150 - 450 K/uL [facility] MCV 93.4 80.0 - 100.0 fL [facility] MCH 30.9 27.0 - 31.0 pg [facility] MCHC 33.0 32.0 - 36.0 g/dL [facility] RDW 13.2 11.5 - 14.5 % [facility] MPV 11.0 8.4 - 12.0 fL [facility] NRBC 0.00 0.00 /100 WBCs [facility] ABSOLUTE NRBC 0.00 0.00 K/uL [facility] DIFF METHOD Auto [facility] NEUTS 72.8 48.0 - 76.0 % [facility] LYMPHS 15.8(L) 18.0 - 41.0 % [facility] MONOS 10.7 4.0 - 11.0 % [facility] EOS 0.2 0.0 - 5.0 % [facility] BASOS 0.4 0.0 - 1.5 % [facility] Granulocytes, immature (%) 0.1 0.0 - 0.9 % [facility] ABSOLUTE NEUTS 5.92 1.92 - 7.60 K/uL [facility] ABSOLUTE LYMPHS 1.29 0.72 - 4.10 K/uL [facility] ABSOLUTE MONOS 0.87 0.16 - 1.10 K/uL [facility] ABSOLUTE EOS 0.02 0.00 - 0.50 K/uL [facility] ABSOLUTE BASOS 0.03 0.00 - 0.15 K/uL [facility] Granulocytes, immature 0.01 0.00 - 0.09 K/uL [facility] Blood 12/30/2024 11:4 0 AM EST 12/30/2024 11:49 AM EST Harinder Mcleod MD LAB BLOOD ORDERABLES Performing Organization Address City/State/[facility] Co de Phone Number [address] [address] * ECG 12-LEAD (12/30/2024 9:49 AM EST) Ventricular Rate EKG/MIN 141 BPM [facility] Atrial Rate 85 BPM [facility] QRS Duration 90 ms [facility] QT Interval 328 ms [facility] QTC Interval 502 ms [facility] R Wave [place] -29 degrees [facility] T Wave [place] 48 degrees [facility] 12/30/2024 9:49 AM EST [...] 0.125 mg, Oral, Daily, First dose on [facility] 12/31/24 at 1015 Given 01/03/2025 8:48 AM [...] 1 mg. 0845 (Given - Provider: Shante Cedeno RN) [...] 1310 (Given - Provider: Shante Cedeno RN) 0197 (Given - Provider: Lisa Carter) PRN Medication [...] Saab) documented in this encounter Care Teams Fitting Room Inspector Relationship Specialty Start Date End Date Renny Burton MD [address] [place] [address] [address] [place] [address], [place] [address] PCP - General Internal Medicine 12/30/24 documented as of this encounter Additional Source Comments The information contained in this document represents components of the legal health record. It is not the complete legal health record.[facility]
--- OUTSIDE RECORDS SUMMARY | 2025-01-26 08:51 | XMS_ITS | Encounter Summary ---
Author Organization [facility] Address [phone] Formerly [facility] [place] [address] Care Team Providers Care Bank Officer Name Role Phone Renny Burton MD Primary Care Provider Encounter Details Date Type Department Care Team (Late st Contact Info) Description 12/30/2024 Procedure [facility] [address] [place] [address] Social History Tobacco Use Types Packs/Day Years [...] Description 02/02/2025 2:40 PM EST Office Visit [facility] [address] [place] [address] [address] [place] [address] David Barrett MD [address] [place] [place] [phone] documented as of this encounter Visit Diagnoses Not on filedocumented in this encounter Care Teams Bank Officer Relationship Specialty Start Date End Date Renny Burton MD [address] [place] [address] [address] [place] [address] PCP - General Internal Medicine 12/30/24 documented as of this encounter Additional Source Comments The information contained in this document represents components of the legal health record. It is not the complete legal health record.[facility]
== END 2025-01-26 08:59 | disposition home or self-care (01) ==
PROVIDERS: PCP Internal Medicine; Visit Provider Internal Medicine
DX: I48.91 Unspecified atrial fibrillation (principal)

== ENCOUNTER 2025-03-16 08:32 | Outpatient (AMB) | payer OTHER, SELFPAY ==
[2025-03-16 08:33] VITALS: BP 122/78; PULSE 67; O2SAT 94; BMI 24.9
--- NOTE | 2025-03-16 08:33 | A.OFFPC_ITS ---
Vital Signs 03/16/25 08:33 Height 6 ft 2 in Weight 194 lb 2 oz BMI 24.9 BP 122/78 Blood Pressure Location Lt brachial Position Sitting Pulse 67 Pulse Source Pulse Oximeter Pulse Oximetry (%) 94 Oxygen Delivery Method Room Air Intake Visit Reasons: SAMANTHA Dr Burton/ 3 month f/u Supervisor Case Loading Required: No Accompanied by: Self / Same As Patient Allergies No Known Allergies Allergy (Verified 03/16/25 08:53) Medication List - Last Reconciled 03/16/25 by ALEXANDRIA Vega apixaban (Eliquis) 5 mg PO BID carvedilol 12.5 mg PO BID dextroamphetamine sulfate 10 mg PO DAILY digoxin 0.125 mg PO DAILY folic acid 1 mg PO DAILY furosemide 20 mg PO DAILY magnesium oxide 400 mg PO DAILY nicotine topical DAILY sacubitril-valsartan 24-26 mg (Entresto) 1 tab PO BID spironolactone 12.5 mg PO DAILY thiamine HCl (vitamin B1) 100 mg PO DAILY Tobacco use date assessed: 03/16/25 Fall risk assessment: No Falls in past year Last assessed Fall Risk: 03/16/25 Dental Screening Dental Screen Date: 03/16/25 Did you have a dental visit in the last 12 months?: Yes Did you have a dental problem in the last 6 months where you did not have access to dental care?: No Was dental information given to patient?: Patient has dentist HPI SAMANTHA Dr Burton/ 3 month f/u HPI Details The patient is a 64-year-old male presenting with follow-up concerns for cardiovascular health and medication management. He was hospitalized on December 30 for atrial fibrillation, receiving cardioversion and since reports steady, self-monitored blood pressure. No repeated atrial fibrillation events confirmed, despite periodic sensations. He remains physically active, participating in walks and frequent hiking. The patient developed gout, associating exacerbations with dietary sweets and dehydration, noting flares since starting new medications. Elevated liver enzymes and high proBNP were noted in recent labs, linked potentially to historical alcohol use. The patient ceased alcohol intake before hospitalization and maintains abstinence, linking this to his past atrial fibrillation event. The patient is requesting for his FMLA form filled out to in case he is unable to go into work due to his heart issues He is asking for dextroxamphetamine sulfate to be refilled as well [facility], [facility] Medical History Elevated BP without diagnosis of hypertension Surgical History History of arthroscopy of right knee Family History Father No problems noted. Mother No problems noted. Family/Other Malignant hyperthermia Social History Housing: House Alcohol intake: current Alcohol intake frequency: a few times a week Alcohol type: beer Patient Tobacco Use Status: Current everyday Tobacco user Tobacco use type: Cigar (2-3 a day) e-Cigarette/Vaping Use: Never Used Second Hand Smoke Exposure: No service: No Current occupational status: employed Cognitive needs: No Hearing needs: No Vision needs: Yes Questionnaire PHQ-9 Over the last 2 weeks, how often have you been bothered by any of the following problems? 1. Little interest or pleasure in doing things: not at all 2. Feeling down, depressed, or hopeless: not at all 3. Trouble falling or staying asleep, or sleeping too much: not at all 4. Feeling tired or having little energy: not at all 5. Poor appetite or overeating: not at all 6. Feeling bad about yourself - or that you are a failure or have let yourself or your family down: not at all 7. Trouble concentrating on things, such as reading the newspaper or watching television: not at all 8. Moving or speaking so slowly that other people could have noticed. Or the opposite - being so fidgety or restless that you have been moving around a lot more than usual: not at all 9. Thoughts that you would be better off or of hurting yourself in some way : not at all Total score: 0 Depression Screening Interpretation: Negative Depression Screening Done: Yes Source: Developed by Drs. George Dela Cruz, Ana Stanley, Clarence Sifuentes and colleagues, with an educational binta from [employer]. Thrive Questionnaire Date Thrive assessed: 03/16/25 I am a: Patient What is your living situation today?: I have a steady place to live Within the past 12 months, did the food you bought not last and you didn't have the money to get more?: Never true Within the past 12 months, did you worry whether your food would run out before you got money to buy more?: Never true Do you have trouble paying for medicines?: No Do you have trouble getting transportation to medical appointments?: No Do you have trouble paying your heating and electricity bill?: No Do you have trouble taking care of your child, family member or friend?: No Do you have trouble with day-to-day activities such as bathing, preparing meals, shopping, managing finances, etc.?: No Are you currently unemployed and looking for a job?: No Are you interested in more education?: No Please select the resources that you would like help with: None Currently or been in a relationship where the following occur: No concerns reported THRIVE Score: 0 AUDIT C Alcohol Use Questionnaire (AUDIT-C) 1. How often do you have a drink containing alcohol?: 2-3 times a week 2. How many drinks containing alcohol do you have on a typical day when you are drinking?: 1 or 2 3. How often do you have six or more drinks on one occasion?: Never Total Score: 3 ANASTASIIA-7 AMB Questionnaire ANASTASIIA-7 Date ANASTASIIA - 7 assessed: 03/16/25 Feeling nervous, anxious, or on edge: 0 = Not at all Not being able to stop or control worryin = Not at all Worrying too much about different things: 0 = Not at all Trouble relaxin = Not at all Being so restless that it is hard to sit still: 0 = Not at all Becoming easily annoyed or irritable: 0 = Not at all Feeling afraid as if something awful might happen: 0 = Not at all Total ANASTASIIA-7 score (0-4 normal; 5-9 mild; 10-14 moderate; 15-21 severe): 0 Source: Developed by Drs. George Dela Cruz, Ana Stanley, Clarence Sifuentes and colleagues, with an educational binta from [employer]. Review of Systems Const Denies headache(s) Eyes Denies loss of vision ENT Denies vertigo, Denies dizziness, Denies headache(s) and Denies sore throat Card Denies chest pain, Denies leg edema and Denies lightheadedness Resp Denies cough, Denies hemoptysis and Denies wheezing GI Denies abdominal pain, Denies melena, Denies constipation, Denies diarrhea and Denies vomiting Denies dysuria, Denies urinary frequency and Denies urinary urgency Musc Denies arthralgias, Denies joint swelling, Denies numbness and Denies tingling Neuro Denies Abnormal speech present, Denies behavioral changes, Denies vertigo, Denies dizziness, Denies headache(s), Denies loss of vision, Denies memory loss, Denies numbness and Denies tingling Psych Denies anxiety, Denies behavioral changes, Denies depression, Denies memory loss and Denies panic attacks Antonio/Lymph Denies easy bleeding and Denies easy bruising Aller/Immun Denies wheezing Physical exam (Primary Care) Vital Signs: Last Vital Signs Pulse 67 03/16/25 08:33 BP 122/78 03/16/25 08:33 Pulse Ox 94 03/16/25 08:33 Oxygen Delivery Method Room Air 03/16/25 08:33 BMI result Body Mass Index 24.9 Tobacco/Smoking Status: Tobacco use Status Tobacco use date assessed 03/16/25 03/16/25 08:42 Patient Tobacco Use Status Current everyday Tobacco 03/16/25 08:42 Tobacco use type Cigar (2-3 a day) 03/16/25 08:42 e-Cigarette/Vaping Use Never Used 03/16/25 08:42 PHQ-9: PHQ-9 Score PHQ-9: Total score 0 03/16/25 08:43 Depression Screening Interpretation: Negative Thrive Assessment: Date of Thrive Assessment Date Thrive assessed 03/16/25 03/16/25 08:42 Currently or been in a relationship where the following occur: No concerns reported Const General: healthy appearing, no acute distress, alert and awake Nutritional Appearance: well nourished Orientation/consciousness: oriented to person, oriented to place and oriented to time HENMT Ears: TM's normal bilaterally General nose exam: Normal nasal mucous membranes and turbinates present Eyes Conjunctivae: conjunctivae normal Sclerae: sclerae normal Pupils: Equal, round and reactive pupils present Neck Neck: Yes no lymphadenopathy and Yes no JVD Thyroid: Thyroid normal Carotids: no bruits Resp Effort & Inspection: normal respiratory effort and not tachypneic Auscultation: no crackles, no rales, no rhonchi and no wheezes Cardio Rate: regular rate Rhythm: regular rhythm Heart sounds: no murmurs and normal S1 and S2 GI Palpation (GI): Soft to palpation, nontender, no hepatomegaly and no splenome hoa Auscultation: normal bowel sounds Skin General skin exam: no rashes or lesions noted and dry skin Neuro General: oriented to person, oriented to place and oriented to time Cranial nerves: Yes Equal, round and reactive pupils present Speech: No Abnormal speech present Gait exam (Neuro): Normal gait present Motor exam (neuro): no tremor noted Extrem Right upper extremity: full ROM Left upper extremity: full ROM Right lower extremity: full ROM; no edema Left lower extremity: full ROM; no edema Psych Mental Status: mental status grossly normal Speech and movement: Normal speech and movement present Affect: normal affect Attitude: cooperative Thought process: Normal thought process present Coding Level of Care Code Est Pt Level 4 (60469) Diagnoses Atrial fibrillation, unspecified type I48.91 Atrial fibrillation type: unspecified Hypertension, unspecified type I10 Hypertension type: unspecified Attention deficit hyperactivity disorder (ADHD), unspecified ADHD type F90.9 Attention deficit-hyperactivity disorder type: unspecified Gout of right foot, unspecified cause, unspecified chronicity M10.9 Gout site: foot Gout etiology: unspecified cause Chronicity: unspecified Laterality: right Heart failure, unspecified HF chronicity, unspecified heart failure type I50.9 Heart failure type: unspecified Heart failure chronicity: unspecified Elevated liver enzymes R74.8 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 Time Spent (min) 39 Assessment & Plan Assessment & Plan (1) Atrial fibrillation: Code(s): I48.91 - Unspecified atrial fibrillation Category: Medical Qualifiers: Atrial fibrillation type: unspecified Qualified Code(s): I48.91 - Unspecified atrial fibrillation (2) Hypertension: Code(s): I10 - Essential (primary) hypertension Category: Medical Qualifiers: Hypertension type: unspecified Qualified Code(s): I10 - Essential (primary) hypertension (3) ADHD: Code(s): F90.9 - Attention-deficit hyperactivity disorder, unspecified type Category: Medical Qualifiers: Attention deficit-hyperactivity disorder type: unspecified Qualified Code(s): F90.9 - Attention-deficit hyperactivity disorder, unspecified type (4) Gout: Code(s): M10.9 - Gout, unspecified Category: Medical Qualifiers: Gout site: foot Gout etiology: unspecified cause Chronicity: unspecified Laterality: right Qualified Code(s): M10.9 - Gout, unspecified (5) Heart failure: Code(s): I50.9 - Heart failure, unspecified Category: Medical Qualifiers: Heart failure type: unspecified Heart failure chronicity: unspecified Qualified Code(s): I50.9 - Heart failure, unspecified (6) Elevated liver enzymes: Code(s): R74.8 - Abnormal levels of other serum enzymes Category: Medical (7) Cardiomyopathy: Code(s): I42.9 - Cardiomyopathy, unspecified Category: Medical Qualifiers: Cardiomyopathy type: alcoholic Qualified Code(s): I42.6 - Alcoholic cardiomyopathy Plan During this visit, we addressed cardiovascular and medication management needs, especially for atrial fibrillation and hypertension. Abstinence from alcohol has correlated with fewer atrial fibrillation occurrences, indicating positive reinforcement of health status. Anticipated re-evaluation of liver function tests has been planned for March. We continue to apply a conservative management approach for potential gout episodes, leveraging adjusted dietary choices and improved hydration. Cardiac follow-up consultation is planned for July, adhering to stipulated monitoring protocols to best optimize cardiovascular health outcomes. - Regular physical activity: Daily walks and hiking. - Diet: Conscious reduction of processed foods; increased focus on whole foods including yogurt, berries, and oatmeal. - Hydration: Encouraged to increase fluid intake to counteract past dehydration effects and reduce gout occurrence. - Abstention from alcohol, noting significant behavior change initiated just prior to hospitalization. - Caffeine moderation: Recommended decrease from three daily cups to reduce potential atrial fibrillation triggers. - Regular blood pressure monitoring: Reports stable readings. - Scheduled follow-up with cardiology in July 2023 (Dr. Bocanegra). - Frequent lab assessments for liver function and electrolyte monitoring due to past elevated results. Patient was informed and verbally consented to the use of an ambient scribe for clinic note documentation during this visit. Orders: Orders Complete Blood Count Auto Diff 1 Month F90.9 - Attention-deficit hyperactivity disorder, unspecified type, I10 - Essential (primary) hypertension, I48.91 - Unspecified atrial fibrillation, R03.0 - Elevated blood-pressure reading, without diagnosis of hypertension Uric Acid 1 Month F90.9 - Attention-deficit hyperactivity disorder, unspecified type, I10 - Essential (primary) hypertension, I48.91 - Unspecified atrial fibrillation, R03.0 - Elevated blood-pressure reading, without diagnosis of hypertension B Type Natriuretic Peptide 1 Month F90.9 - Attention-deficit hyperactivity disorder, unspecified type, I10 - Essential (primary) hypertension, I48.91 - Unspecified atrial fibrillation, R03.0 - Elevated blood-pressure reading, without diagnosis of hypertension Comprehensive [place]. Panel Fast 1 Month F90.9 - Attention-deficit hyperactivity disorder, unspecified type, I10 - Essential (primary) hypertension, I48.91 - Unspecified atrial fibrillation, R03.0 - Elevated blood-pressure reading, without diagnosis of hypertension Lipid Panel 1 Month F90.9 - Attention-deficit hyperactivity disorder, unspecified type, I10 - Essential (primary) hypertension, I48.91 - Unspecified atrial fibrillation, R03.0 - Elevated blood-pressure reading, without diagnosis of hypertension Vitamin D 25-OH Total 1 Month F90.9 - Attention-deficit hyperactivity disorder, unspecified type, I10 - Essential (primary) hypertension, I48.91 - Unspecified atrial fibrillation, R03.0 - Elevated blood-pressure reading, without diagnosis of hypertension Glucose Fasting 1 Month F90.9 - Attention-deficit hyperactivity disorder, unspecified type, I10 - Essential (primary) hypertension, I48.91 - Unspecified atrial fibrillation, R03.0 - Elevated blood-pressure reading, without diagnosis of hypertension Hemoglobin A1c 1 Month F90.9 - Attention-deficit hyperactivity disorder, unspecified type, I10 - Essential (primary) hypertension, I48.91 - Unspecified atrial fibrillation, R03.0 - Elevated blood-pressure reading, without diagnosis of hypertension UA CC w/rflx Micro + Cult 1 Month F90.9 - Attention-deficit hyperactivity disorder, unspecified type, I10 - Essential (primary) hypertension, I48.91 - Unspecified atrial fibrillation, R03.0 - Elevated blood-pressure reading, without diagnosis of hypertension TSH reflex Free T4 1 Month F90.9 - Attention-deficit hyperactivity disorder, unspecified type, I10 - Essential (primary) hypertension, I48.91 - Unspecified atrial fibrillation, R03.0 - Elevated blood-pressure reading, without diagnosis of hypertension Medications: Refilled dextroamphetamine sulfate 10 mg PO DAILY 90 tabs 0RF Patient Instructions: - Continue regular blood pressure monitoring. - Maintain current medication regimen as prescribed. - Increase daily fluid intake to manage uric acid levels and prevent gout. - Limit caffeine to two cups per day. - Maintain alcohol abstinence to ensure cardiovascular health. - Report any recurrent atrial fibrillation symptoms. - Schedule lab work for liver function re-evaluation in March. - Anticipate follow-up with cardiology in July to ensure cardiac health stability.
== END 2025-03-16 09:29 | disposition home or self-care (01) ==
LOC: HO.HMCH 08:33
DX: I48.91 Unspecified atrial fibrillation (principal); I11.0 Hypertensive heart disease with heart failure; I50.9 Heart failure, unspecified; I42.6 Alcoholic cardiomyopathy; F90.9 Attention-deficit hyperactivity disorder, unspecified type; M10.9 Gout, unspecified; R74.8 Abnormal levels of other serum enzymes

== ENCOUNTER 2025-06-15 08:59 | Outpatient (AMB) | payer OTHER, SELFPAY ==
--- NOTE | 2025-06-15 09:03 | A.OFFPC_ITS ---
Vital Signs 06/15/25 09:05 Height 6 ft 2 in Weight 193 lb 2 oz BMI 24.8 BP 130/64 Blood Pressure Location Lt brachial Position Sitting Pulse 78 Pulse Source Pulse Oximeter Temp 97.1 F Temp Source Temporal Artery Scan Pulse Oximetry (%) 98 Oxygen Delivery Method Room Air Intake Visit Reasons: AFIB/ADHD/HTN Intake Note: Patient is here to follow up on Afib, ADHD, HTN. Genetic Scientist Required: No Delivery Director: Not Required per policy Accompanied by: Self / Same As Patient Allergies No Known Allergies Allergy (Verified 06/15/25 09:16) Medication List - Last Reconciled 06/15/25 by ALEXANDRIA Vega apixaban (Eliquis) 5 mg PO BID carvedilol 12.5 mg PO BID dextroamphetamine sulfate 10 mg PO DAILY digoxin 0.125 mg PO DAILY folic acid 1 mg PO DAILY furosemide 20 mg PO DAILY magnesium oxide 400 mg PO DAILY nicotine topical DAILY sacubitril-valsartan 24-26 mg (Entresto) 1 tab PO BID spironolactone 12.5 mg PO DAILY thiamine HCl (vitamin B1) 100 mg PO DAILY Tobacco use date assessed: 06/15/25 Fall risk assessment: No Falls in past year Last assessed Fall Risk: 06/15/25 Dental Screening Dental Screen Date: 03/16/25 HPI AFIB/ADHD/HTN HPI Details The patient is a 64-year-old male presenting for management of chronic conditions The patient reports a history of gout, with previous episodes affecting his toe and other areas, characterized by severe pain and swelling. He notes that dietary factors, such as refined sugar intake, can exacerbate symptoms, and he manages episodes by increasing water intake. Arthritis/inflammation is suspected in the patient's right thumb, with symptoms of mild pain and clicking in the joint, though it does not lock. The patient recent A1C puts him in the prediabetes range, with recommendations to reduce sugar and carbohydrate intake to prevent progression to diabetes. He is also advised to take vitamin D3 supplements due to low vitamin D levels, which may contribute to feelings of fatigue. The patient CBC shows anemia, with slightly low blood counts noted in recent labs. An iron panel, vitamin B12, and folate levels are planned for future evaluation to determine the cause. Hyperlipidemia is present, with LDL cholesterol levels slightly above the desired range for patients with heart issues. Dietary modifications are recommended to manage cholesterol levels, including reducing intake of high- cholesterol foods. The patient has a history of one episode of atrial fibrillation, with irregular heart rhythms, diagnosed few months ago. The patient was placed on apixaban 5 mg bid, digoxin, and carvedilol 12.5 bid. The patient reports that he stopped all his medication and is only taking his dextroamphetamine for ADHD about a month and a half because he did not like how the medications were making him feel. Reports that he has not feel any different after stopping the medications. Explained the risk of stroke vs heart attack due to a possible blood clot the patient. Urge the patient to reach out to cardiology to cardiology to see if he could safely get off the medications. The medications were reordered and the patient stated that he will restart the medications and reach back out to cardiology. He already has an appt with cardiology in July, but he will contact them before this appointment. Educated the patient to not take his ADHD medication for 4 days to get his apixaban time to be effect. The patient verbalized understanding. EKG done in office and showed sinus arrhythmia premature supraventricular complexes left axis deviation, RSR in V1 and V2. [facility] Medical History (Updated 06/15/25 @ 13:06 by ALEXANDRIA Vega) Atrial fibrillation Cardiomyopathy Gout Elevated BP without diagnosis of hypertension Surgical History History of arthroscopy of right knee Family History Father No problems noted. Mother No problems noted. Family/Other Malignant hyperthermia Social History Housing: House Alcohol intake: current Alcohol intake frequency: a few times a week Alcohol type: beer Patient Tobacco Use Status: Current everyday Tobacco user Tobacco use type: Cigar (2-3 a day) e-Cigarette/Vaping Use: Never Used Second Hand Smoke Exposure: Yes service: No Current occupational status: employed Cognitive needs: No Hearing needs: No Vision needs: Yes Questionnaire PHQ-9 Over the last 2 weeks, how often have you been bothered by any of the following problems? 1. Little interest or pleasure in doing things: not at all 2. Feeling down, depressed, or hopeless: not at all 3. Trouble falling or staying asleep, or sleeping too much: not at all 4. Feeling tired or having little energy: not at all 5. Poor appetite or overeating: not at all 6. Feeling bad about yourself - or that you are a failure or have let yourself or your family down: not at all 7. Trouble concentrating on things, such as reading the newspaper or watching television: not at all 8. Moving or speaking so slowly that other people could have noticed. Or the opposite - being so fidgety or restless that you have been moving around a lot more than usual: not at all 9. Thoughts that you would be better off or of hurting yourself in some way: not at all Total score: 0 Depression Screening Interpretation: Negative Depression Screening Done: Yes Source: Developed by Drs. George Dela Cruz, Ana Stanley, Clarence Sifuentes and colleagues, with an educational binta from [employer]. Thrive Questionnaire Date Thrive assessed: 06/15/25 I am a: Patient What is your living situation today?: I have a steady place to live Within the past 12 months, did the food you bought not last and you didn't have the money to get more?: Never true Within the past 12 months, did you worry whether your food would run out before you got money to buy more?: Never true Do you have trouble paying for medicines?: No Do you have trouble getting transportation to medical appointments?: No Do you have trouble paying your heating and electricity bill?: No Do you have trouble taking care of your child, family member or friend?: No Do you have trouble with day-to-day activities such as bathing, preparing meals, shopping, managing finances, etc.?: No Are you currently unemployed and looking for a job?: No Are you interested in more education?: No Please select the resources that you would like help with: None Currently or been in a relationship where the following occur: No concerns reported THRIVE Score: 0 AUDIT C Alcohol Use Questionnaire (AUDIT-C) 1. How often do you have a drink containing alcohol?: Never Total Score: 0 ANASTASIIA-7 AMB Questionnaire ANASTASIIA-7 Date ANASTASIIA - 7 assessed: 06/15/25 Feeling nervous, anxious, or on edge: 0 = Not at all Not being able to stop or control worryin = Not at all Worrying too much about different things: 0 = Not at all Trouble relaxin = Not at all Being so restless that it is hard to sit still: 0 = Not at all Becoming easily annoyed or irritable: 0 = Not at all Feeling afraid as if something awful might happen: 0 = Not at all Total ANASTASIIA-7 score (0-4 normal; 5-9 mild; 10-14 moderate; 15-21 severe): 0 Source: Developed by Drs. George Dela Cruz, Ana Stanley, Clarence Sifuentes and colleagues, with an educational binta from [employer]. Review of Systems Const Denies headache(s) Eyes Denies loss of vision ENT Denies vertigo, Denies dizziness, Denies headache(s) and Denies sore throat Card Denies chest pain, Denies leg edema and Denies lightheadedness Resp Denies cough, Denies hemoptysis and Denies wheezing GI Denies abdominal pain, Denies melena, Denies constipation, Denies diarrhea and Denies vomiting Denies dysuria, Denies urinary frequency and Denies urinary urgency Musc Reports arthralgias (right thumb), Reports joint swelling (right thumb), Denies numbness and Denies tingling Neuro Denies Abnormal speech present, Denies behavioral changes, Denies vertigo, Denies dizziness, Denies headache(s), Denies loss of vision, Denies memory loss, Denies numbness and Denies tingling Psych Denies anxiety, Denies behavioral changes, Denies depression, Denies memory loss and Denies panic attacks Antonio/Lymph Denies easy bleeding and Denies easy bruising Aller/Immun Denies wheezing Physical exam (Primary Care) Vital Signs: Last Vital Signs Temp 97.1 F 06/15/25 09:05 Pulse 78 06/15/25 09:05 BP 130/64 06/15/25 09:05 Pulse Ox 98 06/15/25 09:05 Oxygen Delivery Method Room Air 06/15/25 09:05 BMI result Body Mass Index 24.8 Tobacco/Smoking Status: Tobacco use Status Tobacco use date assessed 06/15/25 06/15/25 09:09 Patient Tobacco Use Status Current everyday Tobacco 06/15/25 09:09 Tobacco use type Cigar (2-3 a day) 06/15/25 09:09 e-Cigarette/Vaping Use Never Used 06/15/25 09:09 PHQ-9: PHQ-9 Score PHQ-9: Total score 0 06/15/25 12:37 Depression Screening Interpretation: Negative Thrive Assessment: Date of Thrive Assessment Date Thrive assessed 06/15/25 06/15/25 09:09 Currently or been in a relationship where the following occur: No concerns reported Const General: healthy appearing, no acute distress, alert and awake Nutritional Appearance: well nourished Orientation/consciousness: oriented to person, oriented to place and oriented to time HENMT Ears: TM's normal bilaterally General nose exam: Normal nasal mucous membranes and turbinates present Eyes Conjunctivae: conjunctivae normal Sclerae: sclerae normal Pupils: Equal, round and reactive pupils present Neck Neck: Yes no lymphadenopathy and Yes no JVD Thyroid: Thyroid normal Carotids: no bruits Resp Effort & Inspection: normal respiratory effort and not tachypneic Auscultation: no crackles, no rales, no rhonchi and no wheezes Cardio Rate: regular rate Rhythm: abnormal rhythm irregularly irregular Heart sounds: no murmurs and normal S1 and S2 GI Palpation (GI): Soft to palpation, nontender, no hepatomegaly and no splenomegaly Auscultation: normal bowel sounds General: Yes no CVA tenderness Back/Spine/Pelvis Back: no CVA tenderness Skin General skin exam: no rashes or lesions noted and dry skin Neuro General: oriented to person, oriented to place and oriented to time Cranial nerves: Yes Equal, round and reactive pupils present Speech: No Abnormal speech present Gait exam (Neuro): Normal gait present Motor exam (neuro): no tremor noted Extrem Right upper extremity: full ROM Left upper extremity: full ROM Right lower extremity: full ROM; no edema Left lower extremity: full ROM; no edema Psych Mental Status: mental status grossly normal Speech and movement: Normal speech and movement present Affect: normal affect Attitude: cooperative Thought process: Normal thought process present Office Procedures EKG [id number], Complete Coding Level of Care Code Est Pt Level 4 (31526) Diagnoses Hypertension, unspecified type I10 Hypertension type: unspecified Heart failure, unspecified HF chronicity, unspecified heart failure type I50.9 Heart failure chronicity: unspecified Heart failure type: unspecified 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 Atrial fibrillation, unspecified type I48.91 Atrial fibrillation type: unspecified Attention deficit hyperactivity disorder (ADHD), unspecified ADHD type F90.9 Attention deficit-hyperactivity disorder type: unspecified Gout of right foot, unspecified cause, unspecified chronicity M10.9 Chronicity: unspecified Gout etiology: unspecified cause Gout site: foot Laterality: right Prediabetes R73.03 Vitamin D deficiency E55.9 CPT Codes EKG - CPT: 56257-[id number], Complete ([id number]) Time Spent (min) 43 Assessment & Plan Assessment & Plan (1) Hypertension: Code(s): I10 - Essential (primary) hypertension Category: Medical Qualifiers: Hypertension type: unspecified Qualified Code(s): I10 - Essential (primary) hypertension Plan: Patient blood pressure was 130/64 in office. Patient has stopped his blood pressure medications. Reinforced low-salt diet. Discussed the importance of his medication due to his history of AFib and cardiomyopathy. Patient reports that he will start back medications that are pertaining to his AFib. Reordered carvedilol 12.5 mg b.i.d., digoxin 0.125 mg daily, and apixaban 5 mg b.i.d. (2) Heart failure: Code(s): I50.9 - Heart failure, unspecified Category: Medical Qualifiers: Heart failure chronicity: unspecified Heart failure type: unspecified Qualified Code(s): I50.9 - Heart failure, unspecified Plan: The patient has a history of heart failure BNP 377. Lung sound is clear and no edema noted. Denies shortness of breath. Patient has stopped his furosemide and Entresto 24-26 mg b.i.d., and spironolactone 12.5 mg daily. Patient is reporting that he we will only take the medication pertaining to his AFib. And, he will follow up with Cardiology to see if he could get off the medication safely (3) Cardiomyopathy: Code(s): I42.9 - Cardiomyopathy, unspecified Category: Medical Qualifiers: Cardiomyopathy type: alcoholic Qualified Code(s): I42.6 - Alcoholic cardiomyopathy Plan: The patient denies chest pain. No shortness a breath. He is currently not on any statin. He had stopped apixaban. Medication was reordered and the patient reports that he will start taking this medication again until he follow up with Cardiology. (4) Atrial fibrillation: Code(s): I48.91 - Unspecified atrial fibrillation Category: Medical Qualifiers: Atrial fibrillation type: unspecified Qualified Code(s): I48.91 - Unspecified atrial fibrillation Plan: Patient the history of AFib, 1 documented episode. He was started on apixaban 5 mg b.i.d., digoxin 0.125 mg daily and carvedilol 12.5 mg b.i.d. by Cardiology. Patient reports that he stopped taking his medication about a month and a half ago. Urged the patient to start that these medications and he agreed to start back on the medication until he follow up with Cardiology to see if he could safely get off the medications. (5) ADHD: Code(s): F90.9 - Attention-deficit hyperactivity disorder, unspecified type Category: Medical Qualifiers: Attention deficit-hyperactivity disorder type: unspecified Qualified Code(s): F90.9 - Attention-deficit hyperactivity disorder, unspecified type Plan: The patient is on dextroamphetamine 10 mg daily. Instructed the patient to not take this medication for 4 days until his apixaban is back to an effective range. Due to the risk of this medication increasing the risk of AFib. (6) Gout: Code(s): M10.9 - Gout, unspecified Category: Medical Qualifiers: Chronicity: unspecified Gout etiology: unspecified cause Gout site: foot Laterality: right Qualified Code(s): M10.9 - Gout, unspecified Plan: Patient complain of edema/pain in right thumb and clicking sound in the joint. The uric acid level was 5.7 on labs two months ago. He wants to hold off on the thumb xray for now because the pain is mild. Labs ordered to reassessed for gout. (7) Prediabetes: Code(s): R73.03 - Prediabetes Category: Medical Plan: The patient A1c is 6 % Discussed lifestyle modifications including dietary changes and physical activity We will recheck A1c in 3 months (8) Vitamin D deficiency: Code(s): E55.9 - Vitamin D deficiency, unspecified Category: Medical Plan: Vitamin-D level 11 Encouraged vitamin D3 2000 IU OTC daily Plan Follow up in 3 months Orders: Orders B Type Natriuretic Peptide 3 Months F90.9 - Attention-deficit hyperactivity disorder, unspecified type, I10 - Essential (primary) hypertension, I42.6 - Alcoholic cardiomyopathy, I48.91 - Unspecified atrial fibrillation, I50.9 - Heart failure, unspecified, M10.9 - Gout, unspecified, R03.0 - Elevated blood- pressure reading, without diagnosis of hypertension, R74.8 - Abnormal levels of other serum enzymes Lipid Panel 3 Months F90.9 - Attention-deficit hyperactivity disorder, unspecified type, I10 - Essential (primary) hypertension, I42.6 - Alcoholic cardiomyopathy, I48.91 - Unspecified atrial fibrillation, I50.9 - Heart failure, unspecified, M10.9 - Gout, unspecified, R03.0 - Elevated blood-pressure reading, without diagnosis of hypertension, R74.8 - Abnormal levels of other serum enzymes Comprehensive [place]. Panel Fast 3 Months F90.9 - Attention-deficit hyperactivity disorder, unspecified type, I10 - Essential (primary) hypertension, I42.6 - Alcoholic cardiomyopathy, I48.91 - Unspecified atrial fibrillation, I50.9 - Heart failure, unspecified, M10.9 - Gout, unspecified, R03.0 - Elevated blood- pressure reading, without diagnosis of hypertension, R74.8 - Abnormal levels of other serum enzymes Vitamin D 25-OH Total 3 Months F90.9 - Attention-deficit hyperactivity disorder, unspecified type, I10 - Essential (primary) hypertension, I42.6 - Alcoholic cardiomyopathy, I48.91 - Unspecified atrial fibrillation, I50.9 - Heart failure, unspecified, M10.9 - Gout, unspecified, R03.0 - Elevated blood- pressure reading, without diagnosis of hypertension, R74.8 - Abnormal levels of other serum enzymes IRON PROFILE 3 Months F90.9 - Attention-deficit hyperactivity disorder, unspecified type, I10 - Essential (primary) hypertension, I42.6 - Alcoholic cardiomyopathy, I48.91 - Unspecified atrial fibrillation, I50.9 - Heart failure, unspecified, M10.9 - Gout, unspecified, R03.0 - Elevated blood-pressure reading, without diagnosis of hypertension, R74.8 - Abnormal levels of other serum enzymes Hemoglobin A1c 3 Months F90.9 - Attention-deficit hyperactivity disorder, unspecified type, I10 - Essential (primary) hypertension, I42.6 - Alcoholic cardiomyopathy, I48.91 - Unspecified atrial fibrillation, I50.9 - Heart failure, unspecified, M10.9 - Gout, unspecified, R03.0 - Elevated blood-pressure reading, without diagnosis of hypertension, R74.8 - Abnormal levels of other serum enzymes TSH reflex Free T4 3 Months F90.9 - Attention-deficit hyperactivity disorder, unspecified type, I10 - Essential (primary) hypertension, I42.6 - Alcoholic cardiomyopathy, I48.91 - Unspecified atrial fibrillation, I50.9 - Heart failure, unspecified, M10.9 - Gout, unspecified, R03.0 - Elevated blood-pressure reading, without diagnosis of hypertension, R74.8 - Abnormal levels of other serum enzymes UA CC w/rflx Micro + Cult 3 Months F90.9 - Attention-deficit hyperactivity disorder, unspecified type, I10 - Essential (primary) hypertension, I42.6 - Alcoholic cardiomyopathy, I48.91 - Unspecified atrial fibrillation, I50.9 - Heart failure, unspecified, M10.9 - Gout, unspecified, R03.0 - Elevated blood- pressure reading, without diagnosis of hypertension, R74.8 - Abnormal levels of other serum enzymes Complete Blood Count Auto Diff 3 Months F90.9 - Attention-deficit hyperactivity disorder, unspecified type, I10 - Essential (primary) hypertension, I42.6 - Alcoholic cardiomyopathy, I48.91 - Unspecified atrial fibrillation, I50.9 - Heart failure, unspecified, M10.9 - Gout, unspecified, R03.0 - Elevated blood- pressure reading, without diagnosis of hypertension, R74.8 - Abnormal levels of other serum enzymes Uric Acid 3 Months F90.9 - Attention-deficit hyperactivity disorder, unspecified type, I10 - Essential (primary) hypertension, I42.6 - Alcoholic cardiomyopathy, I48.91 - Unspecified atrial fibrillation, I50.9 - Heart failure, unspecified, M10.9 - Gout, unspecified, R03.0 - Elevated blood-pressure reading, without diagnosis of hypertension, R74.8 - Abnormal levels of other serum enzymes Vitamin B12 and Folate 3 Months F90.9 - Attention-deficit hyperactivity disorder, unspecified type, I10 - Essential (primary) hypertension, I42.6 - Alcoholic cardiomyopathy, I48.91 - Unspecified atrial fibrillation, I50.9 - Heart failure, unspecified, M10.9 - Gout, unspecified, R03.0 - Elevated blood- pressure reading, without diagnosis of hypertension, R74.8 - Abnormal levels of other serum enzymes AMB EKG-In Office Today I42.6 - Alcoholic cardiomyopathy, I50.9 - Heart failure, unspecified Medications: Refilled dextroamphetamine sulfate 10 mg PO DAILY 90 tabs 0RF
--- OUTSIDE RECORDS SUMMARY | 2025-06-15 09:03 | XMS_ITS | Patient Health Record ---
Author Organization [facility] Address [address] [place] [id number] Care Team Providers Care Planting Supervisor Name Role Phone Renny Burton MD Primary Care Provider Ashok Bennett Jr Unavailable [phone] Reason For Referral No Information Medications Medication SIG (Take, Route, Frequency, Duration) Notes Start Date End Date Status OsmoPrep 1.102-0.398 GM 32 tablets Orall y over two days as directed for 2 day(s) 01/11/2013 11/29/2024 Active Lovastatin 40mg Acti ve Dextroamphetamine Sulfate 10mg Active Atenolol 100mg Activ e hydroCHLOROthiazide Active Problems Problem Type SNOMED Code ICD Code Onset Dates Problem Status W/U Status Risk Notes Problem Screening for colon cancer (V76.51) Active confirmed Plan Of Treatment Future Test Test Name Order Date COLONOSCOPY 01/11/2013 Insurance Providers Payer Name Payer Address Payer Phone Subscriber Number Group Number Insured Name Patient Relationship to Insured Coverage Start Date Coverage End Date [facility] [address] [place] [address] [id number] REFUGIO SCHULTE Self - patient is the insured Medical (General) History Medical History History ICD Code HTN Elevated cholesterol Surgical History Surgery Date(Month/Year) knee surgery Hernia as a child Tendon surgery
--- OUTSIDE RECORDS SUMMARY | 2025-06-15 09:03 | XMS_ITS | Clinical Summary ---
Author Organization [facility] Address [address] [address] Phone Care Team Providers Care Operations Superintendent Name Role Phone Renny Burton MD Primary Care Provider Penny labojnathan Allergies No known active allergies Medications dextroamphetami ne sulfate 10 MG tablet Take 10 mg by mouth daily. 5 Active folic acid (FOLVITE) 1 MG tablet Take 1 tablet (1 mg total) by mouth daily. 30 tablet 5 Active furosemide (LASIX) 40 MG tablet Take 0.5 tablets (20 mg total) by mouth daily. 20 tablet 1 5 Active magnesium oxide (MAG-OX) 400 mg (241.3 mg elemental) tablet Take 1 tablet (400 mg total) by mouth daily. 30 tablet 5 Active spironolactone (ALDACTONE) 25 MG tablet Take 0.5 tablets (12.5 mg total) by mouth daily. 30 tablet 1 5 Active thiamine (VITAMIN B-1) 100 mg Tab tablet Take 1 tablet (100 mg total) by mouth daily. 30 tablet 5 Active apixaban (ELIQUIS) 5 mg tablet Take 1 tablet (5 mg total) by mouth 2 (two) times a day. 180 tablet 3 5 Active Additional Information Patient not taking.Reported on 05/03/2025 carvedilol (COREG) 12.5 MG tablet Take 1 tablet (12.5 mg total) by mouth 2 (two) times a day with meals. 180 tablet 3 5 Active digoxin (LANOXIN) 125 mcg tablet Take 1 tablet (0.125 mg total) by mouth daily. 90 tablet 3 5 Active sacubitriL-vals nancy (ENTRESTO) 24-26 mg per tablet Take 1 tablet by mouth 2 (two) times a day. 180 tablet 3 5 Active Active Problems Problem Noted Date Diagnosed Date [...] around 30%. Patient started on anticoagulation given [id number] score of 3. He tolerated coreg 3.125mg [...] around 30%. Patient started on anticoagulation given [id number] score of 3. - Will continue with [...] of around 30%, avoid calcium channel gene, quantitative researcher recommended digoxin loading which we will continue overnight EKG revealed A-fib, ventricular response rate of 141 bpm, possible anterior infarct age-indeterminate. TSH is 2.60 Dig level is 1.4 after load. Patient with increased heart rates in 140s with ambulation this morning. - Will continue with digoxin 0.125 mg daily -Continue to monitor on telemetry. -Follow-up formal echocardiogram. Patient started on anticoagulation given [id number] score of 3. -Continue apixaban 5 mg [...] of around 30%, avoid calcium channel gene, quantitative researcher recommended digoxin loading which we will continue overnight EKG showed possible anterior infarct age indeterminate Plan will institute recommendations as per cardiology, order formal echocardiogram, administrative services manager, continue digoxin, administrative services manager, check labs including TSH, electrolytes I will [...] Plan (01/02/2025 3:56 PM EST): Resolved. Presents tami with a mild hyponatremia with sodium of 128. Hyponatremia is likely multifactorial including lisinopril, use of beer and CHF. Sodium has corrected to 138. - Repeat labs in AM. Assessment & Plan (01/01/2025 6:26 PM EST): Presents tonrenetta with a mild hyponatremia with sodium of 128. Hyponatremia is likely multifactorial including lisinopril, use of beer and CHF. Sodium has corrected to 131 with treatment. - Repeat labs in AM. Assessment & Plan (2024 5:08 PM EST): Presents tami with a mild hyponatremia with sodium of [...] Encounters Date Type Department Care Team Description 05/03/2025 3:45 PM EDT Office Visit [facility] [address] [place] [address] [address] Floor, [address] [place] [address] Vipin Light MD Atrial fibrillation with RVR (Primary Dx) 04/13/2025 9:20 AM EDT - 04/13/2025 11:59 PM EDT Hospital Encounter [facility] [address] [place] [address] Loy Rizo NP Discharge Disposition: Home or Self Care 04/04/2025 9:08 AM EDT - 04/04/2025 11:59 PM EDT Hospital Encounter [facility] [address] [place] [address] Loy Rizo NP Discharge Disposition: Home or Self Care 04/04/2025 Transcribe Orders [facility] [address] [place] [address] Loy Rizo NP Atrial fibrillation, unspecified type (Primary Dx); Primary hypertension; Attention deficit hyperactivity disorder (ADHD), unspecified ADHD type; Elevated blood pressure reading without diagnosis of hypertension 03/23/2025 Refill [facility] [address] [place] [address] April Martinez, DO Med Change Request from Last 3 Months Family History Medical History Relation Comments Rheumatic fever Father Relation Status Comments Father Social History Tobacco Use Types Packs/Day Years Used Date Smoking Tobacco: Every Day Cigars Smokeless Tobacco: Never Alcohol Use Standard Drinks/Week Comments Not Currently 0 (1 standard drink = 0.6 oz [...] Recorded Sex Assigned at Not on file Legal Sex Male 9:04 AM EST Gender Identity Not on file Sexual Orientation Not on file Last Filed Vital Signs Vital Sign Reading Time Taken Comments Blood Pressure 160/80 05/03/2025 3:37 PM EDT Pulse 68 05/03/2025 3:37 PM EDT Temperature 36.6 C (97.9 F) 01/03/2025 11:49 AM EST Respiratory Rate 18 01/03/2025 11:49 AM EST Oxygen Saturation 98% 05/03/2025 3:37 PM EDT Inhaled Oxygen Concentration - - Weight 89.8 kg (198 lb) 05/03/2025 3:37 PM EDT Height 182.9 cm (6') 05/03/2025 3:37 PM EDT Body Mass Index 26.85 05/03/2025 3:37 PM EDT Plan of Treatment Upcoming Encounters Date Type Department Care Team (Late st Contact Info) Description 08/07/2025 9:00 AM EDT Office Visit [facility] [address] [place] [address] [address] Floor, [address] [place] [address] David Barrett MD [address] [place] [address] Health Maintenance Due Date Last Done Comments DEPRESSION SCREENING 1970 PNEUMOCOCCAL VACCINES (50+ years) (1 of 2 - PCV) 1977 COLOGUARD 2003 COLONOSCOPY 2003 COLORECTAL CANCER SCREENING 2003 FIT TEST 2003 FOBT 2003 SIGMOIDOSCOPY 2003 VIRTUAL COLONOSCOPY 2003 ZOSTER VACCINES (1 of 2) 2008 RSV VACCINE (1 - Risk 60-74 years 1-dose series) 2018 Adult Td,Tdap Booster 05/04/2021 05/04/2011 ABDOMINAL AORTIC ANEURYSM (AAA) SCREENING 2023 COVID-19 VACCINE ( season) 2024 BLOOD PRESSURE 11/02/2025 05/03/2025 CREATININE LEVEL 04/04/2026 04/04/2025, , 01/02/2025, Additional history exists POTASSIUM LEVEL 04/04/2026 04/04/2025, 01/27, 01/02/2025, Additional history exists SMOKING Hx and SMOKELESS TOBACCO SCREENING 05/03/2026 05/03/2025 SCREENING FOR DIABETES 04/04/2028 04/04/2025, 2024 LIPID PANEL 04/04/2030 04/04/2025, 2024 HEPATITIS C SCREENING Completed 2024 HEPATITIS A VACCINES Aged Out No long er eligible based on patient's age to complete this topic HIB VACCINES Aged Out No longer eligi ble based on patient's age to complete this topic MENINGOCOCCAL VACCINES (ACWY) Aged Out No longer eligible based on patient's age to complete this topic MENINGOCOCCAL VACCINES (B) Aged Out N o longer eligible based on patient's age to complete this topic Medical Devices Not on file Procedures Procedure Name Priority Date/Time Associated Diagnosis Comments URINALYSIS W/REFLEX URINE CULTURE Routine 04/13/2025 8:00 AM EDT Atrial fibrillation, unspecified type Primary hypertension Attention deficit hyperactivity disorder (ADHD), unspecified ADHD type Elevated blood pressure reading without diagnosis of hypertension NT-PROBNP Routine 04/04/2025 9:10 AM EDT Atrial fibrillation, unspecified type Primary hypertension Attention deficit hyperactivity disorder (ADHD), unspecified ADHD type Elevated blood pressure reading without diagnosis of hypertension CBC AND DIFFERENTIAL Routine 04/04/2025 9:10 AM EDT Atrial fibrillation, unspecified type Primary hypertension Attention deficit hyperactivity disorder (ADHD), unspecified ADHD type Elevated blood pressure reading without diagnosis of hypertension COMPREHENSIVE METABOLIC PANEL Routine 04/04/2025 9:10 AM EDT Atrial fibrillation, unspecified type Primary hypertension Attention deficit hyperactivity disorder (ADHD), unspecified ADHD type Elevated blood pressure reading without diagnosis of hypertension GLUCOSE, FASTING Routine 04/04/2025 9:10 AM EDT Atrial fibrillation, unspecified type Primary hypertension Attention deficit hyperactivity disorder (ADHD), unspecified ADHD type Elevated blood pressure reading without diagnosis of hypertension HEMOGLOBIN A1C Routine 04/04/2025 9:10 AM EDT Atrial fibrillation, unspecified type Primary hypertension Attention deficit hyperactivity disorder (ADHD), unspecified ADHD type Elevated blood pressure reading without diagnosis of hypertension LIPID PANEL Routine 04/04/2025 9:10 AM EDT Atrial fibrillation, unspecified type Primary hypertension Attention deficit hyperactivity disorder (ADHD), unspecified ADHD type Elevated blood pressure reading without diagnosis of hypertension TSH WITH REFLEX Routine 04/04/2025 9:10 AM EDT Atrial fibrillation, unspecified type Primary hypertension Attention deficit hyperactivity disorder (ADHD), unspecified ADHD type Elevated blood pressure reading without diagnosis of hypertension URIC ACID Routine 04/04/2025 9:10 AM EDT Atrial fibrillation, unspecified type Primary hypertension Attention deficit hyperactivity disorder (ADHD), unspecified ADHD type Elevated blood pressure reading without diagnosis of hypertension 25-OH VITAMIN D Routine 04/04/2025 9:10 AM EDT Atrial fibrillation, unspecified type Primary hypertension Attention deficit hyperactivity disorder (ADHD), unspecified ADHD type Elevated blood pressure reading without diagnosis of hypertension HEPATITIS C ANTIBODY, QUALITATIVE Routine 2024 6:07 AM EST from Last 3 Months or Most Recently Relevant to Health Maintenance Results * (ABNORMAL) Urinalysis w/reflex Urine Culture (04/13/2025 8:00 AM EDT) COLOR Yellow Yellow [facility] CLARITY Clear [facility] GLUCOSE Negative Negative [facility] BILI 1+(A) Negative [facility] KETONES Negative Negative [facility] SPECIFIC GRAVITY 1.020 1.005 - 1.030 [facility] BLOOD Negative Negative [facility] PH 6.5 5.0 - 8.0 [facility] Protein-UA Negative Negative [facility] NITRITE Negative Negative [facility] Leukocyte esterase, ur Negative Negative [facility] Urine (Urine) 04/13/2025 8:0 0 AM EDT 04/13/2025 9:24 AM EDT us Loy Rizo NAIL MAKING MACHINE SETTER URINE ORDERABLES Final Result Performing Organization Address City/[facility]/ZIP Co de Phone Number [address] [address] * (ABNORMAL) Glucose, fasting (04/04/2025 9:10 AM EDT) FASTING GLUCOSE 98(H) 70 - 95 mg/dL [facility] Blood 04/04/2025 9:10 AM EDT 04/04/2025 9:15 AM EDT us Loy Rizo NAIL MAKING MACHINE SETTER LAB BLOOD ORDERABLES F inal Result Performing Organization Address City/[facility]/ZIP Co de Phone Number [address] [address] * (ABNORMAL) Comprehensive metabolic panel (04/04/2025 9:10 AM EDT) SODIUM 136 133 - 146 mmol/L [facility] POTASSIUM 4.1 3.3 - 5.1 mmol/L [facility] CHLORIDE 102 96 - 108 mmol/L [facility] CO2 24 21 - 35 mmol/L [facility] BUN 17 6 - 19 mg/dL [facility] CREATININE 0.70 0.5 - 1.5 mg/dL [facility] GLUCOSE 102(H) 70 - 99 mg/dL [facility] ALBUMIN 4.0 3.9 - 4.8 g/dL [facility] TOTAL PROTEIN 7.1 6.5 - 8.0 g/dL [facility] CALCIUM 9.3 8.4 - 10.3 mg/dL [facility] ALKALINE PHOSPHATASE 80 39 - 117 U/L [facility] TOTAL BILIRUBIN 0.3 0.0 - 1.2 mg/dL [facility] AST 14 0 - 37 U/L [facility] ALT 11 0 - 40 U/L [facility] GLOBULIN 3.1 1 - 4.8 g/dL [facility] EGFR 102 >59 mL/min/1.7 3m2 [facility] Comment:Estimated glomerular filtration rate calculated using the CKD-EPI refit equation. ANION GAP 14 10 - 20 mmol/L [facility] Blood 04/04/2025 9:10 AM EDT 04/04/2025 9:15 AM EDT us Loy Rizo NAIL MAKING MACHINE SETTER LAB BLOOD ORDERABLES F inal Result [address] [address] * TSH with reflex (04/04/2025 9:10 AM EDT) TSH 1.37 0.27 - 4.20 uIU/mL [facility] Blood 04/04/2025 9:10 AM EDT 04/04/2025 9:15 AM EDT us Loy Rizo NAIL MAKING MACHINE SETTER LAB BLOOD ORDERABLES F inal Result Performing Organization Address [facility]/ZIP Co de Phone Number [address] [address] * (ABNORMAL) 25-OH vitamin D (04/04/2025 9:10 AM EDT) 25 OH VIT D (TOTAL) 11(L) 30 - 60 ng/mL [facility] Blood 04/04/2025 9:10 AM EDT 04/04/2025 9:15 AM EDT us Loy Rizo NAIL MAKING MACHINE SETTER LAB BLOOD ORDERABLES F inal Result Performing Organization Address City/[facility]/ZIP Co de Phone Number [address] [address] * (ABNORMAL) CBC and differential (04/04/2025 9:10 AM EDT) WBC 7.24 4.00 - 11.00 K/uL [facility] RBC 4.11(L) 4.50 - 5.90 M/uL [facility] HGB 12.4(L) 13.5 - 17.5 g/dL [facility] HCT 36.6(L) 41.0 - 53.0 % [facility] PLT 193 150 - 450 K/uL [facility] MCV 89.1 80.0 - 100.0 fL [facility] MCH 30.2 27.0 - 31.0 pg [facility] MCHC 33.9 32.0 - 36.0 g/dL [facility] RDW 14.4 11.5 - 14.5 % [facility] MPV 11.0 8.4 - 12.0 fL [facility] NRBC 0.00 0.00 /100 WBCs [facility] ABSOLUTE NRBC 0.00 0.00 K/uL [facility] DIFF METHOD Auto [facility] NEUTS 63.1 48.0 - 76.0 % [facility] LYMPHS 21.5 18.0 - 41.0 % [facility] MONOS 9.3 4.0 - 11.0 % [facility] EOS 5.4(H) 0.0 - 5.0 % [facility] BASOS 0.7 0.0 - 1.5 % [facility] Granulocytes, immature (%) 0.0 0.0 - 0.9 % [facility] ABSOLUTE NEUTS 4.57 1.92 - 7.60 K/uL [facility] ABSOLUTE LYMPHS 1.56 0.72 - 4.10 K/uL [facility] ABSOLUTE MONOS 0.67 0.16 - 1.10 K/uL [facility] ABSOLUTE EOS 0.39 0.00 - 0.50 K/uL [facility] ABSOLUTE BASOS 0.05 0.00 - 0.15 K/uL [facility] Granulocytes, immature 0.00 0.00 - 0.09 K/uL [facility] Blood 04/04/2025 9:10 AM EDT 04/04/2025 9:15 AM EDT us Loy Rizo NAIL MAKING MACHINE SETTER LAB BLOOD ORDERABLES F inal Result [address] [address] * Uric acid (04/04/2025 9:10 AM EDT) URIC ACID 5.7 2.4 - 7.0 mg/dL [facility] Blood 04/04/2025 9:10 AM EDT 04/04/2025 9:15 AM EDT us Loy Rizo NAIL MAKING MACHINE SETTER LAB BLOOD ORDERABLES F inal Result Performing Organization Address [facility] Co de Phone Number [address] [address] * (ABNORMAL) NT-proBNP (04/04/2025 9:10 AM EDT) NT-PROBNP 377(H) 0 - 125 pg/mL [facility] Blood 04/04/2025 9:10 AM EDT 04/04/2025 9:15 AM EDT us Loy Rizo NAIL MAKING MACHINE SETTER LAB BLOOD ORDERABLES F inal Result Performing Organization Address [facility] Co de Phone Number [address] [address] * (ABNORMAL) Hemoglobin A1c (04/04/2025 9:10 AM EDT) HEMOGLOBIN A1C 6.0(H) 4.3 - 5.8 % [facility] Blood 04/04/2025 9:10 AM EDT 04/04/2025 9:16 AM EDT us Loy Rizo NAIL MAKING MACHINE SETTER LAB BLOOD ORDERABLES F inal Result Performing Organization Address City/[facility]/ZIP Co de Phone Number [address] [address] * (ABNORMAL) Lipid panel (04/04/2025 9:10 AM EDT) HDL 64 mg/dL [facility] Comment: Interpretation <40 mg/dL: Low HDL cholesterol (major risk factor for CHD) Greater than or equal to 60 mg/dL: High HDL cholesterol ( negative risk factor for CHD) HDL - cholesterol is affected by a number of factors, e.g. smoking, excerise, hormones, sex and age. CHOLESTEROL 199 0 - 240 mg/dL [facility] TRIGLYCERIDES 62 30 - 160 mg/dL [facility] LDL 123 50 - 129 mg/dL [facility] Comment: LDL levels in terms of risk for coronary heart disease: <100 mg/dL: Optimal 100-129 mg/dL: Near or above optimal 130-159 mg/dL: Borderline high 160-189 mg/dL: High >190 mg/dL: Very High CARDIAC RISK RATIO 3.1(L) 3.4 - 5.0 [facility] Blood 04/04/2025 9:10 AM EDT 04/04/2025 9:15 AM EDT us Loy Rioz NAIL MAKING MACHINE SETTER LAB BLOOD ORDERABLES F inal Result Performing Organization Address City/[facility]/ZIP Co de Phone Number [address] [address] * Hepatitis C antibody, qualitative (2024 6:07 AM EST) HCV NON-REACTIV E NON-REACTI VE [facility] Blood 2024 6:07 AM EST 2024 6:13 AM EST us Clarissa Bush NAIL MAKING MACHINE SETTER LAB BLOOD ORDERABLES Fi nal Result Performing Organization Address City/[facility]/ZIP Co de Phone Number [address] [address] from Last 3 Months or Most Recently Relevant to Health Maintenance Insurance [facility] POS [facility] POS POS POS Advance Directives For more information, please contact: [phone] (9AM - 5PM [place]/[facility], Wednesday-Wednesday) Documents on File Type Date Recorded Patient Dovetailer Expl anation Healthcare Proxy 01/04/2025 2:52 PM * Full Code (Latest Code Status on File) Date Activated Date Inactivated Comments 12/30/2024 6:52 PM Question Answer Comments Code Status Confirmed With: Patient Care Teams Operations Superintendent Relationship Specialty Start Date End Date Renny Burton MD PCP - General Internal Medicine 12/30/24 Additional Source Comments The information contained in this document represents components of the legal health record. It is not the complete legal health record.[facility]
[2025-06-15 09:05] VITALS: BP 130/64; PULSE 78; TEMP 36.2; O2SAT 98; BMI 24.8
== END 2025-06-15 09:57 | disposition home or self-care (01) ==
LOC: HO.HMCH 09:00
DX: I10 Essential (primary) hypertension (principal); I50.9 Heart failure, unspecified; I42.6 Alcoholic cardiomyopathy; I48.91 Unspecified atrial fibrillation; F90.9 Attention-deficit hyperactivity disorder, unspecified type; M10.9 Gout, unspecified; R73.03 Prediabetes; E55.9 Vitamin D deficiency, unspecified

== ENCOUNTER → 2025-06-15 08:59 | Outpatient (BNVA) | payer OTHER, SELFPAY | DX: I11.0 Hypertensive heart disease with heart failure (principal); I50.9 Heart failure, unspecified; I42.6 Alcoholic cardiomyopathy; I48.91 Unspecified atrial fibrillation; F90.9 Attention-deficit hyperactivity disorder, unspecified type; M10.9 Gout, unspecified; R73.03 Prediabetes; E55.9 Vitamin D deficiency, unspecified; Z79.899 Other long term (current) drug therapy; Z13.31 Encounter for screening for depression; Z13.39 Encounter for screening examination for other mental health and behavioral disorders | CPT/HCPCS: 93005; 96127 ==

== ENCOUNTER 2025-09-28 09:04 | Outpatient (AMB) | payer OTHER, SELFPAY ==
[2025-09-28 09:07] VITALS: BP 150/84; PULSE 134; RESP 18; TEMP 36.3; O2SAT 96; BMI 26.0
--- NOTE | 2025-09-28 09:07 | A.OFFPC_ITS ---
Vital Signs 09/28/25 09:07 09/28/25 09:28 Height 6 ft 2 in Weight 202 lb 6 oz BMI 26.0 BP 150/84 H 142/86 H Blood Pressure Location Lt brachial Lt brachial Position Sitting Sitting Respiration 18 Pulse 134 H Pulse Source Pulse Oximeter Temp 97.3 F Temp Source Temporal Artery Scan Pulse Oximetry (%) 96 Oxygen Delivery Method Room Air Intake Visit Reasons: afib/cardiomyopathy/htn/adhd Family Counselor Required: No Accompanied by: Self / Same As Patient Allergies No Known Allergies Allergy (Verified 09/28/25 09:24) Medication List - Last Reconciled 09/28/25 by ALEXANDRIA Vega apixaban (Eliquis) 5 mg PO BID carvedilol 12.5 mg PO BID dextroamphetamine sulfate 10 mg PO DAILY digoxin 0.125 mg PO DAILY folic acid 1 mg PO DAILY furosemide 20 mg PO DAILY magnesium oxide 400 mg PO DAILY nicotine topical DAILY sacubitril-valsartan 24-26 mg (Entresto) 1 tab PO BID spironolactone 12.5 mg PO DAILY thiamine HCl (vitamin B1) 100 mg PO DAILY Tobacco use date assessed: 09/28/25 Fall risk assessment: No Falls in past year Last assessed Fall Risk: 09/28/25 Dental Screening Dental Screen Date: 09/28/25 Did you have a dental visit in the last 12 months?: Yes Did you have a dental problem in the last 6 months where you did not have access to dental care?: No Was dental information given to patient?: Patient has dentist HPI afib/cardiomyopathy/htn/adhd HPI Details The patient is a 64-year-old male presenting for AFib, heart failure, ADHD, hyperlipidemia, cardiomyopathy, htn follow up Patient reports that the only medication he has been taking his dextroamphetamine sulfate 10 mg daily Reports that his nutritionist public health is aware of this and is okay with it The patient states that he had an Holter monitor test done but he was not told the results as yet The patient reports that he needs a refill on the dextroamphetamine sulfate The patient had an AFib with RVR on 01/03/2025 and developed profound digital cyanosis after received IV metoprolol. Bedside echo showed EF of 30%. The patient was seen by cards and was loaded with dig for HR control. Restarted on diuretics and controlled medication. His EF improved to 45% after. The patient was discharged on Eliquis, digoxin, furosemide, carvedilol, Entresto, spironolactone Patient reports that he has stopped taking the medications because they were making him dizzy with certain movements He stated that he was scared that he was going to fall while the blood thinner Apparently, the patient did not report this to the nutritionist public health and went ahead and stopped the medications anyway In office the patient heart rate noted to be 134, blood pressure 142/86 and was noted to be in AFib upon auscultation. EKG done in office and confirmed the patient was in AFib with RVR. Discussed with the patient that he needs to start taking his medication to control his rate and at this time that isn't safe for him to be taken a stimulant. Explained to the patient that he would need to get clearance from his nutritionist public health before the dextroamphetamine sulfate could be refilled. Discussed in detailed the risk of stroke with him being in AFib and not taking his blood thinner. The patient reports that he will start taking his apixaban, digoxin, and carvedilol at least. He was encouraged to follow up with Cardiology to see if the Holter monitor showed continuous AFib or paroxysmal. Recent labs reviewed with the patient: BNP 348, TSH 1.40, vitamin-D 19, sodium 134, potassium 4.3, chloride 99 CO2 24, BUN 15, creatinine 0.80, glucose 98, albumin 4.4, total protein 7.6, calcium 9.7, alkaline phosphatase 90, total bilirubin 0.3, AST 24, ALT 17, globulin 3.2, estimated GFR 98, WBC 7.10, RBC 5.28, HGB 15.3, HCT 47.2, PLT 197, HDL 70, total cholesterol 191, triglycerides 38, LDL 113 The patient has been monitored by Dr. Barrett (cardiology) [facility], [facility] Medical History Atrial fibrillation Cardiomyopathy Gout Elevated BP without diagnosis of hypertension Surgical History History of arthroscopy of right knee Family History Father No problems noted. Mother No problems noted. Family/Other Malignant hyperthermia Social History Housing: House Alcohol intake: current Alcohol intake frequency: a few times a week Alcohol type: beer Patient Tobacco Use Status: Current everyday Tobacco user Tobacco use type: Cigar (2-3 a day) e-Cigarette/Vaping Use: Never Used Second Hand Smoke Exposure: Yes service: No Current occupational status: employed Cognitive needs: No Hearing needs: No Vision needs: Yes Questionnaire PHQ-9 Over the last 2 weeks, how often have you been bothered by any of the following problems? Depression Screening Interpretation: Negative Depression Screening Done: Yes Source: Developed by Drs. George Dela Cruz, Clarence Garcia and colleagues, with an educational binta from [employer]. Thrive Questionnaire Date Thrive assessed: 06/15/25 I am a: Patient What is your living situation today?: I have a steady place to live Within the past 12 months, did the food you bought not last and you didn't have the money to get more?: Never true Within the past 12 months, did you worry whether your food would run out before you got money to buy more?: Never true Do you have trouble paying for medicines?: No Do you have trouble getting transportation to medical appointments?: No Do you have trouble paying your heating and electricity bill?: No Do you have trouble taking care of your child, family member or friend?: No Do you have trouble with day-to-day activities such as bathing, preparing meals, shopping, managing finances, etc.?: No Are you currently unemployed and looking for a job?: No Are you interested in more education?: No Please select the resources that you would like help with: None Currently or been in a relationship where the following occur: No concerns reported THRIVE Score: 0 ANASTASIIA-7 AMB Questionnaire ANASTASIIA-7 Date ANASTASIIA - 7 assessed: 06/15/25 Source: Developed by Drs. George Dela Cruz, Clarence Garcia and colleagues, with an educational binta from [employer]. Review of Systems Const Denies headache(s) Eyes Denies loss of vision ENT Denies vertigo, Denies dizziness, Denies headache(s) and Denies sore throat Card Denies chest pain, Denies leg edema and Denies lightheadedness Resp Denies cough, Denies hemoptysis and Denies wheezing GI Denies abdominal pain, Denies melena, Denies constipation, Denies diarrhea and Denies vomiting Denies dysuria, Denies urinary frequency and Denies urinary urgency Musc Reports arthralgias (right thumb), Reports joint swelling (right thumb), Denies numbness and Denies tingling Neuro Denies Abnormal speech present, Denies behavioral changes, Denies vertigo, Denies dizziness, Denies headache(s), Denies loss of vision, Denies memory loss, Denies numbness and Denies tingling Psych Denies anxiety, Denies behavioral changes, Denies depression, Denies memory loss and Denies panic attacks Antonio/Lymph Denies easy bleeding and Denies easy bruising Aller/Immun Denies wheezing Physical exam (Primary Care) Vital Signs: Last Vital Signs Temp 97.3 F 09/28/25 09:07 Pulse 134 H 09/28/25 09:07 Resp 18 09/28/25 09:07 BP 142/86 H 09/28/25 09:28 Pulse Ox 96 09/28/25 09:07 Oxygen Delivery Method Room Air 09/28/25 09:07 BMI result Body Mass Index 26.0 Tobacco/Smoking Status: Tobacco use Status Tobacco use date assessed 09/28/25 09/28/25 09:17 Patient Tobacco Use Status Current everyday Tobacco 09/28/25 09:17 Tobacco use type Cigar (2-3 a day) 09/28/25 09:17 e-Cigarette/Vaping Use Never Used 09/28/25 09:17 Depression Screening Interpretation: Negative Thrive Assessment: Date of Thrive Assessment Date Thrive assessed 06/15/25 09/28/25 09:17 Currently or been in a relationship where the following occur: No concerns reported Const General: healthy appearing, no acute distress, alert and awake Nutritional Appearance: well nourished Orientation/consciousness: oriented to person, oriented to place and oriented to time HENMT Ears: TM's normal bilaterally General nose exam: Normal nasal mucous membranes and turbinates present Eyes Conjunctivae: conjunctivae normal Sclerae: sclerae normal Pupils: Equal, round and reactive pupils present Neck Neck: Yes no lymphadenopathy and Yes no JVD Thyroid: Thyroid normal Carotids: no bruits Resp Effort & Inspection: normal respiratory effort and not tachypneic Auscultation: no crackles, no rales, no rhonchi and no wheezes Cardio Rate: regular rate Rhythm: abnormal rhythm irregularly irregular Heart sounds: no murmurs and normal S1 and S2 GI Palpation (GI): Soft to palpation, nontender, no hepatomegaly and no splenomegaly Auscultation: normal bowel sounds General: Yes no CVA tenderness Back/Spine/Pelvis Back: no CVA tenderness Skin General skin exam: no rashes or lesions noted and dry skin Neuro General: oriented to person, oriented to place and oriented to time Cranial nerves: Yes Equal, round and reactive pupils present Speech: No Abnormal speech present Gait exam (Neuro): Normal gait present Motor exam (neuro): no tremor noted Extrem Right upper extremity: full ROM Left upper extremity: full ROM Right lower extremity: full ROM; no edema Left lower extremity: full ROM; no edema Psych Mental Status: mental status grossly normal Speech and movement: Normal speech and movement present Affect: normal affect Attitude: cooperative Thought process: Normal thought process present Coding Level of Care Code Est Pt Level 4 (67704) Diagnoses Hypertension, unspecified type I10 Hypertension type: unspecified Heart failure, unspecified HF chronicity, unspecified heart failure type I50.9 Heart failure type: unspecified Heart failure chronicity: unspecified 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 Atrial fibrillation, unspecified type I48.91 Atrial fibrillation type: unspecified Attention deficit hyperactivity disorder (ADHD), unspecified ADHD type F90.9 Attention deficit-hyperactivity disorder type: unspecified Gout of right foot, unspecified cause, unspecified chronicity M10.9 Gout site: foot Gout etiology: unspecified cause Chronicity: unspecified Laterality: right Prediabetes R73.03 Vitamin D deficiency E55.9 Elevated liver enzymes R74.8 Hyperlipidemia, unspecified hyperlipidemia type E78.5 Hyperlipidemia type: unspecified Time Spent (min) 43 Assessment & Plan Assessment & Plan (1) Hypertension: Code(s): I10 - Essential (primary) hypertension Category: Medical Qualifiers: Hypertension type: unspecified Qualified Code(s): I10 - Essential (primary) hypertension Plan: The patient's blood pressure was elevated at 142/86 mmHg. His report of prior lightheadedness and dizziness on a past medication may have been related to a blood pressure agent. Management will be coordinated with his nutritionist public health. (2) Heart failure: Code(s): I50.9 - Heart failure, unspecified Category: Medical Qualifiers: Heart failure type: unspecified Heart failure chronicity: unspecified Qualified Code(s): I50.9 - Heart failure, unspecified Plan: The patient has a history of heart failure BNP 348, was 377 previously. Lung sound is clear and no edema noted. Denies shortness of breath. Patient has stopped his furosemide and Entresto 24-26 mg b.i.d., and spironolactone 12.5 mg daily. Patient is currently not taking any medication. We will reports that he will start taking his digoxin, apixaban, carvedilol at least. Follow up with Cardiology (3) Cardiomyopathy: Code(s): I42.9 - Cardiomyopathy, unspecified Category: Medical Qualifiers: Cardiomyopathy type: alcoholic Qualified Code(s): I42.6 - Alcoholic cardiomyopathy Plan: The patient denies chest pain. No shortness a breath. He is currently not on any statin. He had stopped apixaban. Medication was reordered and the patient reports that he will start taking this medication again until he follow up with Cardiology. (4) Atrial fibrillation: Code(s): I48.91 - Unspecified atrial fibrillation Category: Medical Qualifiers: Atrial fibrillation type: unspecified Qualified Code(s): I48.91 - Unspecified atrial fibrillation Plan: The patient has a new diagnosis of atrial fibrillation and is not on anticoagulation, placing him at risk for stroke. During the visit, he was found to be tachycardic at 134 bpm with an irregular rhythm, concerning for active atrial fibrillation. An in-office EKG will be performed immediately to confirm the rhythm. The risks of stroke associated with atrial fibrillation were discussed. Will request records from the patient's nutritionist public health, Dr. Barrett (5) ADHD: Code(s): F90.9 - Attention-deficit hyperactivity disorder, unspecified type Category: Medical Qualifiers: Attention deficit-hyperactivity disorder type: unspecified Qualified Code(s): F90.9 - Attention-deficit hyperactivity disorder, unspecified type Plan: The patient has a long history of taking a stimulant medication, which is concerning in the setting of new-onset atrial fibrillation as it may be a contributing factor and increases stroke risk without anticoagulation. The stimulant prescription will not be refilled at this time due to safety concerns regarding stroke. Cardiology clearance is required before the medication can be safely prescribed, likely contingent on the initiation of a blood thinner. (6) Gout: Code(s): M10.9 - Gout, unspecified Category: Medical Qualifiers: Gout site: foot Gout etiology: unspecified cause Chronicity: unspecified Laterality: right Qualified Code(s): M10.9 - Gout, unspecified Plan: Patient complain of edema/pain in right thumb and clicking sound in the joint. The uric acid level was 6.2 on labs two months ago. He wants to hold off on the thumb xray for now because the pain is mild. Labs ordered to reassessed for gout. (7) Prediabetes: Code(s): R73.03 - Prediabetes Category: Medical Plan: The patient A1c is 6 % Discussed lifestyle modifications including dietary changes and physical activity We will recheck A1c in 3 months (8) Vitamin D deficiency: Code(s): E55.9 - Vitamin D deficiency, unspecified Category: Medical Plan: Vitamin-D level 11 Encouraged vitamin D3 2000 IU OTC daily (9) Elevated liver enzymes: Code(s): R74.8 - Abnormal levels of other serum enzymes Category: Medical Plan: AST 24, ALT 17, alkaline phosphatase 90 Reinforced avoiding alcohol, limit drugs containing acetaminophen or Tylenol, limit fatty foods We will repeat CMP in 3 months (10) HLD (hyperlipidemia): Code(s): E78.5 - Hyperlipidemia, unspecified Category: Medical Qualifiers: Hyperlipidemia type: unspecified Qualified Code(s): E78.5 - Hyperlipidemia, unspecified Plan: Triglycerides 38, total cholesterol 191, LDL 138, HDL 70 Discussed lifestyle modifications including dietary changes and physical activity We will repeat lipid panel in 3 months Plan Follow up in 3 months Orders: Orders Hemoglobin A1c 3 Months E55.9 - Vitamin D deficiency, unspecified, F90.9 - Attention-deficit hyperactivity disorder, unspecified type, I10 - Essential (primary) hypertension, I42.6 - Alcoholic cardiomyopathy, I48.91 - Unspecified atrial fibrillation, M10.9 - Gout, unspecified, R73.03 - Prediabetes, R74.8 - Abnormal levels of other serum enzymes Comprehensive [place]. Panel Fast 3 Months E55.9 - Vitamin D deficiency, unspecified, F90.9 - Attention-deficit hyperactivity disorder, unspecified type, I10 - Essential (primary) hypertension, I42.6 - Alcoholic cardiomyopathy, I48.91 - Unspecified atrial fibrillation, M10.9 - Gout, unspecified, R73.03 - Prediabetes, R74.8 - Abnormal levels of other serum enzymes UA CC w/rflx Micro + Cult 3 Months E55.9 - Vitamin D deficiency, unspecified, F90.9 - Attention-deficit hyperactivity disorder, unspecified type, I10 - Essential (primary) hypertension, I42.6 - Alcoholic cardiomyopathy, I48.91 - Unspecified atrial fibrillation, M10.9 - Gout, unspecified, R73.03 - Prediabetes, R74.8 - Abnormal levels of other serum enzymes TSH reflex Free T4 3 Months E55.9 - Vitamin D deficiency, unspecified, F90.9 - Attention-deficit hyperactivity disorder, unspecified type, I10 - Essential (primary) hypertension, I42.6 - Alcoholic cardiomyopathy, I48.91 - Unspecified atrial fibrillation, M10.9 - Gout, unspecified, R73.03 - Prediabetes, R74.8 - Abnormal levels of other serum enzymes Complete Blood Count Auto Diff 3 Months E55.9 - Vitamin D deficiency, unspecified, F90.9 - Attention-deficit hyperactivity disorder, unspecified type, I10 - Essential (primary) hypertension, I42.6 - Alcoholic cardiomyopathy, I48.91 - Unspecified atrial fibrillation, M10.9 - Gout, unspecified, R73.03 - Prediabetes, R74.8 - Abnormal levels of other serum enzymes Lipid Panel 3 Months E55.9 - Vitamin D deficiency, unspecified, F90.9 - Attention-deficit hyperactivity disorder, unspecified type, I10 - Essential (primary) hypertension, I42.6 - Alcoholic cardiomyopathy, I48.91 - Unspecified atrial fibrillation, M10.9 - Gout, unspecified, R73.03 - Prediabetes, R74.8 - Abnormal levels of other serum enzymes Vitamin D 25-OH Total 3 Months E55.9 - Vitamin D deficiency, unspecified, F90.9 - Attention-deficit hyperactivity disorder, unspecified type, I10 - Essential (primary) hypertension, I42.6 - Alcoholic cardiomyopathy, I48.91 - Unspecified atrial fibrillation, M10.9 - Gout, unspecified, R73.03 - Prediabetes, R74.8 - Abnormal levels of other serum enzymes NT Pro B Type Natriuretic Pept 3 Months E55.9 - Vitamin D deficiency, unspecified, F90.9 - Attention-deficit hyperactivity disorder, unspecified type, I10 - Essential (primary) hypertension, I42.6 - Alcoholic cardiomyopathy, I48.91 - Unspecified atrial fibrillation, M10.9 - Gout, unspecified, R73.03 - Prediabetes, R74.8 - Abnormal levels of other serum enzymes
[2025-09-28 09:28] VITALS: BP 142/86
--- OUTSIDE RECORDS SUMMARY | 2025-09-28 09:47 | XMS_ITS | Clinical Summary ---
Author Organization [facility] Address [address] [address] Phone Care Team Providers Care Commercial Loan Processor Name Role Phone Renny Burton MD Primary Care Provider [phone] Allergies No known active allergies Medications dextroamphetami ne sulfate 10 MG tablet Take 10 mg by mouth daily. 5 Active magnesium oxide (MAG-OX) 400 mg (241.3 mg elemental) tablet Take 1 tablet (400 mg total) by mouth daily. 30 tablet 5 Active Additional Information Patient not taking.Reported on 08/07/2025 spironolactone (ALDACTONE) 25 MG tablet Take 0.5 tablets (12.5 mg total) by mouth daily. 30 tablet 1 5 Active Additional Information Patient not taking.Reported on 08/07/2025 thiamine (VITAMIN B-1) 100 mg Tab tablet Take 1 tablet (100 mg total) by mouth daily. 30 tablet 5 Active Additional Information Patient not taking.Reported on 08/07/2025 apixaban (ELIQUIS) 5 mg tablet Take 1 tablet (5 mg total) by mouth 2 (two) times a day. 180 tablet 3 5 Active Additional Information Patient not taking.Reported on 08/07/2025 carvedilol (COREG) 12.5 MG tablet Take 1 tablet (12.5 mg total) by mouth 2 (two) times a day with meals. 180 tablet 3 5 Active Additional Information Patient not taking.Reported on 08/07/2025 digoxin (LANOXIN) 125 mcg tablet Take 1 tablet (0.125 mg total) by mouth daily. 90 tablet 3 5 Active Additional Information Patient not taking.Reported on 08/07/2025 amoxicillin (AMOXIL) 500 MG tablet Take 500 mg by mouth every 8 (eight) hours. 5 Active Active Problems Problem Noted Date Diagnosed Date Acute on chronic systolic heart failure 12/31/19 25 Assessment & Plan (08/07/2025 11:58 AM EDT): EF 40-45% on most recent echo. Pt has not been taking GDMT due to lightheadedness. I have restarted carvedilol, digoxin, and spironolactone. Will defer starting furosemide or Entresto due to his symptoms. Pt presents in AF with RVR. Pt to return in a week for an EKG. Will repeat cardioversion if still out of rhythm. Consider ablation if AF recurs on repeat monitor. Plan: Restart carvedilol Restart digoxin Restart spironolactone Assessment & Plan (01/02/2025 3:56 PM EST): [...] fibrillation with RVR 12/30/2024 Assessment & Plan (08/07/2025 11:52 AM EDT): Pt presents in AF today. He recently underwent a cardioversion and is unsure when he went back into AF. He denies any cardiac symptoms. He discontinued carvedilol and Eliquis due to lightheadedness. He stopped all medicines because of symptoms. Will have him restart carvedilol and Eliquis. Pt to return in 1 week for an EKG. If he is still in AF, will schedule a YUDY/DCCV. Will plan for a 14 day MCT to evaluate for further AF. We briefly discussed ablation but he would like to defer at this time. Plan: Restart Eliquis Restart carvedilol EKG in 1 week, cardioversion if still in AF MCT x14 days Assessment & Plan (01/02/2025 3:56 PM EST): [...] around 30%. Patient started on anticoagulation given [id number] score of 3. He tolerated coreg 3.125mg [...] around 30%. Patient started on anticoagulation given [id number] score of 3. - Will continue with [...] of around 30%, avoid calcium channel gene, pattern repair person recommended digoxin loading which we will continue overnight EKG revealed A-fib, ventricular response rate of 141 bpm, possible anterior infarct age-indeterminate. TSH is 2.60 Dig level is 1.4 after load. Patient with increased heart rates in 140s with ambulation this morning. - Will continue with digoxin 0.125 mg daily -Continue to monitor on telemetry. -Follow-up formal echocardiogram. Patient started on anticoagulation given [id number] score of 3. -Continue apixaban 5 mg [...] of around 30%, avoid calcium channel gene, pattern repair person recommended digoxin loading which we will continue overnight EKG showed possible anterior infarct age indeterminate Plan will institute recommendations as per cardiology, order formal echocardiogram, quality assurance monitor, continue digoxin, quality assurance monitor, check labs including TSH, electrolytes I [...] & Plan (01/01/2025 6:26 PM EST): Presents tami with a mild [...] Encounters Date Type Department Care Team Description 09/05/2025 8:00 AM EDT - 09/05/2025 11:59 PM EDT Hospital Encounter [place] [address] Lashawn Caldera DNP Discharge Disposition: Home or Self Care 08/28/2025 Procedure Pass [place] [address] 08/28/2025 Transcribe Orders [facility] [address], [address] [place] [address] Lashawn Caldera DNP Atrial fibrillation, unspecified type (Primary Dx) 08/07/2025 9:00 AM EDT Office Visit [facility] [address], [address] [place] [address] Lashawn Caldera DNP Atrial fibrillation with RVR (Primary Dx); Acute on chronic systolic heart failure 08/06/2025 2:05 PM EDT - 08/06/2025 11:59 PM EDT Hospital Encounter [facility] [address] [place] [address] Loy Rizo NP Discharge Disposition: Home or Self Care 07/13/2025 10:22 AM EDT - 07/13/2025 11:59 PM EDT Hospital Encounter [facility] [address] [place] [address] Loy Rizo NP Discharge Disposition: Home or Self Care 07/13/2025 Transcribe Orders [facility] [address] [place] [address] Loy Rizo NP Attention deficit hyperactivity disorder (ADHD), unspecified ADHD type (Primary Dx); Elevated blood pressure reading without diagnosis of hypertension; Primary hypertension; Atrial fibrillation, unspecified type; Gout, unspecified cause, unspecified chronicity, unspecified site from Last 3 Months Family History Medical [...] ecorded Are you denied basic needs s [facility] as food, clothing, or medical care? No 12/30/2024 In the past 12 months have y ou been in a relationship with a person who hurts, threatens, or tries to control you? No 12/30/2024 Are you denied basic needs s [facility] as food, clothing, or medical care? No [...] Sign Reading Time Taken Comments Blood Pressure 150/90 08/07/2025 8:56 AM EDT Pulse 56 08/07/2025 8:56 AM EDT Temperature 36.6 C (97.9 F) 01/03/2025 11:49 AM EST Respiratory Rate 18 01/03/2025 11:49 AM EST Oxygen Saturation 98% 08/07/2025 8:56 AM EDT Inhaled Oxygen Concentration - - Weight 88.9 kg (196 lb) 08/07/2025 8:56 AM EDT Height 182.9 cm (6' 0.01 ) 08/07/2025 8:56 AM ED T Body Mass Index 26.58 08/07/2025 8:56 AM EDT Plan of Treatment Upcoming Encounters Date Type Department Care Team (Late st Contact Info) Description 10/03/2025 8:00 AM EST Office Visit [facility] [address] [place] [address] [address]rd Floor, [address] [place], [place] [id number] Lashawn Caldera DNP 22 [facility], [address] [place] [id number] [email or web address] Health Maintenance Due Date Last Done Comments DEPRESSION SCREENING 1970 PNEUMOCOCCAL VACCINES (50+ years) (1 of 2 - PCV) 1977 COLOGUARD 2003 COLONOSCOPY 2003 COLORECTAL CANCER SCREENING 2003 FIT TEST 2003 FOBT 2003 SIGMOIDOSCOPY 2003 VIRTUAL COLONOSCOPY 2003 RSV VACCINE (1 - Risk 50-74 years 1-dose series) 2008 ZOSTER VACCINES (1 of 2) 2008 Adult Td,Tdap Booster 05/04/2021 05/04/2011 ABDOMINAL AORTIC ANEURYSM (AAA) SCREENING 2023 INFLUENZA VACCINE (#1) 2025 COVID-19 VACCINE ( - season) 2025 BLOOD PRESSURE 02/04/2026 08/07/2025 SMOKING Hx and SMOKELESS TOBACCO SCREENING 05/03/2026 05/03/2025 CREATININE LEVEL 07/13/2026 07/13/2025, 05/2025, 02/14/2025, Additional history exists POTASSIUM LEVEL 07/13/2026 07/13/2025, 05/2025, 02/14/2025, Additional history exists SCREENING FOR DIABETES 07/13/2028 07/13/2025, 2024 LIPID PANEL 07/13/2030 07/13/2025, 05/2025, 2024 HEPATITIS C SCREENING Completed 2024 HEPATITIS [...] Diagnosis Comments URINALYSIS W/REFLEX URINE CULTURE Routine 08/06/2025 2:05 PM EDT Attention deficit hyperactivity disorder (ADHD), unspecified ADHD type Elevated blood pressure reading without diagnosis of hypertension Primary hypertension Atrial fibrillation, unspecified type Gout, unspecified cause, unspecified chronicity, unspecified site NT-PROBNP Routine 07/13/2025 10:22 AM EDT Attention deficit hyperactivity disorder (ADHD), unspecified ADHD type Elevated blood pressure reading without diagnosis of hypertension Primary hypertension Atrial fibrillation, unspecified type Gout, unspecified cause, unspecified chronicity, unspecified site HEMOGLOBIN A1C Routine 07/13/2025 10:22 AM EDT Attention deficit hyperactivity disorder (ADHD), unspecified ADHD type Elevated blood pressure reading without diagnosis of hypertension Primary hypertension Atrial fibrillation, unspecified type Gout, unspecified cause, unspecified chronicity, unspecified site TSH WITH REFLEX Routine 07/13/2025 10:22 AM EDT Attention deficit hyperactivity disorder (ADHD), unspecified ADHD type Elevated blood pressure reading without diagnosis of hypertension Primary hypertension Atrial fibrillation, unspecified type Gout, unspecified cause, unspecified chronicity, unspecified site LIPID PANEL Routine 07/13/2025 10:22 AM EDT Attention deficit hyperactivity disorder (ADHD), unspecified ADHD type Elevated blood pressure reading without diagnosis of hypertension Primary hypertension Atrial fibrillation, unspecified type Gout, unspecified cause, unspecified chronicity, unspecified site COMPREHENSIVE METABOLIC PANEL Routine 07/13/2025 10:22 AM EDT Attention deficit hyperactivity disorder (ADHD), unspecified ADHD type Elevated blood pressure reading without diagnosis of hypertension Primary hypertension Atrial fibrillation, unspecified type Gout, unspecified cause, unspecified chronicity, unspecified site CBC AND DIFFERENTIAL Routine 07/13/2025 10:22 AM EDT Attention deficit hyperactivity disorder (ADHD), unspecified ADHD type Elevated blood pressure reading without diagnosis of hypertension Primary hypertension Atrial fibrillation, unspecified type Gout, unspecified cause, unspecified chronicity, unspecified site URIC ACID Routine 07/13/2025 10:22 AM EDT Attention deficit hyperactivity disorder (ADHD), unspecified ADHD type Elevated blood pressure reading without diagnosis of hypertension Primary hypertension Atrial fibrillation, unspecified type Gout, unspecified cause, unspecified chronicity, unspecified site 25-OH VITAMIN D Routine 07/13/2025 10:22 AM EDT Attention deficit hyperactivity disorder (ADHD), unspecified ADHD type Elevated blood pressure reading without diagnosis of hypertension Primary hypertension Atrial fibrillation, unspecified type Gout, unspecified cause, unspecified chronicity, unspecified site VITAMIN B12 Routine 07/13/2025 10:22 AM EDT Attention deficit hyperactivity disorder (ADHD), unspecified ADHD type Elevated blood pressure reading without diagnosis of hypertension Primary hypertension Atrial fibrillation, unspecified type Gout, unspecified cause, unspecified chronicity, unspecified site FOLATE Routine 07/13/2025 10:22 AM EDT Attention deficit hyperactivity disorder (ADHD), unspecified ADHD type Elevated blood pressure reading without diagnosis of hypertension Primary hypertension Atrial fibrillation, unspecified type Gout, unspecified cause, unspecified chronicity, unspecified site IRON AND IRON BINDING CAPACITY Routine 07/13/2025 10:22 AM EDT Attention deficit hyperactivity disorder (ADHD), unspecified ADHD type Elevated blood pressure reading without diagnosis of hypertension Primary hypertension Atrial fibrillation, unspecified type Gout, unspecified cause, unspecified chronicity, unspecified site HEPATITIS C ANTIBODY, QUALITATIVE Routine 2024 6:07 AM EST from Last 3 Months or Most Recently Relevant to Health Maintenance Results * Urinalysis w/reflex Urine Culture (08/06/2025 2:05 PM EDT) COLOR Yellow Yellow [facility] CLARITY Clear [facility] GLUCOSE Negative Negative [facility] BILI Negative Negative [facility] KETONES Negative Negative [facility] SPECIFIC GRAVITY 1.010 1.005 - 1.030 [facility] BLOOD Negative Negative [facility] PH 6.5 5.0 - 8.0 [facility] Protein-UA Negative Negative [facility] NITRITE Negative Negative [facility] Leukocyte esterase, ur Negative Negative [facility] Urine (Urine) 08/06/2025 2:0 5 PM EDT 08/06/2025 2:10 PM EDT us Loy Rizo RN STAFF URINE ORDERABLES Final Result [facility] [address] [place] [address] * Comprehensive metabolic panel (07/13/2025 10:22 AM EDT) SODIUM 134 133 - 146 mmol/L [facility] POTASSIUM 4.3 3.3 - 5.1 mmol/L [facility] CHLORIDE 99 96 - 108 mmol/L [facility] CO2 24 21 - 35 mmol/L [facility] BUN 15 6 - 19 mg/dL [facility] CREATININE 0.80 0.5 - 1.5 mg/dL [facility] GLUCOSE 98 70 - 99 mg/dL [facility] ALBUMIN 4.4 3.9 - 4.8 g/dL [facility] TOTAL PROTEIN 7.6 6.5 - 8.0 g/dL [facility] CALCIUM 9.7 8.4 - 10.3 mg/dL [facility] ALKALINE PHOSPHATASE 90 39 - 117 U/L [facility] TOTAL BILIRUBIN 0.3 0.0 - 1.2 mg/dL [facility] AST 24 0 - 37 U/L [facility] ALT 17 0 - 40 U/L [facility] GLOBULIN 3.2 1 - 4.8 g/dL [facility] EGFR 98 >59 mL/min/1.7 3m2 [facility] Comment:Estimated glomerular filtration rate calculated using the CKD-EPI refit equation. ANION GAP 15 10 - 20 mmol/L [facility] Blood 07/13/2025 10:2 2 AM EDT 07/13/2025 10:24 AM EDT us Loy Rizo RN STAFF LAB BLOOD ORDERABLES F inal Result Performing Organization Address City/[facility]/ZIP Co de Phone Number [address] [address] * TSH with reflex (07/13/2025 10:22 AM EDT) TSH 1.40 0.27 - 4.20 uIU/mL [facility] Blood 07/13/2025 10:2 2 AM EDT 07/13/2025 10:24 AM EDT us Loy Rizo RN STAFF LAB BLOOD ORDERABLES F inal Result Performing Organization Address City/[facility]/ZIP Co de Phone Number [address] [address] * (ABNORMAL) Iron and iron binding capacity (07/13/2025 10:22 AM EDT) IRON 53 45 - 160 ug/dL [facility] IRON BINDING CAPACITY 316 228 - 428 ug/dL [facility] TRANSFERRIN SATURAT. 17(L) 20 - 55 % [facility] Blood 07/13/2025 10:2 2 AM EDT 07/13/2025 10:24 AM EDT Loy Rizo RN STAFF LAB BLOOD ORDERABLES F inal Result [address] [address] * (ABNORMAL) 25-OH vitamin D (07/13/2025 10:22 AM EDT) 25 OH VIT D (TOTAL) 19(L) 30 - 60 ng/mL [facility] Blood 07/13/2025 10:2 2 AM EDT 07/13/2025 10:24 AM EDT Loy Rizo RN STAFF LAB BLOOD ORDERABLES F inal Result Performing Organization Address [facility] Co de Phone Number [address] [address] * CBC and differential (07/13/2025 10:22 AM EDT) WBC 7.10 4.00 - 11.00 K/uL [facility] RBC 5.28 4.50 - 5.90 M/uL [facility] HGB 15.3 13.5 - 17.5 g/dL [facility] HCT 47.2 41.0 - 53.0 % [facility] PLT 197 150 - 450 K/uL [facility] MCV 89.4 80.0 - 100.0 fL [facility] MCH 29.0 27.0 - 31.0 pg [facility] MCHC 32.4 32.0 - 36.0 g/dL [facility] RDW 13.2 11.5 - 14.5 % [facility] MPV 11.4 8.4 - 12.0 [facility] NRBC 0.00 0.00 /100 WBCs [facility] ABSOLUTE NRBC 0.00 0.00 K/uL [facility] DIFF METHOD Auto [facility] NEUTS 64.8 48.0 - 76.0 % [facility] LYMPHS 23.4 18.0 - 41.0 % [facility] MONOS 9.7 4.0 - 11.0 % [facility] EOS 1.3 0.0 - 5.0 % [facility] BASOS 0.7 0.0 - 1.5 % [facility] Granulocytes, immature (%) 0.1 0.0 - 0.9 % [facility] ABSOLUTE NEUTS 4.60 1.92 - 7.60 K/uL [facility] ABSOLUTE LYMPHS 1.66 0.72 - 4.10 K/uL [facility] ABSOLUTE MONOS 0.69 0.16 - 1.10 K/uL [facility] ABSOLUTE EOS 0.09 0.00 - 0.50 K/uL [facility] ABSOLUTE BASOS 0.05 0.00 - 0.15 K/uL [facility] Granulocytes, immature 0.01 0.00 - 0.09 K/uL [facility] Blood 07/13/2025 10:2 2 AM EDT 07/13/2025 10:24 AM EDT us Loy Rizo RN STAFF LAB BLOOD ORDERABLES F inal Result [address] [address] * Uric acid (07/13/2025 10:22 AM EDT) URIC ACID 6.2 2.4 - 7.0 mg/dL [facility] Blood 07/13/2025 10:2 2 AM EDT 07/13/2025 10:24 AM EDT Loy Rizo RN STAFF LAB BLOOD ORDERABLES F inal Result [address] [address] * (ABNORMAL) NT-proBNP (07/13/2025 10:22 AM EDT) NT-PROBNP 348(H) 0 - 125 pg/mL [facility] Blood 07/13/2025 10:2 2 AM EDT 07/13/2025 10:24 AM EDT us Loy Rizo RN STAFF LAB BLOOD ORDERABLES F inal Result Performing Organization Address City/[facility]/ZIP Co de Phone Number [address] [address] * Hemoglobin A1c (07/13/2025 10:22 AM EDT) HEMOGLOBIN A1C 5.8 4.3 - 5.8 % [facility] Blood 07/13/2025 10:2 2 AM EDT 07/13/2025 10:24 AM EDT us Loy Rizo RN STAFF LAB BLOOD ORDERABLES F inal Result Performing Organization Address [facility] Co de Phone Number [address] [address] * Folate (07/13/2025 10:22 AM EDT) FOLIC ACID 7.0 4.2 - 19.9 ng/mL [facility] Blood 07/13/2025 10:2 2 AM EDT 07/13/2025 10:24 AM EDT us Loy Rizo RN STAFF LAB BLOOD ORDERABLES F inal Result Performing Organization Address [facility]/ZIP Co de Phone Number [address] [address] * Vitamin B12 (07/13/2025 10:22 AM EDT) VITAMIN B12 265 232 - 1,245 pg/mL [facility] Blood 07/13/2025 10:2 2 AM EDT 07/13/2025 10:24 AM EDT us Loy Rizo RN STAFF LAB BLOOD ORDERABLES F inal Result Performing Organization Address City/[facility]/ZIP Co de Phone Number [address] [address] * (ABNORMAL) Lipid panel (07/13/2025 10:22 AM EDT) HDL 70 mg/dL [facility] Comment: Interpretation <40 mg/dL: Low HDL cholesterol (major risk factor for CHD) Greater than or equal to 60 mg/dL: High HDL cholesterol ( negative risk factor for CHD) HDL - cholesterol is affected by a number of factors, e.g. smoking, excerise, hormones, sex and age. CHOLESTEROL 191 0 - 240 mg/dL [facility] TRIGLYCERIDES 38 30 - 160 mg/dL [facility] LDL 113 50 - 129 mg/dL [facility] Comment: LDL levels in terms of risk for coronary heart disease: <100 mg/dL: Optimal 100-129 mg/dL: Near or above optimal 130-159 mg/dL: Borderline high 160-189 mg/dL: High >190 mg/dL: Very High CARDIAC RISK RATIO 2.7(L) 3.4 - 5.0 [facility] Blood 07/13/2025 10:2 2 AM EDT 07/13/2025 10:24 AM EDT us Loy Rizo RN STAFF LAB BLOOD ORDERABLES F inal Result Performing Organization Address [facility] Co de Phone Number [address] [address] * Hepatitis C antibody, qualitative (2024 6:07 AM EST) HCV NON-REACTIV E NON-REACTI VE [facility] Blood 2024 6:07 AM EST 2024 6:13 AM EST us Clarissa Bush RN STAFF LAB BLOOD ORDERABLES Fi nal Result Performing Organization Address [facility] Co de Phone Number [address] [address] from Last 3 Months or Most Recently Relevant to Health Maintenance Insurance WAL[employer] POS W[employer]DEN POS WALDEN POS WALDEN POS WALDEN POS WALDEN POS Advance Directives For more information, please contact: [phone] (9AM - 5PM [facility], Wednesday-Wednesday) Documents on File Type Date Recorded Patient Crystal Finisher Expl anation Healthcare Proxy 01/04/2025 2:52 PM * Full Code (Latest Code Status on File) Date Activated Date Inactivated Comments 12/30/2024 6:52 PM Question Answer Comments Code Status Confirmed With: Patient Care Teams Commercial Loan Processor Relationship Specialty Start Date End Date Renny Burton MD [address] [place] [address] [place] [address] PCP - General Internal Medicine 12/30/24 Additional Source Comments The information contained in this document represents components of the legal health record. It is not the complete legal health record.[facility]
--- OUTSIDE RECORDS SUMMARY | 2025-09-28 09:47 | XMS_ITS | Encounter Summary ---
Author Organization [facility] Address [address] [address] Phone Care Team Providers Care Associate Automation Engineer Name Role Phone Renny Burton MD Primary Care Provider [phone] Encounter Details Date Type Department Care Team ([facility] st Contact Info) Description 12/30/2024 Procedure Pass [facility] [address] [place] [address] Social History Tobacco Use Types Packs/Day Years [...] on file documented as of this encounter Functional Status * Calculated C-SSRS Risk Score (Lifetime/Recent) Answer Date of Assessment Author No Risk Indicated 12/30/2024 10:26 AM Meghna Honeycutt, ARABELLA * [place] Suicide Severity Rating Scale (Screener/Recent Self-Report) Question Answer Date of Assessment Author 1. Wish to be (Past 1 Month) No 025 10:26 AM Meghna Honeycutt RN 2. Non-Specific Active Suici waldo Thoughts (Past 1 Month) No 12/30/2024 10:26 AM Shaila Honeycutt, ARABELLA 6. Suicidal Behavior (Lifetime) No 10:26 AM Meghna Honeycutt RN documented as of this encounter Plan of Treatment Upcoming Encounters Date Type Department Care Team (Late st Contact Info) Description 10/03/2025 8:00 AM EST Office Visit [facility] [address] [place] [address] 3rd [facility], [address] [place] [address] Lashawn Caldera DNP [address] [place] [address], [address] [address] [email or web address] documented as of this encounter Visit Diagnoses Not on filedocumented in this encounter Care Teams Associate Automation Engineer Relationship Specialty Start Date End Date Renny Burton MD [address] [place] [address] [address] PCP - General Internal Medicine 12/30/24 documented as of this encounter Additional Source Comments The information contained in this document represents components of the legal health record. It is not the complete legal health record.[facility]
--- OUTSIDE RECORDS SUMMARY | 2025-09-28 09:47 | XMS_ITS | Encounter Summary ---
Author Organization [facility] Address [address] [address] Phone Care Team Providers Care Media Sales Representative Name Role Phone Renny Burton MD Primary Care Provider [phone] Encounter Details Date Type Department Care Team (Late st Contact Info) Description 08/28/2025 Procedure Pass Non-Invasive Cardiology [address] [place] [address] Social History Tobacco Use Types Packs/Day Years [...] Description 10/03/2025 8:00 AM EST Office Visit [facility] [address] [facility] 3rd Floor, [address] [place], [place] [id number] Lashawn Caldera DNP [address] [facility], [address] [place] [address] [email or web address] documented as of this encounter Visit Diagnoses Not on filedocumented in this encounter Care Teams Media Sales Representative Relationship Specialty Start Date End Date Renny Burton MD [address] [place] [address] Dr [address] [place] [id number] PCP - General Internal Medicine 12/30/24 documented as of this encounter Additional Source Comments The information contained in this document represents components of the legal health record. It is not the complete legal health record.[facility]
--- OUTSIDE RECORDS SUMMARY | 2025-09-28 09:47 | XMS_ITS | Encounter Summary ---
Author Organization [facility] Address [address] [address] Phone Care Team Providers Care Labor Commissioner Name Role Phone Renny Burton MD Primary Care Provider [phone] Encounter Details Date Type Department Care Team (Late st Contact Info) Description 02/05/2025 Procedure Pass [facility] [address] [place] [address] Social History Tobacco Use Types Packs/Day Years [...] Description 10/03/2025 8:00 AM EST Office Visit [facility] [address] [facility] [address]rd Floor, [address] [place] [address] Lashawn Caldera DNP [address] [facility], [address] [place] [address] [email or web address] documented as of this encounter Visit Diagnoses Not on filedocumented in this encounter Care Teams Labor Commissioner Relationship Specialty Start Date End Date Renny Burton MD [address] [place] [address] Dr Ge [address] [place] [id number] PCP - General Internal Medicine 12/30/24 documented as of this encounter Additional Source Comments The information contained in this document represents components of the legal health record. It is not the complete legal health record.[facility]
--- OUTSIDE RECORDS SUMMARY | 2025-09-28 09:48 | XMS_ITS | Patient Health Record ---
Author Organization [facility] Address [address] [place] [id number] Care Team Providers Care Export Freight Clerk Name Role Phone Renny Burton MD Primary Care Provider Ashok Bennett Jr Unavailable Reason For Referral No Information Medications Medication SIG (Take, Route, Frequency, Duration) Notes Start Date End Date Status OsmoPrep 1.102-0.398 GM 32 tablets Orall y over two days as directed; Duration: 2 day(s) 01/11/2013 11/29/2024 Active Lovastatin 40mg Acti ve Dextroamphetamine Sulfate 10mg Active Atenolol 100mg Activ e hydroCHLOROthiazide Active Problems Problem Type SNOMED Code ICD Code Onset Dates Problem Status W/U Status Risk Notes Problem Screening for colon cancer (460903820) Screening for colon cancer (V76.51) Active confirmed Plan Of Treatment Future Test Test Name Order Date COLONOSCOPY 01/11/2013 Insurance Providers Payer Name Payer Address Payer Phone Subscriber Number Group Number Insured Name Patient Relationship to Insured Coverage Start Date Coverage End Date [facility] [address] [place] [address] [id number] FRANCA REFUGIO Self - patient is the insured Medical (General) History Medical History History ICD Code HTN Elevated cholesterol Surgical History Surgery Date(Month/Year) knee surgery Hernia as a child Tendon surgery
== END 2025-09-28 10:04 | disposition home or self-care (01) ==
LOC: HO.HMCH 09:04
DX: I10 Essential (primary) hypertension (principal); I50.9 Heart failure, unspecified; I42.6 Alcoholic cardiomyopathy; I48.91 Unspecified atrial fibrillation; F90.9 Attention-deficit hyperactivity disorder, unspecified type; M10.9 Gout, unspecified; R73.03 Prediabetes; E55.9 Vitamin D deficiency, unspecified; R74.8 Abnormal levels of other serum enzymes; E78.5 Hyperlipidemia, unspecified